=== PATIENT | female | born 1935 | race Caucasian/White ===

== ENCOUNTER → 2016-04-16 | Outpatient (CLI) | payer MEDICARE, BC ==
--- NOTE | 2016-04-16 09:16 | CT ---
EXAMINATION TYPE: CT brain wo con DATE OF EXAM: 04/16/2016 8:57 AM COMPARISON: Previous study dated 04/13/2011. HISTORY: Concussion CT DLP: 1189 mGycm Automated exposure control for dose reduction was used. FINDINGS: There are generalized changes of sulcal prominence and ventriculomegaly, compatible with mild atrophi c change. There is diffuse periventricular white matter lucency, compatible with chronic white matter ischemic change. There is no acute focal lesion, mass effect or midline shift identified. I do not s ee evidence of intracranial blood. There is vascular calcification present. Visualized portions of the paranasal sinuses and mastoids are clear. No depressed skull fracture is s een. IMPRESSION: 1. NO ACUTE INTRACRANIAL ABNORMALITY. 2. MILDLY ATROPHIC CHANGE. 3. CHRONIC WHITE MATTER ISCHEMIC CHANGE.
== END | disposition home or self-care (01) ==
LOC: RADCTMAIN 08:37
PROVIDERS: ATTEND Emergency Medicine
DX: S06.0X9A Concussion with loss of consciousness of unspecified duration, initial encounter (principal); G31.9 Degenerative disease of nervous system, unspecified; I67.82 Cerebral ischemia
CPT/HCPCS: 70450

== ENCOUNTER 2016-06-07 17:30 | Observation (INO) | payer MEDICARE, BC ==
[2016-06-07] MEDS ORDERED: SODIUM CHLORIDE 0.9% 1,000 ML IV STA (18:13)
[2016-06-07] MEDS ORDERED: NITROGLYCERIN OINT 1 INCH/GM PACKET TOPICAL STA (18:13)
[2016-06-07] MEDS ORDERED: ASPIRIN 81 MG CHEW PO STA (18:13)
[2016-06-07 18:29] LABS: Basophils % (A) 0 %; CH 30.2; CHCM 33.2; Eosinophils # (A) 0.1 k/uL (0-0.7); Eosinophils % (A) 1 %; HCT 41.8 % (34.0-46.0); HDW 2.25; HGB 13.4 gm/dL (11.4-16.0); Luc # (Auto) 0.27; Luc % (Auto) 3; Lymphocytes # (A) 1.8 k/uL (1.0-4.8); Lymphocytes % (A) 18 %; MCH 29.4 pg (25.0-35.0); MCHC 32.1 g/dL (31.0-37.0); MCV 91.4 fL (80.0-100.0); Mean Platelet Volume 7.3; Monocytes # (A) 0.6 k/uL (0-1.0); Monocytes % (A) 6 %; Neutrophils # (A) 7.1 k/uL (1.3-7.7); Neutrophils % (A) 72 %; RBC 4.57 m/uL (3.80-5.40); WBC 9.9 k/uL (3.8-10.6); WBC (Perox) 9.89
[2016-06-07 18:40] LABS: ALT 34 U/L (9-52); AST 30 U/L (14-36); Alkaline Phosphatase 80 U/L (38-126); Anion Gap 11 mmol/L; Blood Urea Nitrogen 32 mg/dL (7-17); Calcium 9.2 mg/dL (8.4-10.2); Carbon Dioxide 27 mmol/L (22-30); Chloride 103 mmol/L (98-107); Glucose 105 mg/dL (74-99); Magnesium 1.9 mg/dL (1.6-2.3); Non-African American GFR(MDRD) >60 (>60 ml/min/1.73 sqM); Potassium 3.9 mmol/L (3.5-5.1); Sodium 141 mmol/L (137-145); Total Bilirubin 0.4 mg/dL (0.2-1.3); Total Protein 6.9 g/dL (6.3-8.2)
--- NOTE | 2016-06-07 18:40 | XR ---
EXAMINATION TYPE: XR chest 2V DATE OF EXAM: 06/07/2016 6:34 PM COMPARISON: NONE HISTORY: Process seen. TECHNIQUE: Frontal and lateral views of the chest are obtained. FINDINGS: Sternal wires, mediastinal clips, and epicardial pacer wires are present. There is chronic changes without suspicious focal air space opacity, pleural effusion, or pneumothorax seen. The card iac silhouette size is within normal limits. There is moderate to large size hiatal hernia. The osseo us structures are demineralized. Degenerative change left glenohumeral joint is noted. IMPRESSION: Chronic changes without acute pulmonary process.
[2016-06-07 18:47] LABS: INR 1.1 (<1.1); Partial Thromboplastin Time 26.7 sec (22.0-30.0); Prothrombin Time 10.8 sec (9.0-12.0)
[2016-06-07 18:49] LABS: Creatine Kinase 111 U/L (30-135)
[2016-06-07 19:02] LABS: Creatine Kinase MB 1.8 ng/mL (0.0-2.4); Troponin I <0.012 ng/mL (0.000-0.034)
--- NOTE | 2016-06-07 22:02 | ED ---
Chest Pain HPI - General Chief Complaint: Chest Pain Stated Complaint: CHEST PAIN, LEFT ARM, TOOK TWO NITRO Time Seen by Provider: 06/07/16 17:48 Source: patient Mode of arrival: wheelchair Limitations: no limitations - History of Present Illness Initial Comments: Centered with the left arm pain and left-sided chest pain also pain in the left shoulder started about 4:30 PM today she was quite busy today she was very busy physically lifting rearranging heavy boxes whole day and now initially she thought it could've been overexertion. That she stated she didn't have chest pain when she had a heart attack at this time and she had a CABG she status post CABG about 9 years ago and a she was bit short winded at that time not now she denies any pleuritic chest pain no fever no chills no nausea no vomiting no cold sweats - Related Data Home Medications Medication Instructions Recorded Confirmed Ascorbic Acid [Vitamin C] 500 mg PO DAILY 06/07/16 06/07/16 Aspirin EC [Ecotrin Low Dose] 81 mg PO DAILY 06/07/16 06/07/16 Calcium Carbonate/Vitamin D3 1 tab PO DAILY 06/07/16 06/07/16 [Caltrate 600 Plus D3 Tablet] Cholecalciferol [Vitamin D3] 1,000 unit PO DAILY 06/07/16 06/07/16 Ferrous Sulfate [Feosol] 325 mg PO BID 06/07/16 06/07/16 Losartan-Hctz 50-12.5 mg [Hyzaar 1 tab PO DAILY 06/07/16 06/07/16 50-12.5] Meclizine [Antivert] 25 mg PO HS 06/07/16 06/07/16 Nitroglycerin Sl Tabs [Nitrostat] 0.4 mg PO Q5M PRN 06/07/16 06/07/16 Omeprazole 20 mg PO DAILY 06/07/16 06/07/16 Psyllium Husk 100% [Metamucil] 6 gm PO HS 06/07/16 06/07/16 Simvastatin [Zocor] 20 mg PO HS 06/07/16 06/07/16 Allergies Allergy/AdvReac Type Severity Reaction Status Date / Time morphine Allergy Itching Verified 06/07/16 18:54 Review of Systems ROS Statement: Those systems with pertinent positive or pertinent negative responses have been documented in the HPI. ROS Other: All systems not noted in ROS Statement are negative. EKG Findings - EKG Comments: EKG Findings:: Seferino sinus rhythm ventricular rate is 70 MN interval is 184 QRS duration is 110 QT/QTc is 420/462 review of this EKG does not reveal any ST elevation or ST depression Past Medical History Past Medical History: Coronary Artery Disease (CAD), Hyperlipidemia, Hypertension History of Any Multi-Drug Resistant Organisms: None Reported Past Surgical History: Cholecystectomy, Coronary Bypass/CABG, Orthopedic Surgery Additional Past Surgical History / Comment(s): knee cataracts Past Psychological History: No Psychological Hx Reported Smoking Status: Never smoker Past Alcohol Use History: None Reported Past Drug Use History: None Reported General Exam - General Exam Comments Initial Comments: General: The patient is awake and alert, in no distress, and does not appear acutely ill. Skin: Skin is warm and dry and no rashes or lesions are noted. Eye: Pupils are equal, round and reactive to light, extra-ocular movements are intact; there is normal conjunctiva bilaterally. Ears, nose, mouth and throat: There are moist mucous membranes and no oral lesions. Neck: The neck is supple, there is no tenderness or JVD. Cardiovascular: There is a regular rate and rhythm. No murmur, rub or gallop is appreciated. Respiratory: To auscultation bilateral, no wheezing no rhonchi no distress respiratory antonio noticed Gastrointestinal: Soft, non-distended, non-tender abdomen without masses or organomegaly noted. There is no rebound or guarding present. Bowel sounds are unremarkable. Back: There is no tenderness to palpation in the midline. There is no obvious deformity. Musculoskeletal: Normal ROM, no tenderness, There is no pedal edema. There is no calf tenderness or swelling. No cords were appreciated. Neurological: CN II-XII intact, Cranial nerves III through XII are intact. There are no obvious motor or sensory deficits. Coordination appears grossly intact. Speech is normal. Psychiatric: Cooperative, appropriate mood & affect, normal judgment. Limitations: no limitations Course Vital Signs 06/07/16 06/07/16 06/07/16 17:34 17:45 17:54 Temperature 97.5 F L Pulse Rate 71 71 Pulse Rate [ 72 Bilateral Radial] Respiratory 18 14 Rate Blood Pressure 111/59 100/64 O2 Sat by Pulse 97 98 Oximetry 06/07/16 06/07/16 19:08 20:03 Temperature 98.4 F Pulse Rate 68 66 Pulse Rate [ Bilateral Radial] Respiratory 15 18 Rate Blood Pressure 121/70 106/62 O2 Sat by Pulse 98 97 Oximetry Clinically she looks well, CBC, INR, troponin, compressive metabolic panel, chest x-ray, EKG are unremarkable considering her very artery disease (to watch her for 23 hours do serial cardiac markers and cardiology consult, these were discussed with the patient and the family orally complete patient be admitted to observation with the cardiology consult Disposition Clinical Impression: Chest pain, History of coronary artery disease Disposition: ADMITTED IP TO THIS HOSP Condition: Good
[2016-06-07] MEDS ORDERED: NITROGLYCERIN SL TABS 0.4 MG TAB SUBLINGUAL PRN (22:03)
[2016-06-07] MEDS ORDERED: HEPARIN SODIUM,PORCINE/D5W PMX 25,000 UNIT in DEXTROSE/WATER 1 500ML.BAG IV SCH (22:15)
[2016-06-07] MEDS: HEPARIN SODIUM,PORCINE 5,000 UNIT/ML 1 ML VIAL IV ONE (22:56)
[2016-06-08 00:08] VITALS: BMI 30.2
[2016-06-08 00:12] LABS: Creatine Kinase 89 U/L (30-135)
[2016-06-08 00:25] LABS: Creatine Kinase MB 1.5 ng/mL (0.0-2.4); Troponin I <0.012 ng/mL (0.000-0.034)
[2016-06-08 06:06] LABS: Cholesterol 124 mg/dL (<200); HDL Cholesterol 49 mg/dL (40-60); Triglycerides 98 mg/dL (<150)
[2016-06-08 06:41] LABS: Creatine Kinase 78 U/L (30-135)
[2016-06-08] MEDS: HEPARIN SODIUM,PORCINE 5,000 UNIT/ML 1 ML VIAL IV ONE (06:43)
[2016-06-08] MEDS ORDERED: HEPARIN SODIUM,PORCINE 5,000 UNIT/ML 1 ML VIAL IV PRN (06:44)
[2016-06-08] MEDS ORDERED: HEPARIN SODIUM,PORCINE/D5W PMX 25,000 UNIT in DEXTROSE/WATER 1 500ML.BAG IV SCH (06:45)
[2016-06-08 06:53] LABS: Creatine Kinase MB 1.2 ng/mL (0.0-2.4); Troponin I <0.012 ng/mL (0.000-0.034)
[2016-06-08] MEDS ORDERED: CHOLECALCIFEROL 1,000 UNIT TAB PO SCH (09:00)
[2016-06-08] MEDS ORDERED: LOSARTAN-HCTZ 50-12.5 MG 1 EACH TAB PO SCH (09:00)
[2016-06-08] MEDS ORDERED: NON-FORMULARY DRUG (Aspirin Ec 81 MG) PO SCH (09:00)
[2016-06-08] MEDS ORDERED: PANTOPRAZOLE 40 MG TABLET PO SCH (09:00)
[2016-06-08] MEDS ORDERED: CALCIUM CARB-VIT D 500MG-200UN 1 EACH TAB PO SCH (09:00)
[2016-06-08] MEDS ORDERED: ASPIRIN 325 MG TAB PO SCH (09:00)
[2016-06-08] MEDS ORDERED: ASCORBIC ACID 500 MG TAB PO SCH (09:00)
[2016-06-08] MEDS ORDERED: FERROUS SULFATE 325 MG TAB PO SCH (09:00)
[2016-06-08 11:31] VITALS: BP 116/64; PULSE 71; RESP 18; TEMP 97.8
--- NOTE | 2016-06-08 13:09 | P.DS ---
Providers Date of admission: 06/07/16 22:03 Expected date of discharge: 06/08/16 Attending physician: Scott Mcfadden Primary care physician: Scott Mcfadden [facility] Course: 80-year-old female presented on the day of admission to the emergency room to be evaluated for a chief complaint of left shoulder left anterior chest wall pain. Patient stated that she been very busy throughout the day had been moving and physically lifting and rearranging heavy boxes the entire day. Patient stated that she felt like she overexerted herself. Patient stated the pain did not completely go away became concerned and presented to the emergency room to be evaluated for the above-mentioned symptoms. Patient denied any cough fever chills no nausea vomiting. Patient stated after arriving the chest pain had resolved. Patient does have a history of coronary artery disease prior coronary artery bypass grafting. Cardiac enzymes 3 sets were negative. Patient's chest pain sounds pleuritic probable muscle skeletal patient was felt to be appropriate to be discharged Impression discharge diagnosis Present on admission left shoulder anterior chest pain atypical negative cardiac enzymes no evidence of acute coronary syndrome Known history of coronary artery disease prior coronary artery bypass grafting 9 years prior Essential hypertension The above dictated assessment and findings were discussed with dr mcfadden . Impression and the plan of care have been dictated as directed. Echo Walsh nurse practitioner acting as a scribe for dr mcfadden. Patient Condition at Discharge: Good Plan - Discharge Summary Discharge Medication List Ascorbic Acid [Vitamin C] 500 mg PO DAILY 06/07/16 [History] Aspirin EC [Ecotrin Low Dose] 81 mg PO DAILY 06/07/16 [History] Calcium Carbonate/Vitamin D3 [Caltrate 600 Plus D3 Tablet] 1 tab PO DAILY [History] Cholecalciferol [Vitamin D3] 1,000 unit PO DAILY 06/07/16 [History] Ferrous Sulfate [Iron (65 MG Elemental)] 325 mg PO BID 06/07/16 [History] Losartan-Hctz 50-12.5 mg [Hyzaar 50-12.5] 1 tab PO DAILY 06/07/16 [History] Meclizine [Antivert] 25 mg PO HS 06/07/16 [History] Nitroglycerin Sl Tabs [Nitrostat] 0.4 mg PO Q5M PRN 06/07/16 [History] Omeprazole 20 mg PO DAILY 06/07/16 [History] Psyllium Husk 100% [Metamucil Packet] 6 gm PO HS 06/07/16 [History] Simvastatin [Zocor] 20 mg PO HS 06/07/16 [History] Follow up Appointment(s)/Referral(s): Scott Mcfadden MD [Primary Care Provider] - 1-2 days Discharge Disposition: HOME SELF-CARE
[2016-06-08] MEDS ORDERED: PSYLLIUM HUSK 100% 6 GM PACKET PO SCH (21:00)
[2016-06-08] MEDS ORDERED: ATORVASTATIN 10 MG TAB PO SCH (21:00)
[2016-06-08] MEDS ORDERED: MECLIZINE 25 MG TAB PO SCH (21:00)
--- NOTE | 2016-06-08 22:33 | HP ---
DATE OF ADMISSION: 06/07/2016 CHIEF COMPLAINT: Left arm pain. HISTORY OF PRESENT ILLNESS: This 80-year-old white female who has a prior history of heart disease came to the emergency room complaining of left biceps pain. She was doing a lot of heavy lifting and moving. EKG and enzymes are normal. The emergency room physician was concerned about sending her home. She had no nausea, vomiting, shortness of breath, palpitations, syncope, diaphoresis, etc. She feels fine. REVIEW OF SYSTEMS: She has had no other signs or symptoms. Past medical history, family history, and personal and social histories are all otherwise unremarkable. She takes: 1. Losartan. 2. Omeprazole. 3. Xanax p.r.n. 4. Lasix. 5. Aspirin. 6. Zocor. PHYSICAL EXAMINATION: Blood pressure 132/83 with a pulse of 75, respirations of 15, and she is afebrile. In general she appeared to be well developed, well nourished, in no acute distress. Skin color is normal. Skin is warm and dry. Lymph nodes are not enlarged. Head, ears, eyes, nose, mouth and throat were normal. Neck veins are not distended. Thyroid is not enlarged. Chest is clear. Cardiac exam is normal. The abdomen is soft, nontender. There are no masses or visceromegaly. Extremities are normal. Neurologically she is intact. She is admitted to the hospital with the diagnoses: 1. Left upper extremity myalgias. 2. ( ) 3. History of hypertension. 4. History of coronary artery disease. PLAN: 1. Bed rest. 2. IV fluids. 3. Serial EKGs and enzymes.
--- NOTE | 2016-06-08 22:35 | PN ---
DATE OF SERVICE: 06/08/2016 CHIEF COMPLAINT: Pain in the left arm. HISTORY OF PRESENT ILLNESS: This lady is doing well and all of her studies have been negative. She will go home. She will follow up in the office and she will be on the same medications she has been on. She will be set up for a stress study because she has been feeling a little bit tired lately, but she has had no other symptoms. Discharge will be arranged by the nurse practitioner.
== END 2016-06-08 14:30 | disposition home or self-care (01) ==
LOC: EC 17:30 → 3OBS 22:03
PROVIDERS: ADMIT Family Medicine; ATTEND Family Medicine
DX: R07.89 Other chest pain (principal); E78.5 Hyperlipidemia, unspecified; I10 Essential (primary) hypertension; M79.1 Myalgia; I25.10 Atherosclerotic heart disease of native coronary artery without angina pectoris; Z95.1 Presence of aortocoronary bypass graft; Z79.82 Long term (current) use of aspirin; Z79.899 Other long term (current) drug therapy; Z88.5 Allergy status to narcotic agent
CPT/HCPCS: 36415; 93005; 83880; 80061; 80053; 82550 ×2; 82553 ×2; 83735; 84484 ×2; 85025; 85610; 85730 ×2; 71020; 99285; 96376; G0378 ×2; J1644 ×3; 96365; 96366

== ENCOUNTER → 2016-09-02 | Outpatient (CLI) | payer MEDICARE, BC ==
--- NOTE | 2016-09-02 10:26 | US ---
EXAMINATION TYPE: US carotid duplex BILAT DATE OF EXAM: 09/02/2016 COMPARISON: NONE CLINICAL HISTORY: Mental status change R41.82. delay in speech, no prior issues. EXAM MEASUREMENTS: RIGHT: Peak Systolic Velocity (PSV) cm/sec ----- Right CCA: 62.4 ----- Right ICA: 115 ----- Right ECA: 69.2 ICA/CCA ratio: 1.8 RIGHT: End Diastole cm/sec ----- Right CCA: 19.2 ----- Right ICA: 38.1 ----- Right ECA: 8.8 LEFT: Peak Systolic Velocity (PSV) cm/sec ----- Left CCA: 52.3 ----- Left ICA: 105 ----- Left ECA: 88.8 ICA/CCA ratio: 2.0 LEFT: End Diastole cm/sec ----- Left CCA: 16.7 ----- Left ICA: 32.2 ----- Left ECA: 13.7 VERTEBRALS (direction of flow): Right Vertebral: Antegrade Left Vertebral: Antegrade Mild changes, no elevated velocities, bilateral torturous ICAs, no significant stenosis. Grayscale images show no significant focal plaque at carotid bulb level. Velocity measurements remain within normal limits in visualized portion of both internal carotid arteries. IMPRESSION: No hemodynamically significant stenosis is seen in either internal carotid artery.
== END | disposition home or self-care (01) ==
LOC: RADUSWWP 09:27
PROVIDERS: ATTEND Family Medicine
DX: R41.82 Altered mental status, unspecified (principal)
CPT/HCPCS: 93880

== ENCOUNTER → 2016-10-07 | Outpatient (CLI) | payer MEDICARE, BC ==
--- NOTE | 2016-10-12 12:36 | EM ---
HOLTER MONITOR The patient was monitored 24 hours. Baseline rhythm was sinus mechanism. The average rate 82 beats per minute, minimum was 61, maximum 106 beats per minute. Ventricular ectopic activity was present in the form of rare single PVCs. Supraventricular ectopic activity was present in the form of rare single PACs. No diary was available. CONCLUSION: 1. Sinus mechanism baseline rhythm. 2. Rare ventricular ectopic activity. 3. Rare supraventricular ectopic activity. 4. No diary was available. MTDD
== END | disposition home or self-care (01) ==
LOC: RADECHMAIN 12:06
PROVIDERS: ATTEND Family Medicine
DX: I49.8 Other specified cardiac arrhythmias (principal)
CPT/HCPCS: 93225; 93226

== ENCOUNTER → 2016-10-25 | Outpatient (CLI) | payer MEDICARE, BC ==
--- NOTE | 2016-10-26 10:31 | BD ---
EXAMINATION TYPE: MG DEXA axial skeleton. DATE OF EXAM: 10/25/2016 COMPARISON: 09.30.2014 CLINICAL HISTORY: M80.0 OSTEOPOROSIS Height: 63 Weight: 181 FRAX RISK QUESTIONS: Alcohol (3 or more units per day): NO Family History (Parent hip fracture): YES Glucocorticoids (More than 3mos): NO (Ex: prednisone, prednisolone, methylprednisolone, dexamethasone, and hydrocortisone). History of Fracture in Adulthood: YES Secondary Osteoporosis: NO 1. Type 1 Diabetes: NO 2. Hyperthyroidism: NO 3. Menopause before 45: NO 4. Malnutrition: NO 5. Chronic liver disease: NO Rheumatoid Arthritis: NO Current Tobacco Use: NO RISK FACTORS HISTORY OF: RIB FRACTURES X2, JULY 2016 Family History of Osteoporosis: YES, WITH BOTH HIPS FRACTURED Active: BEST SHE CAN, USES A CANE Diet low in dairy products/other sources of calcium: NO Postmenopausal woman: 51 YRS OLD Lost more than 2 inches in height since high school: YES Frequent falls: YES, USES CANE Hyperparathyroidism: NO Adrenal Insufficiency: NO MEDICATIONS: Prednisone or other steroids: NO Additional Medications: BP MEDS, HEART MEDS NSAIDs, CALCIUM AND VIT D, IRON TABLET AND BABY ASPIRIN. Additional History: OSTEOARTHRITIS, BILAT TKRS EXAM MEASUREMENTS: Bone mineral densitometry was performed using the [employer] System. Bone mineral density as measured about the Lumbar spine is: ----- L1-L4(G/cm2): 0.960 T Score Values are as follows: ----- L1: -2.8 ----- L2: -3.1 ----- L3: -1.0 ----- L4: -1.2 ----- L1-L4: -1.8 Bone mineral density has: Increased 1.1% since study of: 09.30.2014 Bone mineral density about the R hip (g/cm2): 0.713 Bone mineral density about the L hip (g/cm2): 0.564 T Score values are as follows: -----R Neck: -2.3 -----L Neck: -3.5 -----R Total: -2.3 -----L Total: -3.5 Bone mineral density has: Decreased -13.2% since study of: 09.30.2014 FRAX %'S: THERE IS A 64.4% CHANCE OF A MAJOR OSTEOPOROTIC FX AND A 53.4% CHANCE OF HIP FX.....PRO BABILITY IN 10 YRS TIME IMPRESSION: Osteoporosis (T Score less than -2.5) as noted by T Score values at the bilateral hips and 2 consecut ra levels in the low back remains present. Bone density is decreased in measurement in the bilateral hips. There remains increased fracture risk and therapy is usually indicated based on age.Re-Screen 1-2 years . NOTE: T-SCORE=SD OF THE YOUNG ADULT MEAN.
--- NOTE | 2016-10-27 08:22 | MM ---
Reason for exam: clinical finding. Last mammogram was performed 1 year and 5 months ago. History: Patient is postmenopausal. Family history of breast cancer in maternal cousin. Took estrogen for 2 years beginning at age 67. Physical Findings: Nurse Summary: A .25cm nodule in the right breast at 9 o'clock, and a 0.5cm nodule at 2:30 o'clock (nurse dw). MG 3D Diag Mammo W/Cad SARAH Bilateral CC and MLO view(s) were taken. Prior study comparison: June 02, 2015, bilateral MG 3d diag mammo w/cad SARAH. December 24, 2013, bilateral MG screening mammo w CAD. October 05, 2011, CAD bilateral diagnostic mammogram. The breast tissue is heterogeneously dense. This may lower the sensitivity of mammography. Finding: There are typically benign dystrophic, round calcifications in both breasts. There is no discrete abnormality. These results were verbally communicated with the patient and result sheet given to the patient on 10/25/16. ASSESSMENT: Incomplete: need additional imaging evaluation, BI-RAD 0 RECOMMENDATION: Ultrasound of both breasts. (Palpable by nurse).
== END | disposition home or self-care (01) ==
LOC: RADMAMWWP 13:26
PROVIDERS: ATTEND Family Medicine
DX: N64.4 Mastodynia (principal); M81.0 Age-related osteoporosis without current pathological fracture
CPT/HCPCS: 77080; 76642; G0204; G0279

== ENCOUNTER 2016-12-13 17:38 | Emergency (ER) | payer MEDICARE, BC ==
[2016-12-13 17:45] VITALS: BP 110/61; PULSE 81; RESP 16; TEMP 97.6
[2016-12-13] MEDS ORDERED: TOPICAL SKIN ADHESIVE 1 EACH AMP TOPICAL ONE (18:34)
[2016-12-13] MEDS ORDERED: DIPH,PERTUS(ACELL)TETVAC-LF 0.5 ML VIAL IM ONE (18:35)
[2016-12-13] MEDS ORDERED: ACETAMINOPHEN TAB 500 MG TAB PO STA (18:36)
--- NOTE | 2016-12-13 18:56 | ED ---
Wound/Laceration HPI - General Chief Complaint: Wound/Laceration Stated Complaint: head and arm lac Time Seen by Provider: 12/13/16 18:28 Source: patient, family Mode of arrival: wheelchair Limitations: no limitations - History of Present Illness Initial Comments: 81-year-old female patient presents to emergency department today for evaluation of a right arm skin tear and injury to her right parietal scalp. Patient states that she was in the shed reaching up into the rafters to grab something when a board fell and hit her in the head and then in the arm. She denies any loss of consciousness at the time of the injury. She states that she did have difficulty getting the bleeding from her scalp to stop, however bleeding is currently controlled. She states that this occurred around 11 AM. She states that she didn't come in right away because her transportation had an appointment. She denies any difficulty with range of motion to her arm. Patient denies any headache, neck pain, back pain, chest pain, shortness of breath, dizziness, weakness, abdominal pain, nausea, vomiting, or difficulties with bowel movements or urination. Family members deny any altered mental status or confusion. She is unsure when her last tetanus vaccine was. - Related Data Home Medications Medication Instructions Recorded Confirmed Ascorbic Acid [Vitamin C] 500 mg PO DAILY 06/07/16 12/13/16 Aspirin EC [Ecotrin Low Dose] 81 mg PO DAILY 06/07/16 12/13/16 Calcium Carbonate/Vitamin D3 1 tab PO DAILY 06/07/16 12/13/16 [Caltrate 600 Plus D3 Tablet] Cholecalciferol [Vitamin D3] 1,000 unit PO DAILY 06/07/16 12/13/16 Ferrous Sulfate [Iron (65 MG 325 mg PO BID 06/07/16 12/13/16 Elemental)] Losartan-Hctz 50-12.5 mg [Hyzaar 1 tab PO DAILY 06/07/16 12/13/16 50-12.5] Meclizine [Antivert] 25 mg PO HS 06/07/16 12/13/16 Nitroglycerin Sl Tabs [Nitrostat] 0.4 mg PO Q5M PRN 06/07/16 12/13/16 Omeprazole 20 mg PO DAILY 06/07/16 12/13/16 Psyllium Husk 100% [Metamucil 6 gm PO HS 06/07/16 12/13/16 Packet] Simvastatin [Zocor] 20 mg PO HS 06/07/16 12/13/16 Allergies Allergy/AdvReac Type Severity Reaction Status Date / Time morphine Allergy Itching Verified 12/13/16 17:45 Review of Systems ROS Statement: Those systems with pertinent positive or pertinent negative responses have been documented in the HPI. ROS Other: All systems not noted in ROS Statement are negative. Past Medical History Past Medical History: Coronary Artery Disease (CAD), Hyperlipidemia, Hypertension, Osteoarthritis (OA) History of Any Multi-Drug Resistant Organisms: None Reported Past Surgical History: Bladder Surgery, Cholecystectomy, Coronary Bypass/CABG, Orthopedic Surgery, Tubal Ligation Additional Past Surgical History / Comment(s): Bilat knee replace, bi lat cataracts Past Anesthesia/Blood Transfusion Reactions: No Reported Reaction Past Psychological History: No Psychological Hx Reported Smoking Status: Never smoker Past Alcohol Use History: None Reported Past Drug Use History: None Reported General Exam Limitations: no limitations General appearance: alert, in no apparent distress, other (Well-developed, well- nourished, female patient in no acute distress. Acutely responsive. Vital signs upon presentation were temperature 97.6, pulse 81, respirations 16, blood pressure 110/61, pulse ox 98% on room air.) Head exam: Present: normocephalic, other (There is a small laceration, puncture to the right parietal scalp with minimal surrounding swelling. Bleeding is controlled. No bony tenderness, step-off, or deformity noted.) Eye exam: Present: normal appearance, PERRL, EOMI. Absent: scleral icterus, conjunctival injection, nystagmus, periorbital swelling ENT exam: Present: normal exam, normal oropharynx, mucous membranes moist Neck exam: Present: normal inspection, full ROM, other (Nontender, no step-off, no deformity to firm midline palpation of the thoracic and lumbar vertebrae. Full range of motion without pain or limitation.). Absent: tenderness, meningismus, lymphadenopathy Respiratory exam: Present: normal lung sounds bilaterally. Absent: respiratory distress, wheezes, rales, rhonchi, stridor Cardiovascular Exam: Present: regular rate, normal rhythm, normal heart sounds. Absent: systolic murmur, diastolic murmur, rubs, gallop, clicks GI/Abdominal exam: Present: soft, normal bowel sounds. Absent: distended, tenderness, guarding, rebound, rigid Extremities exam: Present: full ROM (Without limitation pain, or difficulty.), normal capillary refill, other (Skin tear noted to the dorsal aspect of the right forearm, 3 cm x 4 cm.). Absent: tenderness, pedal edema, joint swelling, calf tenderness Back exam: Present: normal inspection, other (Nontender, no step-off, no deformity to firm midline palpation of the thoracic and lumbar vertebrae. Full range of motion without pain or limitation.). Absent: tenderness, vertebral tenderness Neurological exam: Present: alert, oriented X3, CN II-XII intact Psychiatric exam: Present: normal affect, normal mood Skin exam: Present: warm, dry, intact, normal color. Absent: rash Course Vital Signs 12/13/16 17:43 Temperature 97.6 F Pulse Rate 81 Respiratory 16 Rate Blood Pressure 110/61 O2 Sat by Pulse 98 Oximetry Procedures - Laceration Laceration #1 Time Out Performed: Yes Indication: other (Skin tear) Site: upper extremity (Right forearm) Size (cm): 3 (3cm x 4cm) Description: flap, irregular Depth: simple, single layer Pre-repair: irrigated extensively Type of Sutures: other (Dermabond) Patient Tolerated Procedure: well, no complications Medical Decision Making - Medical Decision Making 81-year-old female patient presented for evaluation of a small laceration/ puncture to her right parietal scalp, and a skin tear to her right forearm. Evaluation of the laceration to her scalp did show more of a puncture type wound , no closure necessary, bleeding controlled. Physical exam revealed a skin tear to her right forearm. Was able to cleanse the area and irrigate. Did tease skin back over the care and was able to Dermabond this closed. Neurological status is intact. Patient is acutely responsive, speech is fluid, fully verbal, answers questions appropriately. She was educated regarding worsening head injury symptoms. She is instructed to monitor her wounds for signs or symptoms of infection. Her tetanus was updated today. She is instructed to follow up for recheck with her primary care physician in one to 2 days. She is instructed to return here immediately for any new, worsening, or concerning symptoms. Patient verbalizes understanding and agrees with this plan. Disposition Clinical Impression: Skin tear of right forearm without complication, Puncture wound of scalp Disposition: HOME SELF-CARE Condition: Good Instructions: Head Injury (ED), Skin Adhesive Care (ED), Skin Tear (ED) Additional Instructions: Monitor wound to right forearm for signs or symptoms of infection including redness, swelling, drainage of pus him a fever, or chills. Monitor for signs of worsening head injury including but not limited to headache, dizziness, visual change, nausea, vomiting, or confusion. Follow up with her primary care physician for recheck in 1-2 days. Return here immediately for any new, worsening, or concerning symptoms. Referrals: Scott Carrillo MD [Primary Care Provider] - 1-2 days Time of Disposition: 18:55
== END 2016-12-13 19:03 | disposition home or self-care (01) ==
LOC: EC 17:38
DX: S51.811A Laceration without foreign body of right forearm, initial encounter (principal); S01.03XA Puncture wound without foreign body of scalp, initial encounter; I25.10 Atherosclerotic heart disease of native coronary artery without angina pectoris; E78.5 Hyperlipidemia, unspecified; I10 Essential (primary) hypertension; M19.90 Unspecified osteoarthritis, unspecified site; Z96.653 Presence of artificial knee joint, bilateral; Z23 Encounter for immunization; Z88.5 Allergy status to narcotic agent; Z79.82 Long term (current) use of aspirin; Z79.899 Other long term (current) drug therapy; W20.8XXA Other cause of strike by thrown, projected or falling object, initial encounter; Y93.89 Activity, other specified; Y92.89 Other specified places as the place of occurrence of the external cause
CPT/HCPCS: 12002; 90471; 90715; 99283

== ENCOUNTER → 2017-10-27 | Outpatient (CLI) | payer MEDICARE, BC ==
--- NOTE | 2017-10-31 08:35 | MM ---
Reason for exam: screening (asymptomatic). Last mammogram was performed 1 year ago. History: Patient is postmenopausal. Family history of breast cancer in maternal cousin. Took estrogen for 2 years beginning at age 67. Physical Findings: A clinical breast exam by your physician is recommended on an annual basis and results should be correlated with mammographic findings. MG 3D Screening Mammo W/Cad Bilateral CC and MLO view(s) were taken. Technologist: Shirin Perez RT (R)(M) Prior study comparison: October 25, 2016, bilateral MG 3d diag mammo w/cad SARAH. June 02, 2015, bilateral MG 3d diag mammo w/cad SARAH. No significant changes when compared with prior studies. ASSESSMENT: Benign, BI-RAD 2 RECOMMENDATION: Routine screening mammogram of both breasts in 1 year.
== END | disposition home or self-care (01) ==
LOC: RADMAMWWP 09:10
PROVIDERS: ATTEND Family Medicine
DX: Z12.31 Encounter for screening mammogram for malignant neoplasm of breast (principal)
CPT/HCPCS: 77063; 77067

== ENCOUNTER → 2018-06-02 | Outpatient (CLI) | payer MEDICARE, BC ==
[2018-06-02 17:38] LABS: Blood Urea Nitrogen 30 mg/dL (7-17)
--- NOTE | 2018-06-06 13:02 | CT ---
EXAMINATION TYPE: CT abdomen pelvis w con DATE OF EXAM: 06/02/2018 HISTORY: RUQ pain. Palpate pain mid abdomen. CT DLP: 1335mGycm Automated Exposure Control for Dose Reduction was Utilized. CONTRAST: CT scan of the abdomen and pelvis is performed with IV Contrast, patient injected with 100 mL of Isov ue 300. COMPARISON: None. FINDINGS: LUNG BASES: Within the limited images of the thorax there is complete herniation of the stomach into the thorax without evidence of current gastric volvulus. The stomach folds upon itself distally but d oes not appear twisted or obstructed. The pylorus is mild thickening that may relate to contraction. No significant contrast is seen within the distal esophagus. Distal esophagus is nondilated. Also wit hin the hernia defect is herniation of mesenteric vasculature, the pancreas, and mesenteric fat. The celiac axis is also seen at the hernia defect. LIVER/GB: There is very minimal intrahepatic biliary ductal dilatation that may relate to this patien t's postcholecystectomy status. Punctate benign solitary hepatic granuloma is present. Gallbladder cazares rgically absent. Postsurgical dilatation of the extrahepatic common bile duct is seen. PANCREAS: Again the pancreas is located within the mediastinum posteriorly. Hepatic duct is slightly prominent however no gross evidence of pancreatic mass is seen.. SPLEEN: No significant abnormality is seen. ADRENALS: Very mild thickening of the adrenal glands is seen although the adrenals maintain their nor mal adreniform shape suggesting underlying adrenal gland hyperplasia (mild degree). KIDNEYS: There is a large right renal cyst measuring 17.4 x 12.5 x 18.7 cm. This has mass effect upon the right kidney although there is no alteration in function of the remaining kidney. This also has mass effect upon the renal vein, inferior vena cava crating a diminutive caliber, and adjacent bowel. This extends into the pelvis occupying the entire right lateral abdomen. There is no resultant hydro nephrosis seen. Left renal cortical cyst measures 3.3 cm. Numerous left renal sinus cysts are present . No hydronephrosis. BOWEL: There is diffuse bowel wall thickening of the sigmoid colon and numerous sigmoid diverticula. Mild haziness throughout the mesentery suggesting component of mild mesenteric edema. Moderate amount retained colonic stool is present. The cecum is displaced towards midline. UTERUS/ADNEXA: Atrophic otherwise unremarkable. LYMPH NODES: No greater than 1cm abdominal or pelvic lymph nodes are appreciated. Nonenlarged lymph n ode measures 5 mm in short axis noted along the right external iliac chain on image 57. OSSEOUS STRUCTURES: There is diffuse osseous demineralization. Nonspecific sclerotic lesion within th e left iliac bone is present. Mild degenerative changes of the spine are noted. There is grade 1 ante rolisthesis of L4 on L5, likely on a degenerative basis due to hypertrophic facets. OTHER: Extensive atherosclerosis is seen of the abdominal aorta and its branches. IMPRESSION: 1. Large benign-appearing right renal cyst without internal complexity. This measures up to 18.7 cm i n craniocaudal dimension and has mass effect upon the surrounding intra-abdominal structures with dim inutive caliber of the inferior vena cava due to compression. Symptomatic percutaneous drainage could be considered. 2. Entirely intrathoracic stomach with large hernia defect. Nearly the entirety of the pancreas is in trathoracic within the hernia defect in addition to the celiac axis. 3. Long segment bowel wall thickening of the sigmoid colon with numerous colonic diverticula. Finding s are likely sequela of chronic colitis. Correlate with clinical symptoms to exclude mild acute compo nent as there is mild mesenteric haziness throughout the abdomen and pelvis slightly limiting evaluat ion for pericolonic fat stranding.
== END | disposition home or self-care (01) ==
LOC: RADCTMAIN 15:48
PROVIDERS: ATTEND Family Medicine
DX: N28.1 Cyst of kidney, acquired (principal); K57.30 Diverticulosis of large intestine without perforation or abscess without bleeding; K44.9 Diaphragmatic hernia without obstruction or gangrene; Z88.5 Allergy status to narcotic agent; Z88.6 Allergy status to analgesic agent
CPT/HCPCS: 82565; 84520; 74177; 36415; Q9967

== ENCOUNTER 2018-08-25 09:03 | Day surgery (SDC) | payer MEDICARE, BC ==
[2018-08-25 09:26] VITALS: TEMP 98.2
[2018-08-25 11:42] VITALS: RESP 16
[2018-08-25 12:07] VITALS: BP 139/74; PULSE 68
--- NOTE | 2018-08-25 13:08 | US ---
EXAMINATION TYPE: US renal cyst aspiration DATE OF EXAM: 08/25/2018 COMPARISON: CT 06/02/2018 HISTORY: Ascites. PROCEDURE: Maximal barrier technique was utilized. The skin overlying a suitable path to the patient's right si ded renal cyst was localized with ultrasound and the right lower quadrant and the overlying skin was prepped and draped. Ultrasound was utilized with sterile technique. Lidocaine was used for local ane sthesia and a skin roberth made with a scalpel. A 6 Luxem[place]ger catheter was advanced under direct ultrasound guidance into the cyst and approximately 2 liters of serous fluid were removed. Catheter was withdr awn and hemostasis achieved. There is no immediate complication; the patient is discharged in stable condition following observation. IMPRESSION: STATUS POST ULTRASOUND GUIDED CYST DRAINAGE FOR PALLIATION OF PATIENT'S RIGHT RENAL CYST . THIS PROCEDURE WAS PERFORMED BY THE UNDERSIGNED.
== END 2018-08-25 12:00 | disposition home or self-care (01) ==
LOC: RADPROMAIN 09:03
PROVIDERS: ATTEND Urology
DX: N28.1 Cyst of kidney, acquired (principal); R18.8 Other ascites
CPT/HCPCS: 50390

== ENCOUNTER → 2018-11-21 | Outpatient (CLI) | payer MEDICARE, BC ==
--- NOTE | 2018-11-23 09:24 | MM ---
Reason for exam: screening (asymptomatic). Last mammogram was performed 1 year and 1 month ago. History: Patient is postmenopausal. Family history of breast cancer in maternal cousin. Took estrogen for 2 years beginning at age 67. Physical Findings: A clinical breast exam by your physician is recommended on an annual basis and results should be correlated with mammographic findings. MG 3D Screening Mammo W/Cad Bilateral CC and MLO view(s) were taken. Prior study comparison: October 27, 2017, bilateral MG 3d screening mammo w/cad. October 25, 2016, bilateral MG 3d diag mammo w/cad SARAH. The breast tissue is heterogeneously dense. This may lower the sensitivity of mammography. No significant changes when compared with prior studies. ASSESSMENT: Benign, BI-RAD 2 RECOMMENDATION: Routine screening mammogram of both breasts in 1 year.
== END | disposition home or self-care (01) ==
LOC: RADMAMWWP 13:24
PROVIDERS: ATTEND Family Medicine
DX: Z12.31 Encounter for screening mammogram for malignant neoplasm of breast (principal)
CPT/HCPCS: 77063; 77067

== ENCOUNTER 2018-12-30 07:47 | Emergency (ER) | payer MEDICARE, BC ==
[2018-12-30 07:51] VITALS: BP 127/75; PULSE 75; RESP 18; TEMP 97.7
[2018-12-30] MEDS ORDERED: Acetaminophen-Codeine 300-30mg TAB PO STA (08:06)
[2018-12-30] MEDS ORDERED: DIAZEPAM 5 MG/ML 2 ML INJ IM ONE (08:06)
--- NOTE | 2018-12-30 08:09 | ED ---
General Adult HPI - General Chief complaint: Back Pain/Injury Stated complaint: fall, back pain Time Seen by Provider: 12/30/18 07:50 Source: patient, RN notes reviewed Mode of arrival: wheelchair Limitations: no limitations - History of Present Illness Initial comments: This is an 83-year-old female presents emergency Department complaining of left-sided back pain. Patient states she slipped and fell last Tuesday after having gone to [employer]. Patient states the pain initially wasn't that bad but over the week the pain persisting has gotten a little worse. Patient denies any central back pain. Patient states it is on the left side just next to the spine. Patient denies any numbness weakness. Patient denies hitting her head or losing conscious. Patient denies any neck pain. Patient denies any chest pain difficulty breathing shortness of breath. Patient denies any extremity pain. Patient denies any problems with incontinence or urinary retention - Related Data Home Medications Medication Instructions Recorded Confirmed Aspirin EC [Ecotrin Low Dose] 81 mg PO DAILY 06/07/16 12/30/18 Calcium Carbonate/Vitamin D3 1 tab PO DAILY 06/07/16 12/30/18 [Caltrate 600 Plus D3 Tablet] Cholecalciferol [Vitamin D3 (25 1,000 unit PO DAILY 06/07/16 12/30/18 Mcg = 1000 Iu)] Ferrous Sulfate [Iron (65 MG 325 mg PO BID 06/07/16 12/30/18 Elemental)] Losartan-Hctz 50-12.5 mg [Hyzaar 1 tab PO DAILY 06/07/16 12/30/18 50-12.5] Nitroglycerin Sl Tabs [Nitrostat] 0.4 mg PO Q5M PRN 06/07/16 12/30/18 Simvastatin [Zocor] 20 mg PO HS 06/07/16 12/30/18 Multivit-Min/FA/Lycopen/Lutein 1 tab PO DAILY 08/17/18 12/30/18 [Centrum Silver Tablet] Previous Rx's Medication Instructions Recorded Cyclobenzaprine [Flexeril] 5 mg PO BID #10 tablet 12/30/18 Ibuprofen [Motrin] 400 mg PO Q6HR #20 tab 12/30/18 Allergies Allergy/AdvReac Type Severity Reaction Status Date / Time morphine Allergy Itching Verified 12/30/18 08:38 Review of Systems ROS Statement: Those systems with pertinent positive or pertinent negative responses have been documented in the HPI. ROS Other: All systems not noted in ROS Statement are negative. Past Medical History Past Medical History: Coronary Artery Disease (CAD), Hyperlipidemia, Hypertension, Osteoarthritis (OA) Additional Past Medical History / Comment(s): right renal cyst History of Any Multi-Drug Resistant Organisms: None Reported Past Surgical History: Appendectomy, Bladder Surgery, Cholecystectomy, Coronary Bypass/CABG, Orthopedic Surgery, Tubal Ligation Additional Past Surgical History / Comment(s): Bilat knee replace, bi lat cataracts, CABG 3 vessel 12 years ago, D and C Past Anesthesia/Blood Transfusion Reactions: No Reported Reaction Additional Past Anesthesia/Blood Transfusion Reaction / Comment(s): but does say that sometimes when they "put me out it is hard to wake up" Past Psychological History: No Psychological Hx Reported Smoking Status: Never smoker Past Alcohol Use History: None Reported Past Drug Use History: None Reported - Past Family History Mother Family Medical History: Coronary Artery Disease (CAD) Father Family Medical History: Coronary Artery Disease (CAD) General Exam - General Exam Comments Initial Comments: GENERAL: Patient is well-developed and well-nourished. Patient is nontoxic and well- hydrated and is in mild distress. ENT: Neck is soft and supple. No significant lymphadenopathy is noted. Oropharynx is clear. Moist mucous membranes. Neck has full range of motion without eliciting any pain. EYES: The sclera were anicteric and conjunctiva were pink and moist. Extraocular movements were intact and pupils were equal round and reactive to light. Eyelids were unremarkable. PULMONARY: Unlabored respirations. Good breath sounds bilaterally. No audible rales rhonchi or wheezing was noted. CARDIOVASCULAR: There is a regular rate and rhythm without any murmurs gallops or rubs. ABDOMEN: Soft and nontender with normal bowel sounds. No palpable organomegaly was noted. There is no palpable pulsatile mass. SKIN: Skin is clear with no lesions or rashes and otherwise unremarkable. NEUROLOGIC: Patient is alert and oriented x3. Cranial nerves II through XII are grossly intact. Motor and sensory are also intact. Normal speech, volume and content. Symmetrical smile. MUSCULOSKELETAL: Normal extremities with adequate strength and full range of motion. Patient has tenderness on the paraspinal region on the left side in the thoracic region as well as a lumbar region. Patient has no spinous process tenderness specifically. LYMPHATICS: No significant lymphadenopathy is noted PSYCHIATRIC: Normal psychiatric evaluation. Limitations: no limitations Course Vital Signs 12/30/18 07:48 Temperature 97.7 F Pulse Rate 75 Respiratory 18 Rate Blood Pressure 127/75 O2 Sat by Pulse 98 Oximetry Medical Decision Making - Medical Decision Making T-spine shows no acute abnormality when compared to old x-rays. Lumbar spine shows no acute abnormalities. I went back in and reevaluate the patient after she received Toradol and Valium she was doing considerably better. Disposition Clinical Impression: Back strain Disposition: HOME SELF-CARE Condition: Good Instructions (If sedation given, give patient instructions): Thoracic Back Str ain (ED) Prescriptions: Cyclobenzaprine [Flexeril] 5 mg PO BID #10 tablet Ibuprofen [Motrin] 400 mg PO Q6HR #20 tab Is patient prescribed a controlled substance at d/c from ED?: No Referrals: Scott Carrillo MD [Primary Care Provider] - 1-2 days Time of Disposition: 09:10
--- NOTE | 2018-12-30 08:54 | XR ---
EXAMINATION TYPE: XR thoracic spine 2V , 3 VIEWS DATE OF EXAM ORDERED: 12/30/2018 HISTORY: Fall . COMPARISON: None. FINDINGS: There has been a midline sternotomy. The most superior sternal suture has fractured. There has been a cholecystectomy. The bones are diffusely osteopenic. There is diffuse hypertrophic spondylosis throughout the spine. T he spine is not seen well in the lateral projection. A wedge compression fracture of one of the mid d orsal vertebra, age not determined. Pedicles are difficult to visualize. Paraspinal soft tissues are normal. IMPRESSION: 1. DIFFUSE OSTEOPENIA. 2. LIMITED VISUALIZATION OF FINE. 3. WEDGE COMPRESSION DEFORMITY OF ONE OF THE MID DORSAL VERTEBRA, AGE NOT DETERMINED. 4. POOR VISUALIZATION OF THE PEDICLES.
--- NOTE | 2018-12-30 08:56 | XR ---
EXAMINATION TYPE: XR lumbar spine 2 or 3V , 3 VIEWS DATE OF EXAM ORDERED: 12/30/2018 HISTORY: Fall . COMPARISON: None. FINDINGS: There is been a previous cholecystectomy. There is diffuse osteopenia throughout the spine likely on the basis of osteoporosis. There is a dege nerative grade 1 bordering on grade 2 spondylolisthesis of L4 on L5. Alignment is otherwise maintaine d. There is a superior endplate infraction of T12, L1 and L2. This hypertrophic spondylosis and spond ylosis deformans throughout the lumbar region. IMPRESSION: 1. DIFFUSE OSTEOPENIA, LIKELY ON THE BASIS OF OSTEOPOROSIS. 2. 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 3. ENDPLATE INFRACTIONS OF T12, L1-L2, AGE NOT DETERMINED. 4. DEGENERATIVE CHANGE.
== END 2018-12-30 09:28 | disposition home or self-care (01) ==
LOC: EC 07:47
DX: S39.012A Strain of muscle, fascia and tendon of lower back, initial encounter (principal); I25.10 Atherosclerotic heart disease of native coronary artery without angina pectoris; I10 Essential (primary) hypertension; E78.5 Hyperlipidemia, unspecified; M19.90 Unspecified osteoarthritis, unspecified site; Z79.82 Long term (current) use of aspirin; Z79.899 Other long term (current) drug therapy; Z88.5 Allergy status to narcotic agent; Z95.1 Presence of aortocoronary bypass graft; Z96.653 Presence of artificial knee joint, bilateral; W01.0XXA Fall on same level from slipping, tripping and stumbling without subsequent striking against object, initial encounter; Y92.22 Religious institution as the place of occurrence of the external cause
CPT/HCPCS: 72070; 72100; 99284; 96372; J3360

== ENCOUNTER → 2020-01-23 | Outpatient (CLI) | payer MEDICARE, BC ==
--- NOTE | 2020-01-23 11:43 | MM ---
Reason for exam: additional evaluation requested from prior study. Last mammogram was performed 1 year and 2 months ago. History: Patient is postmenopausal. Family history of breast cancer in maternal cousin. Took estrogen for 2 years beginning at age 67. Physical Findings: Nurse did not find any significant physical abnormalities on exam. MG 3D Diag Mammo W/Cad SARAH Bilateral CC and MLO view(s) were taken. Prior study comparison: November 21, 2018, bilateral MG 3d screening mammo w/cad. October 27, 2017, bilateral MG 3d screening mammo w/cad. The breast tissue is heterogeneously dense. This may lower the sensitivity of mammography. No significant new findings when compared with previous films. These results were verbally communicated with the patient and result sheet given to the patient on 01/23/20. ASSESSMENT: Benign, BI-RAD 2 RECOMMENDATION: Routine screening mammogram of both breasts in 1 year. Manage patient on a clinical basis.
== END | disposition home or self-care (01) ==
LOC: RADMAMWWP 10:20
PROVIDERS: ATTEND Family Medicine
DX: N64.4 Mastodynia (principal)
CPT/HCPCS: 77066; G0279; 77062

== ENCOUNTER 2020-05-01 13:41 | Inpatient (IN) | payer MEDICARE, BC ==
[2020-05-01] MEDS ORDERED: MORPHINE SULFATE 4 MG/ML SYRINGE IVP STA (13:57)
[2020-05-01] MEDS ORDERED: METOCLOPRAMIDE 5 MG/ML 2 ML VIAL IVP STA (13:57)
--- NOTE | 2020-05-01 14:13 | ED ---
Lower Extremity Injury HPI - General Chief Complaint: Fall Stated Complaint: Poss L Hip Fracture Time Seen by Provider: 05/01/20 13:49 Source: EMS Mode of arrival: EMS Limitations: no limitations - History of Present Illness Initial Comments: Patient is an 84-year-old female presenting to the emergency department via EMS after she had a trip and fall at home. Patient is complaining of left hip pain. Patient states she fell mostly on her left hip and is unable to move. She denies hitting her head, denies neck pain. She denies any other injuries from this fall other than her left hip. She denies any previous surgeries of her hips. Patient denies being on blood thinners. Patient was given 1.25 mg of Versed by the EMS prior to arrival as well as 4 mg of Zofran. Patient initially told EMS that she was ALLERGIC to morphine so they were hesitant to give her anything else for pain. Patient has no further complaints at this time. Upon arrival to the ER, her vital signs are stable. - Related Data Home Medications Medication Instructions Recorded Confirmed Aspirin EC [Ecotrin Low Dose] 81 mg PO DAILY 06/07/16 12/30/18 Calcium Carbonate/Vitamin D3 1 tab PO DAILY 06/07/16 12/30/18 [Caltrate 600 Plus D3 20 Mcg (800 Iu)] Cholecalciferol [Vitamin D3 (25 1,000 unit PO DAILY 06/07/16 12/30/18 Mcg = 1000 Iu)] Ferrous Sulfate [Iron (65 MG 325 mg PO BID 06/07/16 12/30/18 Elemental)] Losartan-Hctz 50-12.5 mg [Hyzaar 1 tab PO DAILY 06/07/16 12/30/18 50-12.5] Nitroglycerin Sl Tabs [Nitrostat] 0.4 mg PO Q5M PRN 06/07/16 12/30/18 Simvastatin [Zocor] 20 mg PO HS 06/07/16 12/30/18 Multivit-Min/FA/Lycopen/Lutein 1 tab PO DAILY 08/17/18 12/30/18 [Centrum Silver Tablet] Previous Rx's Medication Instructions Recorded Cyclobenzaprine [Flexeril] 5 mg PO BID #10 tablet 12/30/18 Ibuprofen [Motrin] 400 mg PO Q6HR #20 tab 12/30/18 Allergies Allergy/AdvReac Type Severity Reaction Status Date / Time morphine Allergy Itching Verified 05/01/20 13:54 Review of Systems ROS Statement: Those systems with pertinent positive or pertinent negative responses have been documented in the HPI. ROS Other: All systems not noted in ROS Statement are negative. Past Medical History Past Medical History: Coronary Artery Disease (CAD), Hyperlipidemia, Hypertension, Osteoarthritis (OA) Additional Past Medical History / Comment(s): right renal cyst History of Any Multi-Drug Resistant Organisms: None Reported Past Surgical History: Appendectomy, Bladder Surgery, Cholecystectomy, Coronary Bypass/CABG, Orthopedic Surgery, Tubal Ligation Additional Past Surgical History / Comment(s): Bilat knee replace, bi lat cataracts, CABG 3 vessel 12 years ago, D and C Past Anesthesia/Blood Transfusion Reactions: No Reported Reaction Additional Past Anesthesia/Blood Transfusion Reaction / Comment(s): but does say that sometimes when they "put me out it is hard to wake up" Past Psychological History: No Psychological Hx Reported Smoking Status: Never smoker Past Alcohol Use History: None Reported Past Drug Use History: None Reported - Past Family History Mother Family Medical History: Coronary Artery Disease (CAD) Father Family Medical History: Coronary Artery Disease (CAD) General Exam - General Exam Comments Initial Comments: GENERAL: Patient is well-developed and well-nourished. Patient is nontoxic and in mild distress, actively dry heaving. HEAD: Atraumatic, normocephalic.there are no hematomas, no signs of cough fracture. EYES: Pupils equal round and reactive to light, extraocular movements intact, sclera anicteric, conjunctiva are normal. Eyelids were unremarkable. ENT: TMs normal, nares patent, oropharynx clear without exudates. Moist mucous membranes. NECK: Normal range of motion, supple without lymphadenopathy or JVD. LUNGS: Unlabored respirations. Breath sounds clear to auscultation bilaterally and equal. No wheezes rales or rhonchi. HEART: Regular rate and rhythm without murmurs, rubs or gallops. ABDOMEN: Soft, nontender, normoactive bowel sounds. No guarding, no rebound. No masses appreciated. : Deferred MUSCULOSKELETAL: She has significant pain of the left hip, unable to active range of motion secondary to pain. She is neurovascular intact. Rest of extremities are normal , no pain. No pitting or edema. No clubbing or cyanosis. NEUROLOGICAL: Patient is alert and oriented x 3. Motor and sensory are also intact. Cranial nerves II through XII grossly intact. Symmetrical smile. Normal speech. PSYCH: Normal mood, normal affect. SKIN: Warm, Dry, normal turgor, no rashes or lesions noted. Limitations: no limitations Course Vital Signs 05/01/20 05/01/20 13:55 15:35 Temperature 98.0 F Pulse Rate 77 81 Respiratory 18 18 Rate Blood Pressure 135/81 107/65 O2 Sat by Pulse 96 93 L Oximetry Medical Decision Making - Medical Decision Making patient is an 84-year-old female presenting via EMS after a trip and fall, injuring her left hip. She was served 1.25 mg of her side and 4 mg of Zofran and the EMS prior to arrival. She stated she was ALLERGIC to morphine so they're hesitant to give her anything else for the pain. She denies hitting her head, no neck pain, no pain anywhere else except for her hip. No previous surgeries of her hip. x-rays reveal a left proximal femoral neck fracture. Patient was given pain control, Reglan, she is still in moderate amount of pain. Patient will be admitted, patient accepted by Dr. Sotelo. We will put Dr. Carrillo on for medical management. patient will be NPO after midnight. Presurgical labs are pending at this time. Case discussed with Dr. Rodriguez. - Lab Data Result diagrams: 05/01/20 15:28 - EKG Data EKG Comments: EKG shows sinus rhythm with first-degree block, right BBB, left anterior fascicular block, this is a change from her previous EKG and 06/07/2016. Ventricular rate 75, AL interval 212, QTC 460. Disposition Clinical Impression: Fall, Fracture of femoral neck, left Disposition: HOME SELF-CARE Condition: Stable Is patient prescribed a controlled substance at d/c from ED?: No Decision Date: 05/01/20 Decision Time: 15:02
[2020-05-01] MEDS ORDERED: NALOXONE 0.4 MG/ML 1 ML VIAL IV PRN (14:57)
[2020-05-01] MEDS ORDERED: ACETAMINOPHEN TAB 325 MG TAB PO PRN (14:57)
[2020-05-01] MEDS ORDERED: ONDANSETRON 4 MG/2 ML VIAL IVP PRN (14:57)
--- NOTE | 2020-05-01 14:57 | XR ---
EXAMINATION TYPE: XR Hip LT and AP Pelvis DATE OF EXAM: 05/01/2020 COMPARISON: None HISTORY: Trip and fall TECHNIQUE: Left hip is examined in 2 projections and supplemented with an AP pelvis. FINDINGS: There is a proximal femoral neck fracture to the left hip. Femoral head articulates with th e acetabulum. Joint space narrowing is present. IMPRESSION: 1. Proximal left femoral neck fracture
--- NOTE | 2020-05-01 15:13 | XR ---
EXAMINATION TYPE: XR chest 1V DATE OF EXAM: 05/01/2020 COMPARISON: 06/07/2016 INDICATION: Hip fracture TECHNIQUE: Single frontal view of the chest is obtained. FINDINGS: The heart size is mildly prominent. The pulmonary vasculature is upper limits for normal. No suspicious focal consolidation is evident. Large air-filled hiatal hernia is evident. IMPRESSION: 1. Cardiomegaly with mild vascular prominence. 2. Large hiatal hernia
[2020-05-01 15:39] LABS: Basophils % (A) 0 %; Eosinophils # (A) 0.1 k/uL (0-0.7); Eosinophils % (A) 0 %; HCT 43.4 % (34.0-46.0); HGB 14.5 gm/dL (11.4-16.0); Lymphocytes # (A) 1.3 k/uL (1.0-4.8); Lymphocytes % (A) 8 %; MCH 30.8 pg (25.0-35.0); MCHC 33.4 g/dL (31.0-37.0); MCV 92.2 fL (80.0-100.0); Monocytes # (A) 0.7 k/uL (0-1.0); Monocytes % (A) 4 %; Neutrophils # (A) 13.9 k/uL (1.3-7.7); Neutrophils % (A) 86 %; Platelet Count 369 k/uL (150-450); RDW 12.9 % (11.5-15.5); WBC 16.2 k/uL (3.8-10.6)
[2020-05-01] MEDS: MORPHINE SULFATE 4 MG/ML SYRINGE IV PRN ×2 (15:45→20:29)
[2020-05-01] MEDS: SODIUM CHLORIDE 0.9% 1,000 ML IV SCH (15:45)
[2020-05-01 15:48] LABS: ALT 29 U/L (4-34); AST 36 U/L (14-36); African American GFR (CKD) >90 (>60 ml/min/1.73 sqM); Albumin 3.6 g/dL (3.5-5.0); Alkaline Phosphatase 69 U/L (38-126); Anion Gap 5 mmol/L; Blood Urea Nitrogen 24 mg/dL (7-17); Calcium 8.9 mg/dL (8.4-10.2); Carbon Dioxide 27 mmol/L (22-30); Chloride 105 mmol/L (98-107); Glucose 111 mg/dL (74-99); Non-African American GFR(CKD) 85 (>60 ml/min/1.73 sqM); Partial Thromboplastin Time 23.2 sec (22.0-30.0); Prothrombin Time 10.3 sec (9.0-12.0); Sodium 137 mmol/L (137-145); Total Bilirubin 0.6 mg/dL (0.2-1.3); Total Protein 6.6 g/dL (6.3-8.2)
[2020-05-02] MEDS: MORPHINE SULFATE 4 MG/ML SYRINGE IV PRN ×3 (02:16→11:46)
[2020-05-02] MEDS: SODIUM CHLORIDE 0.9% 1,000 ML IV SCH ×2 (06:09→22:25)
--- NOTE | 2020-05-02 07:57 | P.HPOR ---
History of Present Illness H&P Date: 05/02/20 Chief Complaint: Left hip pain The patient's a 84-year-old female who is a community ambulator presents after falling injuring her left hip yesterday. 7 unable to really bear weight since the injury. She denies previous pols. Review of Systems Musculoskeletal: left: hip pain Past Medical History Past Medical History: Coronary Artery Disease (CAD), Hyperlipidemia, Hypertension, Osteoarthritis (OA) Additional Past Medical History / Comment(s): right renal cyst; fall at home 04/30/20 History of Any Multi-Drug Resistant Organisms: None Reported Past Surgical History: Appendectomy, Bladder Surgery, Cholecystectomy, Coronary Bypass/CABG, Orthopedic Surgery, Tubal Ligation Additional Past Surgical History / Comment(s): Bilat knee replace, bilat cataracts, CABG 3 vessel 12 years ago, D and C Past Anesthesia/Blood Transfusion Reactions: No Reported Reaction Additional Past Anesthesia/Blood Transfusion Reaction / Comment(s): stares that sometimes when they "put me out it is hard to wake up" Past Psychological History: No Psychological Hx Reported Smoking Status: Never smoker Past Alcohol Use History: None Reported Past Drug Use History: None Reported - Past Family History Mother Family Medical History: Coronary Artery Disease (CAD) Father Family Medical History: Coronary Artery Disease (CAD) Medications and Allergies Home Medications Medication Instructions Recorded Confirmed Type Aspirin EC [Ecotrin Low Dose] 81 mg PO DAILY 06/07/16 05/01/20 History Calcium Carbonate/Vitamin D3 1 tab PO DAILY 06/07/16 05/01/20 History [Caltrate 600 Plus D3 20 Mcg (800 Iu)] Ferrous Sulfate [Iron (65 MG 325 mg PO BID 06/07/16 05/01/20 History Elemental)] Nitroglycerin Sl Tabs [Nitrostat] 0.4 mg PO Q5M PRN 06/07/16 05/01/20 History Simvastatin [Zocor] 20 mg PO HS 06/07/16 05/01/20 History Multivit-Min/FA/Lycopen/Lutein 1 tab PO DAILY 08/17/18 05/01/20 History [Centrum Silver Tablet] Cholecalciferol [Vitamin D3 (25 25 mcg PO DAILY 05/01/20 05/01/20 History Mcg = 1000 Iu)] Furosemide [Lasix] 20 mg PO DIRECTED PRN 05/01/20 05/01/20 History Losartan Potassium 50 mg PO DAILY 05/01/20 05/01/20 History Allergies Allergy/AdvReac Type Severity Reaction Status Date / Time morphine Allergy Itching Verified 05/01/20 16:16 Physical Examination - Fracture left hip Location of fracture: Left femoral neck Appearance: swelling (Minimal) Compartments: soft Distal extremity neurovascularly intact: Yes Proximal joint involvement: No Distal joint involvement: No Results Alert and oriented 4 Nontender over the cervical, thoracic, and lumbar spine/no step-off No point tenderness about the upper extremities /painless passive motion both upper extremities Pelvis stable to external rotation stress Shortening and external rotation left lower extremity/pain with passive motion left hip Painless logroll right hip Nontender both knees ,ankles and feet - Labs Labs: Abnormal Lab Results - Last 24 Hours (Table) 05/01/20 05/01/20 Range/Units 15:28 15:28 WBC 16.2 H (3.8-10.6) k/uL Neutrophils # 13.9 H (1.3-7.7) k/uL BUN 24 H (7-17) mg/dL Glucose 111 H (74-99) mg/dL H & H 05/01/20 Range/Units 15:28 Hgb 14.5 (11.4-16.0) gm/dL Hct 43.4 (34.0-46.0) % Coagulation 05/01/20 Range/Units 15:28 INR 1.0 (<1.2) Result Diagrams: 05/01/20 15:28 05/01/20 15:28 - Diagnostic results Hip x-ray: image reviewed (displaced left subcapital femoral neck fracture) Assessment and Plan Assessment: Displaced left subcapital femoral neck fracture History of heart disease Plan: I talked to the patient length regarding her condition and recommended surgical intervention. We will plan to proceed with left hip hemiarthroplasty this afternoon. We will await medical clearance. Time with Patient: Greater than 30
--- NOTE | 2020-05-02 11:30 | CONS ---
CONSULTATION CHIEF COMPLAINT: Left femur fracture. HISTORY OF PRESENT ILLNESS: This is another admission for this 84-year-old fairly well-preserved white female. She has a history of hypertension, coronary artery disease. She apparently fell at home and was brought to the hospital with a left femur fracture. REVIEW OF SYSTEMS: She has had no syncope, neurologic signs or symptoms, change in vision or hearing, chest pain, palpitations, orthopnea, PND. She has a history of coronary artery disease, but has not had any angina or signs or symptoms decompensation. She has had no abdominal pain, GERD, nausea, vomiting, hematemesis, melena, hematochezia, diarrhea, jaundice, hepatitis, renal failure, hematuria, frequency, urgency, dysuria, incontinence, diabetes, etc. Past medical history, family history and personal and social histories reveal that she is allergic to MORPHINE and NSAIDs. She is currently on: 1. Lasix 20 mg twice a week. 2. Losartan 50 mg once a day. 3. Simvastatin 20 mg at bedtime. 4. BuSpar 5 mg t.i.d. p.r.n. 5. Nitrostat sublingually p.r.n. 6. Aspirin 81 mg. Her past history is unremarkable except for her history of hypertension, coronary artery disease and hyperlipidemia. Surgically she has had tubal ligation, D and C, appendectomy, cholecystectomy, CABG and bilateral knee prostheses. She does not smoke or drink. PHYSICAL EXAMINATION: Blood pressure 132/70 with a pulse of 90, respirations of 35, and she is afebrile. In general, she appeared well developed, well nourished, and well preserved for her age. She is awake and alert. Skin color is normal. Skin is warm, dry. Lymph nodes were not enlarged. Head, ears, eyes, nose, mouth, and throat were normal. Neck veins are not distended. Thyroid is not enlarged. Chest is clear. Cardiac exam demonstrates normal sinus rhythm and no murmurs or extra sounds. Abdomen is soft and nontender without any visceromegaly or masses. Bowel sounds are present. Extremities were normal except for irritability with movement in the left hip. Neurologically, she is intact. She is admitted to the hospital with diagnoses: 1. Left femur fracture. 2. History of hypertension. 3. History of coronary artery disease. PLAN: IV fluids and analgesics, pending surgical intervention. She is cleared for surgery. MMODL / IJN: [id number] /
[2020-05-02] MEDS ORDERED: NITROGLYCERIN SL TABS 0.4 MG TAB SUBLINGUAL PRN (12:59)
[2020-05-02] MEDS ORDERED: IV FLUID CONTINUATION 200 ML IV ONE (15:32)
[2020-05-02] MEDS ORDERED: MIDAZOLAM 2 MG/2 ML VIAL ONE (16:58)
[2020-05-02] MEDS ORDERED: PHENYLEPHRINE-0.9% NACL SYG 1,000 MCG/10 ML SYRINGE ONE (16:58)
[2020-05-02] MEDS ORDERED: KETAMINE 10 MG/ML 20 ML VIAL ONE (16:58)
[2020-05-02] MEDS ORDERED: fentaNYL (PF) 50 MCG/ML 2 ML AMP ONE (16:58)
[2020-05-02] MEDS ORDERED: SODIUM CHLORIDE 0.9% 100 ML with ceFAZolin 2,000 MG IV ONE ×2 (17:10)
[2020-05-02] MEDS ORDERED: LACTATED RINGERS 1,000 ML IV ONE (17:17)
[2020-05-02] MEDS ORDERED: MAGNESIUM HYDROXIDE 2,400 MG/10 ML CUP PO PRN (18:41)
--- NOTE | 2020-05-02 18:46 | P.OP ---
Date of Procedure: 05/02/20 Preoperative Diagnosis: Displaced left subcapital femoral neck fracture Postoperative Diagnosis: Same Procedure(s) Performed: Left hip hemiarthroplastypress-fit Implants: Depuy Corail size 11 standard collared press-fit femoral stem, 46 mm unipolar head, -3 neck. Anesthesia: spinal Surgeon: Joel Zambrano Mend Worker #1: Venkat Avila Estimated Blood Loss (ml): 50 Pathology: other (Femoral head) Condition: stable Disposition: PACU Indications for Procedure: The patient's an 84-year-old female presents after falling injuring her left hip. Upon evaluation she is noted of evidence of a displaced left subcapital femoral neck fracture. A discussion of the risks and benefits of operative intervention was made with the patient and her family. She opted to proceed with surgery. Operative risks to include infection, neurovascular injury, development of blood clots, possible length discrepancy, instability, possible need for subsequent procedures was discussed. Informed consent was obtained. Operative Findings: As below Description of Procedure: The patient was brought to the operating room, and after induction of spinal anesthesia was placed in the lateral decubitus position. Bony prominences were appropriately padded. The pelvis was stabilized perpendicular to the floor with a pegboard. The left lower extremity was prepped and draped in normal fashion. A 12 cm incision was then made centered over the greater trochanter extending superiorly to level ASIS and distally along the femoral shaft. Skin and subcutaneous tissues were divided sharply. Electrocautery was used for hemostasis. The fascia bere and gluteus rosie fascia was split in line with the skin incision. Muscle fibers were bluntly dissected proximally. A self- retaining retractor was placed. The anterior and posterior margins of the gluteus medius muscles identified in the into two thirds detached the greater trochanter with electrocautery. The gluteus minimus tendon was identified and detached in a similar fashion. A T-shaped capsulotomy was performed. The capsular flaps were tagged with #2 Ethibond suture. The femoral neck fracture was then identified. A lower neck cut was made at 45 the shaft with a sagittal saw to help facilitate head extraction. Head was then extracted with a corkscrew. It measured 46 millimeters . The acetabulum was inspected. No significant chondral injury was noted. Attention was then paid towards preparing the proximal femur. A box chisel was used to open the metaphyseal region. A canal finder was used to find the femoral canal. Sequential broaching was performed up to a size 11 broach with the leg perpendicular to the floor in 15 of anteversion. There was good rotational stability. A calcar mill was used to fashion the medial calcar. A -3 neck and 46 mm unipolar head was placed. The hip was gently reduced. It was taken through range of motion and felt to be stable in flexion and extension with internal and external rotation. I felt there was adequate protestant of soft tissue tension. Hip was gently dislocated. The trial components were then removed. Pulsatile lavage was utilized. The final size 11 standard collared femoral stem was inserted again with the leg perpendicular to the floor in 15 of anteversion. This was fully seated. Again there was good rotational stability. A -3 neck and 48 mm unipolar head was gently impacted. Hip was gently reduced. Again it was taken through range of motion felt to be stable in flexion and extension with internal and external rotation. Again I felt there was adequate protestant of soft tissue tension. Pulsatile lavage was again utilized. The capsular layer was closed with interrupted #2 Ethibond suture. The gluteus minimus and medius tendons reattached the greater trochanter with #2 Ethibond suture. The fascia bere and gluteus rosie fascia was closed with running #2 Ethibond suture. There is minimal drainage therefore a deep drain was not placed. The subcutaneous tissues were reapproximated interrupted 2-0 Vicryl sutures. Skin was reapproximated with 3-0 subcuticular strata fix suture. Skin tape and adhesive was applied. A sterile dressing was applied. The patient was then awoken from sedation and transferred to recovery room in fair condition. Blood loss was estimated 50 mL. No complications were incurred. Sponge and needle counts were correct at the end the case. Yair GANDHI assisted during the major components the case to include positioning, exposure, implantation, and closure.
--- NOTE | 2020-05-02 19:36 | PN ---
PROGRESS NOTE DATE OF SERVICE: 05/02/2020 CHIEF COMPLAINT: Fracture of left hip. HISTORY OF PRESENT ILLNESS: This lady is doing fairly well. She has been stable. Vital signs have been stable. She remains awake and alert. PHYSICAL EXAMINATION: Her chest is clear. The cardiac exam is unremarkable. Abdomen is soft and nontender. Pulse are good. IMPRESSION: 1. Fracture of the hip. 2. Hypertension. PLAN: It is planned that she will be going to the operating room today. MMODL / IJN: [id number] /
--- NOTE | 2020-05-02 19:48 | XR ---
EXAMINATION TYPE: XR Hip Limited LT DATE OF EXAM: 05/02/2020 COMPARISON: NONE HISTORY: Pain TECHNIQUE: 4 views FINDINGS: There is left hip prosthesis. Components appear in anatomic position. IMPRESSION: No complicating process.
[2020-05-02] MEDS: SENNOSIDES-DOCUSATE SODIUM 1 EACH TAB PO SCH (22:24)
[2020-05-02] MEDS: HEPARIN SODIUM,PORCINE 5,000 UNIT/ML 1 ML VIAL SQ SCH (22:24)
[2020-05-02] MEDS: HYDROcodone/APAP 5-325MG 1 EACH TAB PO PRN (23:48)
[2020-05-03] MEDS: HEPARIN SODIUM,PORCINE 5,000 UNIT/ML 1 ML VIAL SQ SCH ×2 (09:11→20:11)
[2020-05-03] MEDS: LOSARTAN 50 MG TAB PO SCH (09:11)
[2020-05-03] MEDS: HYDROcodone/APAP 5-325MG 1 EACH TAB PO PRN ×3 (09:12→20:11)
[2020-05-03] MEDS: SODIUM CHLORIDE 0.9% 1,000 ML IV SCH ×2 (09:13→21:29)
--- NOTE | 2020-05-03 11:40 | P.PN ---
Subjective Progress Note Date: 05/03/20 Principal diagnosis: Status post left hip hemiarthroplasty Patient evaluated at bedside, she is resting in her hospital chair. She has some discomfort of the left lower extremity, this is mainly with movement. She did require assistance getting to the chair today. Urinary catheter is still in place. She currently denies any headaches, lightheadedness, chest pain or shortness of breath. Objective - Vital Signs Vital signs: Vital Signs Temp 98.2 F 05/03/20 07:41 Pulse 95 05/03/20 07:41 Resp 19 05/03/20 07:41 BP 116/66 05/03/20 07:41 Pulse Ox 96 05/03/20 07:41 Intake & Output 05/02/20 05/03/20 05/03/20 18:59 06:59 18:59 Intake Total 1125 1400 Output Total 450 400 Balance 675 1000 Weight 81.647 kg 81.647 kg Intake: IV 1125 200 Intake, IV Titration 900 Amount Sodium Chloride 0.9% 1, 900 000 ml @ 75 mls/hr IV . [id number] [facility] Rx#:[id number] Oral 300 Output: Urine 400 400 Estimated Blood Loss 50 Other: Voiding Method Indwelling Catheter Indwelling Catheter # Bowel Movements 1 - Exam Left lower extremity: Incision is clean, dry and intact. Tape over the incision is in good position and condition. Minimal soft tissue swelling present. Remaining compartments the leg are soft. Calf is soft, no tenderness with palpation. Plantar flexion, dorsiflexion, EHL, FHL are intact. Dorsalis pedis pulses 2+ - Labs CBC & Chem 7: 05/01/20 15:28 05/01/20 15:28 Assessment and Plan Assessment: Status post left hip hemiarthroplasty Plan: Pain control, continue current medication DVT prophylaxis, continue subcu medication Continue weight-bear as tolerated, recommend walker at all times Continue work with physical therapy Other medical assistant prn and recommendations Discussed with the patient possibility of going home. Patient does live with her daughter. She is interested in possibly getting a hospital bed for discharge. We will see how the patient does over the next few days with ADLs, she may be a better candidate for subacute rehab. Social work and case management in the coming days. We will continue to follow during inpatient stay Time with Patient: Less than 30
[2020-05-03 11:45] LABS: Basophils # (A) 0.03 X 10*3/uL (0.00-0.10); Basophils % (A) 0.2 %; Eosinophils # (A) 0.16 X 10*3/uL (0.04-0.35); Eosinophils % (A) 1.2 %; HCT 37.7 % (37.2-46.3); Lymphocytes # (A) 0.74 X 10*3/uL (0.90-5.00); Lymphocytes % (A) 5.4 %; MCH 30.2 pg (27.0-32.0); MCHC 31.8 g/dL (32.0-37.0); MCV 94.7 fL (80.0-97.0); Mean Platelet Volume 11.2 fL (9.5-12.2); Monocytes # (A) 1.39 X 10*3/uL (0.20-1.00); Monocytes % (A) 10.2 %; Neutrophils # (A) 11.22 X 10*3/uL (1.80-7.70); Neutrophils % (A) 82.6 %; Platelet Count 313 X 10*3/uL (140-440); RBC 3.98 X 10*6/uL (4.10-5.20); RDW 13.5 % (11.5-14.5)
--- NOTE | 2020-05-03 18:18 | PN ---
PROGRESS NOTE CHIEF COMPLAINT: Status post left hip fracture. HISTORY OF PRESENT ILLNESS: This lady is doing fairly well. She is awake and alert. She is somewhat frustrated and slightly depressed. Left hip hemiarthroplasty went well. PHYSICAL EXAMINATION: She is afebrile. Chest is clear. Cardiac exam reveals her murmur. Abdomen is soft, nontender. IMPRESSION: 1. Status post left hip hemiarthroplasty. 2. Coronary artery disease. 3. Hypertension. PLAN: No change in her management and she is doing well. MMODL / IJN: [id number] /
[2020-05-03] MEDS: SENNOSIDES-DOCUSATE SODIUM 1 EACH TAB PO SCH (20:11)
[2020-05-04] MEDS: HYDROcodone/APAP 5-325MG 1 EACH TAB PO PRN ×3 (05:25→19:04)
[2020-05-04] MEDS: HEPARIN SODIUM,PORCINE 5,000 UNIT/ML 1 ML VIAL SQ SCH ×2 (08:11→19:04)
[2020-05-04] MEDS: LOSARTAN 50 MG TAB PO SCH (08:12)
--- NOTE | 2020-05-04 10:35 | P.PN ---
Subjective Progress Note Date: 05/04/20 Principal diagnosis: Status post left hip hemiarthroplasty Patient evaluated at bedside, she is resting in her hospital bed. She has some discomfort of the left lower extremity, this is mainly with movement. She currently denies any headaches, lightheadedness, chest pain or shortness of breath. Objective - Vital Signs Vital signs: Vital Signs Temp 98 F 05/04/20 07:53 Pulse 80 05/04/20 07:53 Resp 18 05/04/20 07:53 BP 112/65 05/04/20 07:53 Pulse Ox 96 05/04/20 07:53 Intake & Output 05/03/20 05/04/20 05/04/20 18:59 06:59 18:59 Intake Total 1340 200 Output Total 400 300 Balance 940 -100 Intake: Intake, IV Titration 800 Amount Sodium Chloride 0.9% 1, 750 000 ml @ 75 mls/hr IV . [id number] [facility] Rx#:[id number] ceFAZolin 2 gm In Sodium 50 Chloride 0.9% 50 ml @ 100 mls/hr IVPB Q8HR [facility] Rx# :[id number] Oral 540 200 Output: Urine 400 300 Other: Voiding Method Indwelling Catheter Indwelling Catheter Indwelling Catheter # Voids 2 # Bowel Movements 1 - Exam Left lower extremity: Incision is clean, dry and intact. Tape over the incision is in good position and condition. Minimal soft tissue swelling present. Remaining compartments the leg are soft. Calf is soft, no tenderness with palpation. Plantar flexion, dorsiflexion, EHL, FHL are intact. Dorsalis pedis pulses 2+ - Labs CBC & Chem 7: 05/03/20 06:36 05/01/20 15:28 Labs: Abnormal Lab Results - Last 24 Hours (Table) 05/03/20 Range/Units 06:36 WBC 13.60 H (4.50-10.00) X 10*3/uL RBC 3.98 L (4.10-5.20) X 10*6/uL MCHC 31.8 L (32.0-37.0) g/dL Immature Gran # 0.06 H (0.00-0.04) X 10*3/uL Neutrophils # 11.22 H (1.80-7.70) X 10*3/uL Lymphocytes # 0.74 L (0.90-5.00) X 10*3/uL Monocytes # 1.39 H (0.20-1.00) X 10*3/uL Assessment and Plan Assessment: Status post left hip hemiarthroplasty Plan: Pain control, continue current medication DVT prophylaxis, continue subcu medication Continue weight-bear as tolerated, recommend walker at all times Continue work with physical therapy Other emergency medical technician basic and recommendations We will continue to follow during inpatient stay Time with Patient: Less than 30
[2020-05-04] MEDS: SODIUM CHLORIDE 0.9% 1,000 ML IV SCH ×2 (14:35→21:47)
[2020-05-04] MEDS: SENNOSIDES-DOCUSATE SODIUM 1 EACH TAB PO SCH (19:04)
[2020-05-05] MEDS: LOSARTAN 50 MG TAB PO SCH (08:48)
[2020-05-05] MEDS: HEPARIN SODIUM,PORCINE 5,000 UNIT/ML 1 ML VIAL SQ SCH (08:48)
[2020-05-05] MEDS: HYDROcodone/APAP 5-325MG 1 EACH TAB PO PRN (08:56)
[2020-05-05 09:03] LABS: Basophils # (A) 0.03 X 10*3/uL (0.00-0.10); Basophils % (A) 0.3 %; Eosinophils # (A) 0.25 X 10*3/uL (0.04-0.35); Eosinophils % (A) 2.4 %; HCT 34.9 % (37.2-46.3); HGB 11.1 g/dL (12.0-15.0); Lymphocytes # (A) 0.84 X 10*3/uL (0.90-5.00); MCHC 31.8 g/dL (32.0-37.0); MCV 94.3 fL (80.0-97.0); Monocytes # (A) 1.22 X 10*3/uL (0.20-1.00); Monocytes % (A) 11.6 %; Neutrophils # (A) 8.13 X 10*3/uL (1.80-7.70); Neutrophils % (A) 77.3 %; Platelet Count 319 X 10*3/uL (140-440); RDW 13.4 % (11.5-14.5); WBC 10.51 X 10*3/uL (4.50-10.00)
--- NOTE | 2020-05-05 11:11 | PN ---
PROGRESS NOTE DATE OF SERVICE: 05/04/2020 CHIEF COMPLAINT: Status post left hip fracture repair. HISTORY OF PRESENT ILLNESS: This lady is doing well. She has not had any fever, chills, chest pain, shortness of breath, etc. She is stating that she is coughing up some "brown" sputum. PHYSICAL EXAMINATION: Chest is clear. Cardiac exam is unchanged. Abdomen is soft and nontender. IMPRESSION: 1. Status post left hip hemiarthroplasty for fracture. 2. History of coronary artery disease. 3. History of hypertension. PLAN: Increase activity and probably she will be able to leave the hospital tomorrow. MMODL / IJN: [id number] /
--- NOTE | 2020-05-05 13:09 | P.PN ---
Subjective Progress Note Date: 05/05/20 Principal diagnosis: Status post left hip hemiarthroplasty Patient evaluated at bedside, she is resting in her hospital chair. She currently denies any headaches, lightheadedness, chest pain or shortness of breath. Objective - Vital Signs Vital signs: Vital Signs Temp 98.2 F 05/05/20 07:05 Pulse 79 05/05/20 07:05 Resp 16 05/05/20 07:05 BP 116/66 05/05/20 07:05 Pulse Ox 97 05/05/20 07:05 Intake & Output 05/04/20 05/05/20 05/05/20 18:59 06:59 18:59 Intake Total 600 Output Total 350 250 400 Balance 250 -250 -400 Intake: Intake, IV Titration 600 Amount Sodium Chloride 0.9% 1, 600 000 ml @ 75 mls/hr IV . [id number] [facility] Rx#:[id number] Output: Urine 350 250 400 Uretheral (Gomez) 400 Other: Voiding Method Indwelling Catheter Indwelling Catheter Indwelling Catheter # Bowel Movements 1 1 - Exam Left lower extremity: Incision is clean, dry and intact. Tape over the incision is in good position and condition. Minimal soft tissue swelling present. Remaining compartments the leg are soft. Calf is soft, no tenderness with palpation. Plantar flexion, dorsiflexion, EHL, FHL are intact. Dorsalis pedis pulses 2+ - Labs CBC & Chem 7: 05/05/20 05:42 05/01/20 15:28 Labs: Abnormal Lab Results - Last 24 Hours (Table) 05/05/20 Range/Units 05:42 WBC 10.51 H (4.50-10.00) X 10*3/uL RBC 3.70 L (4.10-5.20) X 10*6/uL Hgb 11.1 L (12.0-15.0) g/dL Hct 34.9 L (37.2-46.3) % MCHC 31.8 L (32.0-37.0) g/dL Neutrophils # 8.13 H (1.80-7.70) X 10*3/uL Lymphocytes # 0.84 L (0.90-5.00) X 10*3/uL Monocytes # 1.22 H (0.20-1.00) X 10*3/uL Assessment and Plan Assessment: Status post left hip hemiarthroplasty Plan: Pain control, continue current medication DVT prophylaxis, plan for discharge on heparin 5000 units every 12 hours Continue weight-bear as tolerated, recommend walker at all times Continue work with physical therapy Other biomedical engineering internship and recommendations Plan for discharge to rehab today Time with Patient: Less than 30
--- NOTE | 2020-05-05 15:13 | P.DS ---
Providers Date of admission: 05/01/20 15:22 Expected date of discharge: 05/05/20 Attending physician: Joel Zambrano Consults: 05/01/20 14:57 Consult Physician Urgent Consulting Provider: Scott Carrillo Consult Reason/Comments: medical management Do you want consulting provider notified?: Yes Primary care physician: Scott Carrillo Hospital Course: Date of admission: 05/01/2020 Date of discharge: 05/05/2020 Admission diagnosis: Left hip femoral neck fracture Discharge diagnosis: Status post left hip hemiarthroplasty Attending physician: Dr. Zambrano Surgical procedures: left hip hemiarthroplasty Brief history: Patient is 84-year-old female who presented to [facility] on 05/01/2020 after sustaining a fall at home injuring her left lower extremity. It was determined she had a displaced left subcapital femur fracture. She was admitted under orthopedic care with plan for surgical intervention. Surgery was scheduled for 05/02/2020. Hospital course: Details of patient's surgery can be found in operative report. Patient tolerated the procedure well and was subsequently transported to orthopedic floor. Patient's orthopeidc and medical care was provided daily. Patient had daily laboratory tests performed for evaluation of overall blood counts. Patient had daily physical therapy to include strengthening range of motion as well as education with walker ambulation. Patient was treated with Lovenox for their postoperative DVT prophylaxis during their inpatient stay. Patient was noted to have a relatively uneventful postoperative course. Patient reported satisfactory pain control with oral pain medications by postoperative day 0. Patient showed satisfactory progress with physical therapy. Patient moved steadily through the program and had no difficulty meeting the goals by postoperative day 3. Given patient's otherwise satisfactory course and having met physical therapy goals, plan is to discharge patient rehab on postoperative day 3. Discharge condition/disposition: Patient will be discharged in rehab stable condition. Discharge medications: Instructions are given on resumption of patient's normal daily medications per primary care recommendation, in addition patient will be prescribed tramadol 50 mg, aspirin 81 mg, Colace 100 mg. Discharge instructions: 1. Wound care and infection precautions, keep incision dry and covered while showering, no lotions, creams, moisturizers. No soaking, tubs, pools, hottubs. Do not scrub over the incision. 2. Weight-bear as tolerated with walker / cane until follow-up. 3. Ice and elevate when necessary. Do not exceed 20 minutes per hour with ice pack. 4. Utilize compression sleeve until seen at first follow up appointment. 5. Visiting nursing care. 6. Home physical therapy 7. Pain meds and anticoagulants per prescription. 8. Pain medication has potential to cause constipation. Increase oral fluid and fiber intake. Contact primary care provider if you have not had a bowel movement within 48 hours after discharge 9. No anti-inflammatory medication until discussed at first post operative visit, this including Motrin, Aleve, Mobic, Diclofenac 10. Follow up in office at 2 weeks postop with Yair Avila PA-C 11. Follow up with your primary care doctor 7-10 days after discharge. 12. Contact [facility] with any questions, . Procedures: left hip hemiarthroplasty Patient Condition at Discharge: Good Plan - Discharge Summary Discharge Rx Participant: Yes New Discharge Prescriptions: New Aspirin [Adult Low Dose Aspirin EC] 81 mg PO BID #60 tablet. Docusate [Colace] 100 mg PO DAILY #30 capsule traMADol HCl [Ultram] 50 mg PO Q6H PRN #28 tab PRN Reason: Pain No Action Ferrous Sulfate [Iron (65 MG Elemental)] 325 mg PO BID Nitroglycerin Sl Tabs [Nitrostat] 0.4 mg PO Q5M PRN PRN Reason: Chest Pain Calcium Carbonate/Vitamin D3 [Caltrate 600 Plus D3 20 Mcg (800 Iu)] 1 tab PO DAILY Aspirin EC [Ecotrin Low Dose] 81 mg PO DAILY Simvastatin [Zocor] 20 mg PO HS Multivit-Min/FA/Lycopen/Lutein [Centrum Silver Tablet] 1 tab PO DAILY Losartan Potassium 50 mg PO DAILY Cholecalciferol [Vitamin D3 (25 Mcg = 1000 Iu)] 25 mcg PO DAILY Furosemide [Lasix] 20 mg PO DIRECTED PRN PRN Reason: Edema Discharge Medication List Aspirin EC [Ecotrin Low Dose] 81 mg PO DAILY 06/07/16 [History] Calcium Carbonate/Vitamin D3 [Caltrate 600 Plus D3 20 Mcg (800 Iu)] 1 tab PO DAILY 06/07/16 [History] Ferrous Sulfate [Iron (65 MG Elemental)] 325 mg PO BID 06/07/16 [History] Nitroglycerin Sl Tabs [Nitrostat] 0.4 mg PO Q5M PRN 06/07/16 [History] Simvastatin [Zocor] 20 mg PO HS 06/07/16 [History] Multivit-Min/FA/Lycopen/Lutein [Centrum Silver Tablet] 1 tab PO DAILY 08/17/18 [History] Cholecalciferol [Vitamin D3 (25 Mcg = 1000 Iu)] 25 mcg PO DAILY 05/01/20 [History] Furosemide [Lasix] 20 mg PO DIRECTED PRN 05/01/20 [History] Losartan Potassium 50 mg PO DAILY 05/01/20 [History] Aspirin [Adult Low Dose Aspirin EC] 81 mg PO BID #60 tablet. 05/05/20 [Rx] Docusate [Colace] 100 mg PO DAILY #30 capsule 05/05/20 [Rx] traMADol HCl [Ultram] 50 mg PO Q6H PRN #28 tab 05/05/20 [Rx] Follow up Appointment(s)/Referral(s): Scott Carrillo MD [Primary Care Provider] - 1-2 days Venkat Avila PAC [PHYSICIAN CODE ENFORCEMENT INSPECTOR] - 2 Weeks Activity/Diet/Wound Care/Special Instructions: Orthopedic Discharge Instructions: 1. Wound care and infection precautions, keep incision dry and covered while showering, no lotions, creams, moisturizers. No soaking, pools, hot tubs. Do not scrub over incision. 2. Weight-bear as tolerated with walker / cane until follow-up. 3. Ice and elevate when necessary. Do not exceed 20 minutes per hour with ice pack. 4. Utilize compression sleeve until seen at first follow up appointment. 5. Pain meds and anticoagulants per prescription. 6. Pain medication has potential to cause constipation. Increase oral fluid and fiber intake. Contact primary care provider if you have not had a bowel movement within 48 hours after discharge. 7. No anti-inflammatory medication until discussed at first post operative visit, this including Motrin, Aleve, Mobic, Diclofenac. 8. Follow up in office at 2 weeks postop with Yair Avila PA-C 9. Follow up with your primary care doctor 7-10 days after discharge. 10. Contact [facility] with any questions, . Discharge Disposition: TRANSFER TO SNF/ECF
[2020-05-05 15:22] VITALS: BP 121/66; PULSE 87; RESP 18; TEMP 97.6
--- NOTE | 2020-05-05 22:43 | PN ---
PROGRESS NOTE DATE OF SERVICE: 05/04/2020 CHIEF COMPLAINT: Status post fractured hip repair. HISTORY OF PRESENT ILLNESS: This lady is doing fairly well. She is still somewhat discouraged, but she is moving about and pain is under fairly good control. PHYSICAL EXAMINATION: She is afebrile. Breath sounds are clear on both sides. Cardiac exam is normal. Abdomen is soft and dressing is dry. IMPRESSION: 1. Fracture of the left hip. 2. Hypertension. 3. Coronary artery disease. PLAN: I expect that she will probably be able to be discharged tomorrow either to rehab or home. MMODL / IJN: [id number] /
--- NOTE | 2020-05-05 22:43 | PN ---
PROGRESS NOTE DATE OF SERVICE: 05/05/2020 CHIEF COMPLAINT: Status post fracture of the left hip. HISTORY OF PRESENT ILLNESS: This lady is doing well and may be discharged to rehab today. PHYSICAL EXAMINATION: She is afebrile. Chest is clear. Cardiac exam is normal. Abdomen is soft and nontender. IMPRESSION: Fracture of left hip, status post left hip arthroplasty. PLAN: Probably discharge to rehab today. MMODL / IJN: [id number] /
== END 2020-05-05 16:31 | DRG 522 ==
LOC: EC 13:41 → 4SSUR 15:22
PROVIDERS: ADMIT Orthopaedic Surgery; ATTEND Orthopaedic Surgery
PROC: 0SRS0JA Replacement of Left Hip Joint, Femoral Surface with Synthetic Substitute, Uncemented, Open Approach (ICD-10-PCS; principal; 2020-05-02 07:30)
DX: S72.012A Unspecified intracapsular fracture of left femur, initial encounter for closed fracture (principal); I25.10 Atherosclerotic heart disease of native coronary artery without angina pectoris; E78.5 Hyperlipidemia, unspecified; I10 Essential (primary) hypertension; W01.0XXA Fall on same level from slipping, tripping and stumbling without subsequent striking against object, initial encounter; Z20.828 Contact with and (suspected) exposure to other viral communicable diseases; M19.90 Unspecified osteoarthritis, unspecified site; Y92.009 Unspecified place in unspecified non-institutional (private) residence as the place of occurrence of the external cause; Z79.82 Long term (current) use of aspirin; Z82.49 Family history of ischemic heart disease and other diseases of the circulatory system; Z88.5 Allergy status to narcotic agent; Z95.1 Presence of aortocoronary bypass graft; Z90.49 Acquired absence of other specified parts of digestive tract; Z98.42 Cataract extraction status, left eye; Z98.41 Cataract extraction status, right eye
CPT/HCPCS: 51702; 71045; 73501; 73502; 80053; 85025; 85610; 85730; 86850; 86900; 86901; 87635; 88305; 88311; 93005; 94760; 96374; 96375; 96376; 99285

== ENCOUNTER 2020-08-22 14:25 | Emergency (ER) | payer MEDICARE, BC ==
[2020-08-22 14:29] VITALS: PULSE 71; RESP 18
[2020-08-22 15:09] LABS: Appearance,Urine Clear (Clear); Bacteria,Urine Few /hpf; Bilirubin,Urine Negative (Negative); Blood,Urine Negative (Negative); Color,Urine Yellow; Glucose,Urine (UA) Negative (Negative); Hyaline Casts,Urine 1 /lpf (0-2); Ketones,Urine Negative (Negative); Leukocyte Esterase,Urine Large (Negative); Mucus,Urine Rare /hpf; Nitrite,Urine Negative (Negative); PH, Urine 5.5 (5.0-8.0); Protein,Urine Negative (Negative); RBC,Urine 2 /hpf (0-5); Specific Gravity,Urine 1.019 (1.001-1.035); Squamous Epithelial Cell,Urine 2 /hpf (0-4); WBC,Urine 83 /hpf (0-5)
[2020-08-22] MEDS ORDERED: LIDOCAINE 5% PATCH TOPICAL STA (15:15)
--- NOTE | 2020-08-22 15:17 | ED ---
General Adult HPI - General Chief complaint: Back Pain/Injury Stated complaint: Back pain,sent by pcp Time Seen by Provider: 08/22/20 14:56 Source: patient Mode of arrival: wheelchair Limitations: no limitations - History of Present Illness Initial comments: Dictation was produced using [employer] dictation software. please excuse any grammatical, word or spelling errors. Chief Complaint: 85-year-old female presents to the emergency department for rule out UTI History of Present Illness: Patient is a 85-year-old female she had an james ointment with her orthopedic surgeon today for follow-up of left total hip orthopedic surgery. She notified her orthopedic doctor that she was having some right lower back pain. She was instructed by her orthopedic doctor who was concerned about urinary tract infection. He instructed her to come to the emergency department to be evaluated. Patient states her symptoms have been ongoing for the last 4 days. She denies any trauma to the area. States that it began on spontaneously. She does not have any symptoms when she is lying still. Symptoms are worse when she moves. She is able ambulate though with some antalgia. Denies any numbness and paresthesias to the legs. No saddle anesthe luis. Not incontinent to urine. She denies any urinary symptoms. No suprapubic pain. The ROS documented in this emergency department record has been reviewed and confirmed by me. Those systems with pertinent positive or negative responses have been documented in the HPI. All other systems are other negative and/or noncontributory. PHYSICAL EXAM: General Impression: Alert and oriented x3, not in acute distress HEENT: Normocephalic atraumatic, extra-ocular movements intact, pupils equal and reactive to light bilaterally, mucous membranes moist. Cardiovascular: Heart regular rate and rhythm Chest: Able to complete full sentences, no retractions, no tachypnea Abdomen: abdomen soft, non-tender, non-distended, no organomegaly Musculoskeletal: Pulses present and equal in all extremities, no peripheral edema, tenderness to palpation over the right lumbar paraspinal muscular tissue. Motor: no focal deficits noted Neurological: CN II-XII grossly intact, no focal motor or sensory deficits noted Skin: Intact with no visualized rashes Psych: Normal affect and mood ED course: 85-year-old female presents to the emergency department for lower back pain. Vital signs upon arrival are within acceptable limits. CBC, metabolic panel unremarkable. Urinalysis shows 83 white blood cells conc erning for urinary tract infection. There does appear to be compression fractures of T11 and T12 of uncertain age or etiology. Patient does not have pain in that area. Patient reevaluated at bedside. Patient's clinical presentation likely secondary to back strain. She has reproducible tenderness with palpation to the area. Denies any urinary symptoms. Patient is agreeable with discharge. She is given prescription for Lidoderm patches, by mouth analgesia and antibiotics to treat UTI. - Related Data Home Medications Medication Instructions Recorded Confirmed Calcium Carbonate/Vitamin D3 1 tab PO DAILY 06/07/16 08/22/20 [Caltrate 600 Plus D3 20 Mcg (800 Iu)] Ferrous Sulfate [Iron (65 MG 325 mg PO BID 06/07/16 08/22/20 Elemental)] Nitroglycerin Sl Tabs [Nitrostat] 0.4 mg PO Q5M PRN 06/07/16 08/22/20 Simvastatin [Zocor] 20 mg PO HS 06/07/16 08/22/20 Multivit-Min/FA/Lycopen/Lutein 1 tab PO DAILY 08/17/18 08/22/20 [Centrum Silver Tablet] Cholecalciferol [Vitamin D3 (25 25 mcg PO DAILY 05/01/20 08/22/20 Mcg = 1000 Iu)] Losartan Potassium 50 mg PO DAILY 05/01/20 08/22/20 Naproxen Sodium [Aleve] 220 mg PO BID PRN 08/22/20 08/22/20 Previous Rx's Medication Instructions Recorded Cephalexin [Keflex] 500 mg PO Q6HR 7 Days #28 cap 08/22/20 HYDROcodone/APAP 5-325MG [Sharon 1 tab PO Q6HR PRN 3 Days #12 tab 08/22/20 5-325] Lidocaine 5% Patch [Lidoderm] 1 patch TOPICAL DAILY PRN 5 Days 08/22/20 #5 patch Allergies Allergy/AdvReac Type Severity Reaction Status Date / Time morphine Allergy Itching Verified 08/22/20 16:24 Review of Systems ROS Statement: Those systems with pertinent positive or pertinent negative responses have been documented in the HPI. ROS Other: All systems not noted in ROS Statement are negative. Past Medical History Past Medical History: Coronary Artery Disease (CAD), Hyperlipidemia, Hype rtension, Osteoarthritis (OA) Additional Past Medical History / Comment(s): right renal cyst; fall at home 04/30/20 History of Any Multi-Drug Resistant Organisms: None Reported Past Surgical History: Appendectomy, Bladder Surgery, Cholecystectomy, Coronary Bypass/CABG, Orthopedic Surgery, Tubal Ligation Additional Past Surgical History / Comment(s): Bilat knee replace, bilat cataracts, CABG 3 vessel 12 years ago, D and C Past Anesthesia/Blood Transfusion Reactions: No Reported Reaction Additional Past Anesthesia/Blood Transfusion Reaction / Comment(s): stares that sometimes when they "put me out it is hard to wake up" Past Psychological History: No Psychological Hx Reported Smoking Status: Never smoker Past Alcohol Use History: None Reported Past Drug Use History: None Reported - Past Family History Mother Family Medical History: Coronary Artery Disease (CAD) Father Family Medical History: Coronary Artery Disease (CAD) General Exam Limitations: no limitations Course Vital Signs 08/22/20 14:26 Temperature 98.0 F Pulse Rate 71 Respiratory 18 Rate Blood Pressure 154/73 O2 Sat by Pulse 98 Oximetry Medical Decision Making - Lab Data Result diagrams: 08/22/20 15:46 08/22/20 15:46 Lab Results 08/22/20 08/22/20 08/22/20 Range/Units 14:58 15:46 15:46 WBC 9.7 (3.8-10.6) k/uL RBC 4.74 (3.80-5.40) m/uL Hgb 14.1 (11.4-16.0) gm/dL Hct 42.3 (34.0-46.0) % MCV 89.2 (80.0-100.0) fL MCH 29.7 (25.0-35.0) pg MCHC 33.3 (31.0-37.0) g/dL RDW 13.8 (11.5-15.5) % Plt Count 360 (150-450) k/uL MPV 7.5 Neutrophils % 77 % Lymphocytes % 13 % Monocytes % 7 % Eosinophils % 2 % Basophils % 0 % Neutrophils # 7.5 (1.3-7.7) k/uL Lymphocytes # 1.3 (1.0-4.8) k/uL Monocytes # 0.6 (0-1.0) k/uL Eosinophils # 0.1 (0-0.7) k/uL Basophils # 0.0 (0-0.2) k/uL Sodium 138 (137-145) mmol/L Potassium 3.9 (3.5-5.1) mmol/L Chloride 104 (98-107) mmol/L Carbon Dioxide 27 (22-30) mmol/L Anion Gap 7 mmol/L BUN 19 H (7-17) mg/dL Creatinine 0.44 L (0.52-1.04) mg/dL Est GFR (CKD-EPI)AfAm >90 (>60 ml/min/1.73 sqM) Est GFR (CKD-EPI)NonAf >90 (>60 ml/min/1.73 sqM) Glucose 94 (74-99) mg/dL Calcium 9.1 (8.4-10.2) mg/dL Urine Color Yellow Urine Appearance Clear (Clear) Urine pH 5.5 (5.0-8.0) Ur Specific [place] 1.019 (1.001-1.035) Urine Protein Negative (Negative) Urine Glucose (UA) Negative (Negative) Urine Ketones Negative (Negative) Urine Blood Negative (Negative) Urine Nitrite Negative (Negative) Urine Bilirubin Negative (Negative) Urine Urobilinogen 2.0 (<2.0) mg/dL Ur Leukocyte Esterase Large H (Negative) Urine RBC 2 (0-5) /hpf Urine WBC 83 H (0-5) /hpf Ur Squamous Epith Cells 2 (0-4) /hpf Urine Bacteria Few H (None) /hpf Hyaline Casts 1 (0-2) /lpf Urine Mucus Rare H (None) /hpf Disposition Clinical Impression: UTI (urinary tract infection), Back strain Disposition: HOME SELF-CARE Condition: Fair Instructions (If sedation given, give patient instructions): Acute Low Back Pain (ED) Prescriptions: Cephalexin [Keflex] 500 mg PO Q6HR 7 Days #28 cap Lidocaine 5% Patch [Lidoderm] 1 patch TOPICAL DAILY PRN 5 Days #5 patch PRN Reason: Pain HYDROcodone/APAP 5-325MG [[place] 5-325] 1 tab PO Q6HR PRN 3 Days #12 tab PRN Reason: Severe Pain Is patient prescribed a controlled substance at d/c from ED?: Yes If prescribed controlled substance>3 days was MAPS reviewed?: Prescribed <3 Days Referrals: Scott Carrillo MD [Primary Care Provider] - 1-2 days Time of Disposition: 16:53
[2020-08-22 16:09] LABS: Basophils % (A) 0 %; Eosinophils # (A) 0.1 k/uL (0-0.7); Eosinophils % (A) 2 %; HCT 42.3 % (34.0-46.0); HGB 14.1 gm/dL (11.4-16.0); Lymphocytes # (A) 1.3 k/uL (1.0-4.8); Lymphocytes % (A) 13 %; MCH 29.7 pg (25.0-35.0); MCHC 33.3 g/dL (31.0-37.0); MCV 89.2 fL (80.0-100.0); Mean Platelet Volume 7.5; Monocytes # (A) 0.6 k/uL (0-1.0); Monocytes % (A) 7 %; Neutrophils # (A) 7.5 k/uL (1.3-7.7); Neutrophils % (A) 77 %; Platelet Count 360 k/uL (150-450); RBC 4.74 m/uL (3.80-5.40); RDW 13.8 % (11.5-15.5); WBC 9.7 k/uL (3.8-10.6)
[2020-08-22 16:17] LABS: African American GFR (CKD) >90 (>60 ml/min/1.73 sqM); Anion Gap 7 mmol/L; Blood Urea Nitrogen 19 mg/dL (7-17); Calcium 9.1 mg/dL (8.4-10.2); Carbon Dioxide 27 mmol/L (22-30); Chloride 104 mmol/L (98-107); Glucose 94 mg/dL (74-99); Non-African American GFR(CKD) >90 (>60 ml/min/1.73 sqM); Potassium 3.9 mmol/L (3.5-5.1); Sodium 138 mmol/L (137-145)
--- NOTE | 2020-08-22 16:25 | XR ---
EXAMINATION TYPE: XR pelvis AP view DATE OF EXAM: 08/22/2020 CLINICAL HISTORY: pain TECHNIQUE: Single view the pelvis is submitted. FINDINGS: No evidence for fracture, dislocation or bony lesion. Left hip prosthesis in place. Degene rative joint space narrowing. SI joints appear symmetric. IMPRESSION: 1. No acute fracture or dislocation seen. ICD 10 NO FRACTURE, INITIAL EVALUATION
--- NOTE | 2020-08-22 16:28 | XR ---
EXAMINATION TYPE: XR lumbar spine 2 or 3V DATE OF EXAM: 08/22/2020 CLINICAL HISTORY: pain TECHNIQUE: Three views of the lumbar spine are submitted. COMPARISON: None. FINDINGS: Compression fractures of T11 and T12. Moderate degenerative narrowing throughout. Grade 1 anterolisth esis L4 and L5. IMPRESSION: Compression fractures of T11 and T12 of uncertain age and/or etiology. Multilevel degenerative change s.
[2020-08-22 16:52] VITALS: BP 121/73; TEMP 98.3
[2020-08-22] MEDS ORDERED: cefTRIAXone IN SWFI 1,000 MG/10 ML SYRINGE IVP STA (16:53)
--- NOTE | 2020-08-22 16:54 | ED ---
Medical Decision Making - Lab Data Result diagrams: 08/22/20 15:46 08/22/20 15:46 Lab Results 08/22/20 08/22/20 08/22/20 Range/Units 14:58 15:46 15:46 WBC 9.7 (3.8-10.6) k/uL RBC 4.74 (3.80-5.40) m/uL Hgb 14.1 (11.4-16.0) gm/dL Hct 42.3 (34.0-46.0) % MCV 89.2 (80.0-100.0) fL MCH 29.7 (25.0-35.0) pg MCHC 33.3 (31.0-37.0) g/dL RDW 13.8 (11.5-15.5) % Plt Count 360 (150-450) k/uL MPV 7.5 Neutrophils % 77 % Lymphocytes % 13 % Monocytes % 7 % Eosinophils % 2 % Basophils % 0 % Neutrophils # 7.5 (1.3-7.7) k/uL Lymphocytes # 1.3 (1.0-4.8) k/uL Monocytes # 0.6 (0-1.0) k/uL Eosinophils # 0.1 (0-0.7) k/uL Basophils # 0.0 (0-0.2) k/uL Sodium 138 (137-145) mmol/L Potassium 3.9 (3.5-5.1) mmol/L Chloride 104 (98-107) mmol/L Carbon Dioxide 27 (22-30) mmol/L Anion Gap 7 mmol/L BUN 19 H (7-17) mg/dL Creatinine 0.44 L (0.52-1.04) mg/dL Est GFR (CKD-EPI)AfAm >90 (>60 ml/min/1.73 sqM) Est GFR (CKD-EPI)NonAf >90 (>60 ml/min/1.73 sqM) Glucose 94 (74-99) mg/dL Calcium 9.1 (8.4-10.2) mg/dL Urine Color Yellow Urine Appearance Clear (Clear) Urine pH 5.5 (5.0-8.0) Ur Specific [place] 1.019 (1.001-1.035) Urine Protein Negative (Negative) Urine Glucose (UA) Negative (Negative) Urine Ketones Negative (Negative) Urine Blood Negative (Negative) Urine Nitrite Negative (Negative) Urine Bilirubin Negative (Negative) Urine Urobilinogen 2.0 (<2.0) mg/dL Ur Leukocyte Esterase Large H (Negative) Urine RBC 2 (0-5) /hpf Urine WBC 83 H (0-5) /hpf Ur Squamous Epith Cells 2 (0-4) /hpf Urine Bacteria Few H (None) /hpf Hyaline Casts 1 (0-2) /lpf Urine Mucus Rare H (None) /hpf Disposition Clinical Impression: UTI (urinary tract infection), Back strain Disposition: HOME SELF-CARE Condition: Fair Instructions (If sedation given, give patient instructions): Acute Low Back Pain (ED), Urinary Tract Infection in Women (ED) Prescriptions: Cephalexin [Keflex] 500 mg PO Q6HR 7 Days #28 cap Lidocaine 5% Patch [Lidoderm] 1 patch TOPICAL DAILY PRN 5 Days #5 patch PRN Reason: Pain HYDROcodone/APAP 5-325MG [[place] 5-325] 1 tab PO Q6HR PRN 3 Days #12 tab PRN Reason: Severe Pain Is patient prescribed a controlled substance at d/c from ED?: Yes If prescribed controlled substance>3 days was MAPS reviewed?: Prescribed <3 Days Referrals: Scott Carrillo MD [Primary Care Provider] - 1-2 days
== END 2020-08-22 17:15 | disposition home or self-care (01) ==
LOC: EC 14:25
DX: N39.0 Urinary tract infection, site not specified (principal); S39.012A Strain of muscle, fascia and tendon of lower back, initial encounter; B96.20 Unspecified Escherichia coli [E. coli] as the cause of diseases classified elsewhere; E78.5 Hyperlipidemia, unspecified; I10 Essential (primary) hypertension; I25.10 Atherosclerotic heart disease of native coronary artery without angina pectoris; M19.90 Unspecified osteoarthritis, unspecified site; Z95.1 Presence of aortocoronary bypass graft; X58.XXXA Exposure to other specified factors, initial encounter
CPT/HCPCS: 36415; 80048; 85025; 81001; 87086; 87077; 87186; 72100; 72170; 99283; 96374; J0696

== ENCOUNTER → 2020-09-23 | Outpatient (CLI) | payer MEDICARE, BC ==
--- NOTE | 2020-09-23 22:48 | MR ---
EXAMINATION TYPE: MR lumbar spine wo/w con DATE OF EXAM: 09/23/2020 COMPARISON: None HISTORY: Spondylosis, OA of spine CONTRAST: Standard multiplanar, multisequence MRI departmental protocol utilizing 7 mL intravenous Gadavist dario olinium contrast. Lumbar vertebra show a mild L4-5 subluxation. Vertebra otherwise have fairly normal alignment. The cazares bluxation measures 5 mm. There is decreased signal on T1 and T2 images in the L4 vertebral body which shows some biconcave compression deformity. There is mild enhancement of the body. There is some mild biconcave changes also involving L5 L3 L1. There is 40% anterior wedging of T12. T here is approximate 15% compression deformity of T11. There is no paraspinal mass. There is severe sp inal stenosis at L4-5 due to the subluxation and facet arthropathy. There is also severe spinal steno sis at L3-4 due to facet arthropathy. IMPRESSION: Multiple compression fractures. There is some mild enhancement of L4 fracture which is probably subac abraham. I do not see a symmetrical disease to suggest metastatic disease. There is severe spinal stenosis at L3-4 and L4-5.
== END | disposition home or self-care (01) ==
LOC: RADMRIMAIN 08:44
PROVIDERS: ATTEND Family Medicine
DX: M47.816 Spondylosis without myelopathy or radiculopathy, lumbar region (principal); M48.061 Spinal stenosis, lumbar region without neurogenic claudication
CPT/HCPCS: 72158; A9585

== ENCOUNTER → 2020-10-17 | Outpatient (CLI) | payer MEDICARE, BC ==
--- NOTE | 2020-10-17 16:07 | NM ---
EXAMINATION TYPE: NM bone scan whole body DATE OF EXAM: 10/17/2020 COMPARISON: MRI 09/23/2020 HISTORY: Compression fractures Delayed whole-body scanning was performed following the injection of 23.5 mCi Tc 99m MDP. Images acq uired 3 hours post injection. FINDINGS: There is focal uptake multiple vertebral bodies including a midthoracic vertebral body and 2 lumbar v ertebral bodies, likely corresponding to the compression fractures noted on recent MRI. Bilateral xiang al uptake is seen. Uptake in the left shoulder, bilateral feet and left hip are most likely degenerat ra in etiology. IMPRESSION: Multilevel increased activity of thoracic and lumbar vertebral bodies most likely corresponds to know n compression fractures.
== END | disposition home or self-care (01) ==
LOC: RADNMMAIN 11:16
PROVIDERS: ATTEND Physical Medicine & Rehabilitation
DX: S22.080A Wedge compression fracture of T11-T12 vertebra, initial encounter for closed fracture (principal); S32.040A Wedge compression fracture of fourth lumbar vertebra, initial encounter for closed fracture
CPT/HCPCS: 78306; A9503

== ENCOUNTER → 2021-02-16 | Outpatient (CLI) | payer MEDICARE, BC ==
[2021-02-16 20:36] LABS: African American GFR (CKD) 102.2 (60.0-200.0); Albumin 4.1 g/dL (3.8-4.9); Albumin/Globulin Ratio 1.45 (1.60-3.17); Anion Gap 11.9 mmol/L (4.00-12.00); BUN/Creat Ratio 37.07 Ratio (12.00-20.00); Blood Urea Nitrogen 18.2 mg/dL (9.0-27.0); Calcium 9.9 mg/dL (8.7-10.3); Carbon Dioxide 25.7 mmol/L (21.6-31.8); Globulin 2.8 g/dL (1.6-3.3); Non-African American GFR(CKD) 88.2 (60.0-200.0); Potassium 4.5 mmol/L (3.5-5.5); Total Bilirubin 0.3 mg/dL (0.30-1.20); Total Protein 6.9 g/dL (6.2-8.2)
== END | disposition home or self-care (01) ==
LOC: LABWHC1 10:24
PROVIDERS: ATTEND Family Medicine
DX: R06.00 Dyspnea, unspecified (principal)
CPT/HCPCS: 36415; 80053; 83880

== ENCOUNTER 2021-03-28 15:50 | Emergency (ER) | payer MEDICARE, BC ==
--- NOTE | 2021-03-28 16:16 | ED ---
Fall HPI - General Chief Complaint: Fall Stated Complaint: Fall Time Seen by Provider: 03/28/21 15:55 Source: patient Mode of arrival: ambulatory - History of Present Illness Initial Comments: 85-year-old female with past mental history of hypertension, coronary artery disease presents emergency department after she sustained a fall. She was attempting to take the [place] decorations down from the [place] tree. She was using a full-size ladder. EMS states that she was on the bottom rung of the ladder when she fell onto her walker which was decided her. She did hit her head. Denies losing consciousness. She is not on any blood thinners. She complains of left hip, left shoulder pain. She also has lower back pain and a hematoma to her forehead. She was given 3 mg of morphine informal grams of Zofran en route to the hospital. She denies any headaches or visual changes. No confusion. Denies any chest pain or shortness of breath. No numbness, tingling or weakness in her extremity. No other alleviating, precipitating or modifying factors - Related Data Home Medications Medication Instructions Recorded Confirmed Calcium Carbonate/Vitamin D3 1 tab PO DAILY 06/07/16 08/22/20 [Caltrate 600 Plus D3 20 Mcg (800 Iu)] Ferrous Sulfate [Iron (65 MG 325 mg PO BID 06/07/16 08/22/20 Elemental)] Nitroglycerin Sl Tabs [Nitrostat] 0.4 mg PO Q5M PRN 06/07/16 08/22/20 Simvastatin [Zocor] 20 mg PO HS 06/07/16 08/22/20 Multivit-Min/FA/Lycopen/Lutein 1 tab PO DAILY 08/17/18 08/22/20 [Centrum Silver Tablet] Cholecalciferol [Vitamin D3 (25 25 mcg PO DAILY 05/01/20 08/22/20 Mcg = 1000 Iu)] Losartan Potassium 50 mg PO DAILY 05/01/20 08/22/20 Naproxen Sodium [Aleve] 220 mg PO BID PRN 08/22/20 08/22/20 Previous Rx's Medication Instructions Recorded Cephalexin [Keflex] 500 mg PO Q6HR 7 Days #28 cap 08/22/20 HYDROcodone/APAP 5-325MG [[place] 1 tab PO Q6HR PRN 3 Days #12 tab 08/22/20 5-325] Lidocaine 5% Patch [Lidoderm] 1 patch TOPICAL DAILY PRN 5 Days 08/22/20 #5 patch Allergies Allergy/AdvReac Type Severity Reaction Status Date / Time No Known Allergies Allergy Verified 03/28/21 16:06 Review of Systems ROS Statement: Those systems with pertinent positive or pertinent negative responses have been documented in the HPI. ROS Other: All systems not noted in ROS Statement are negative. Past Medical History Past Medical History: Coronary Artery Disease (CAD), Hyperlipidemia, Hypertension, Osteoarthritis (OA) Additional Past Medical History / Comment(s): right renal cyst; fall at home 04/30/20 History of Any Multi-Drug Resistant Organisms: None Reported Past Surgical History: Appendectomy, Bladder Surgery, Cholecystectomy, Coronary Bypass/CABG, Orthopedic Surgery, Tubal Ligation Additional Past Surgical History / Comment(s): Bilat knee replace, bilat cataracts, CABG 3 vessel 12 years ago, D and C Past Anesthesia/Blood Transfusion Reactions: No Reported Reaction Additional Past Anesthesia/Blood Transfusion Reaction / Comment(s): stares that sometimes when they "put me out it is hard to wake up" Past Psychological History: No Psychological Hx Reported Smoking Status: Never smoker Past Alcohol Use History: None Reported Past Drug Use History: None Reported - Past Family History Mother Family Medical History: Coronary Artery Disease (CAD) Father Family Medical History: Coronary Artery Disease (CAD) General Exam Limitations: no limitations General appearance: alert, in no apparent distress Head exam: Present: normocephalic, other (Hematoma right occiput measuring 4 x 3 cm. No overlying laceration or abrasion) Eye exam: Present: normal appearance, PERRL, EOMI. Absent: scleral icterus, conjunctival injection, periorbital swelling ENT exam: Present: normal exam, mucous membranes moist Neck exam: Present: normal inspection. Absent: tenderness, meningismus, lymphadenopathy Respiratory exam: Present: normal lung sounds bilaterally. Absent: respiratory distress, wheezes, rales, rhonchi, stridor Cardiovascular Exam: Present: regular rate, normal rhythm, normal heart sounds. Absent: systolic murmur, diastolic murmur, rubs, gallop, clicks GI/Abdominal exam: Present: soft, normal bowel sounds. Absent: distended, tenderness, guarding, rebound, rigid Extremities exam: Present: normal inspection, tenderness (Left mid humerus), normal capillary refill, other (Painful range of motion with the left hip. No tenderness to palpation of the left hip, femur, knee, tib-fib or ankle.). Absent: pedal edema, joint swelling, calf tenderness Back exam: Present: CVA tenderness (R), CVA tenderness (L), muscle spasm Neurological exam: Present: alert, oriented X3, CN II-XII intact Psychiatric exam: Present: normal affect, normal mood Skin exam: Present: warm, dry, intact, normal color. Absent: rash Course Vital Signs 03/28/21 15:54 Temperature 98.3 F Pulse Rate 82 Respiratory 18 Rate Blood Pressure 131/77 O2 Sat by Pulse 97 Oximetry Medical Decision Making - Medical Decision Making Upon arrival patient was placed into room 6. A thorough history and physical exam was performed. Patient had been given something for pain control by EMS. She is sent for a CT of her brain, cervical spine, abdomen, pelvis and lumbar spine. X-rays of the patient's left humerus and hip are performed. Images reviewed by myself. Patient does have multiple lumbar compression deformities. I did go and discuss the results with the patient. Her daughter is in the room at the time. They are aware of the patient's lumbar compression fractures which also Dr. Lorenz and Dr. Fernandez. Patient is able to get up and ambulate to the bathroom with a walker. Feels comfortable with ambulation and with the level of her pain. She'll be discharged home at this time and needs to follow- up within one week. Return for any new or worsening symptoms. Patient and daughter agreed treatment plan the patient was discharged home in stable condition Disposition Clinical Impression: Fall, Lumbar compression fracture, Left arm pain, Scalp hematoma Disposition: HOME SELF-CARE Condition: Stable Instructions (If sedation given, give patient instructions): Fall Prevention for Older Adults (ED) Additional Instructions: Please follow-up with Dr. Lorenz in regards to your compression fractures. Take Tylenol for pain medication. Return to the emergency room for any new or worsening symptoms Is patient prescribed a controlled substance at d/c from ED?: No Referrals: Scott Carrillo MD [Primary Care Provider] - 1-2 days Huber Lorenz DO [Doctor of Osteopathic Medicine] - 1-2 days Time of Disposition: 17:41
--- NOTE | 2021-03-28 16:42 | CT ---
EXAMINATION TYPE: CT brain sudarshan wo con DATE OF EXAM: 03/28/2021 COMPARISON: CT brain 04/16/2016 HISTORY: Fall with posterior head injury. CT DLP: 1263.1 mGycm Automated exposure control for dose reduction was used. Images obtained of the brain without contrast. Ventricles have normal size. There is no mass effect or midline shift. There is no sign of intracrani al hemorrhage. The calvarium is intact. Cervical vertebra have normal alignment. There is mild degenerative spurring. Facet joints are intact . There is no compression fracture. There is some calcification of the transverse ligament at the C1 level. IMPRESSION: Mild cerebral atrophy appropriate for age. No acute intracranial abnormality. No change. Mild degenerative changes in the cervical spine. No fracture.
--- NOTE | 2021-03-28 16:51 | CT ---
EXAMINATION TYPE: CT abdomen pelvis wo con DATE OF EXAM: 03/28/2021 COMPARISON: 06/02/2018 HISTORY: Fall, back pain. CT DLP: 1091 mGycm Automated exposure control for dose reduction was used. Images obtained of the abdomen from the diaphragm to the floor the pelvis with no contrast. There is some patchy linear infiltrate in atelectasis at the lung bases. There is very large hiatal h ernia with intrathoracic stomach. There is no pericardial effusion. There is no pleural effusion. There are clips from cholecystectomy. Liver is intact. Spleen is intact. There is no sign of pancreat ic mass. There are multiple bilateral renal cysts. There is a 15 x 7 cm cystic fluid collection extending from the right renal hilum into the pelvis. This could be large renal cyst. There are left-sided renal pa rapelvic cysts. There is left hip prosthesis. Bladder distends smoothly. There is no inguinal hernia. There are some sigmoid diverticula without diverticulitis. The lumbar vertebrae show fairly normal alignment. There is a degenerative first-degree L4-5 spondylo listhesis. There is compression deformity of numerous lumbar vertebra up to 50% with osteopenia. The bony pelvis appears intact. There is no evidence of a bowel obstruction. There is no mesenteric edema. There is no ascites or latoya e air. IMPRESSION: Large right-sided renal cyst which appears slightly smaller than old CT SCAN. There are numerous lumbar compression fractures which are mostly new compared to the old exam. Mild linear infiltrate and subsegmental atelectasis at the lung bases which is mostly new compared to old exam.
--- NOTE | 2021-03-28 17:01 | CT ---
EXAMINATION TYPE: CT lumbar spine wo con DATE OF EXAM: 03/28/2021 COMPARISON: CT abdomen 06/02/2018 HISTORY: Fall, back pain. CT DLP: mGycm Automated exposure control for dose reduction was used. Images obtained from the level of T10-S2 vertebra without contrast. There is osteopenia. There is compression deformity of all the lumbar vertebra up to 50%. L2 and L1 a re more severely compressed. There is also compression of T12 and T11 vertebra up to 40%. There is mu ltilevel vacuum disks. The posterior elements are intact. There is mild anterior subluxation of L4 in relation L5. There is no lumbar paraspinal mass. I see no focal bone destruction. There is spinal st enosis at L4-5 due to subluxation and disc bulging and facet arthropathy. The sacroiliac joints are intact. IMPRESSION: Numerous lumbar and thoracic compression fractures are essentially new compared to old exam. Age of t hese fractures is not clear. There is spinal stenosis at L4-5. There is first-degree stable L4-5 spon dylolisthesis. Severe spinal stenosis at L4-5 without change.
--- NOTE | 2021-03-28 17:04 | XR ---
EXAMINATION TYPE: XR Hip Complete LT DATE OF EXAM: 03/28/2021 COMPARISON: 05/02/2020 HISTORY: Pain TECHNIQUE: 2 views FINDINGS: There is left hip prosthesis. Components appear in anatomic position. The acetabulum appear s intact. There is some vascular calcification. IMPRESSION: No acute abnormality of the left hip. No change.
--- NOTE | 2021-03-28 17:07 | XR ---
EXAMINATION TYPE: XR humerus LT DATE OF EXAM: 03/28/2021 COMPARISON: NONE HISTORY: Fall. Pain TECHNIQUE: 2 views FINDINGS: There is narrowing of the glenohumeral joint space with spurring and sclerosis. Elbow joint appears intact. I see no fracture. IMPRESSION: Moderate osteoarthritis of the shoulder joint. No fracture.
[2021-03-28 18:42] VITALS: BP 122/78; PULSE 77; RESP 16; TEMP 98.4
== END 2021-03-28 18:41 | disposition home or self-care (01) ==
LOC: EC 15:50
DX: S32.010A Wedge compression fracture of first lumbar vertebra, initial encounter for closed fracture (principal); S00.03XA Contusion of scalp, initial encounter; M79.602 Pain in left arm; I10 Essential (primary) hypertension; I25.10 Atherosclerotic heart disease of native coronary artery without angina pectoris; E78.5 Hyperlipidemia, unspecified; M19.90 Unspecified osteoarthritis, unspecified site; Z90.49 Acquired absence of other specified parts of digestive tract; Z95.1 Presence of aortocoronary bypass graft; Z98.51 Tubal ligation status; Z96.653 Presence of artificial knee joint, bilateral; W11.XXXA Fall on and from ladder, initial encounter
CPT/HCPCS: 70450; 72125; 72131; 73502; 74176; 99284

== ENCOUNTER 2021-06-21 06:42 | Emergency (ER) | payer MEDICARE, BC ==
--- NOTE | 2021-06-21 07:15 | ED ---
General Adult HPI - General Chief complaint: Headache Stated complaint: Abd Pain Time Seen by Provider: 06/21/21 06:50 Source: patient, family Mode of arrival: ambulatory Limitations: no limitations - History of Present Illness Initial comments: Dictation was produced using [employer] dictation software. please excuse any grammatical, word or spelling errors. Chief Complaint: 85-year-old female presents to the emergency department for left hip pain, right groin pain and scalp pain History of Present Illness: Is 85-year-old female she has multiple comorbidities. She is accompanied by her daughter. Patient is here in the emergency department for couple days of posterior scalp pain, left hip pain and right groin pain. Patient is a poor historian. Daughter is also poor historian. Daughter reports that patient has suffered frequent falls since [place]. She has not had any imaging done to these areas. She woke up this morning and felt like her pain to her scalp, left hip and right groin were getting worse. She is concerned she might have a urinary tract infection. She feels as though there are bumps on her scalp. Patient reports that patient's symptoms are acute on chronic. The ROS documented in this emergency department record has been reviewed and confirmed by me. Those systems with pertinent positive or negative responses have been documented in the HPI. All other systems are other negative and/or noncontributory. PHYSICAL EXAM: General Impression: Alert and oriented x3, not in acute distress HEENT: Normocephalic atraumatic, extra-ocular movements intact, pupils equal and reactive to light bilaterally, mucous membranes moist. Cardiovascular: Heart regular rate and rhythm Chest: Able to complete full sentences, no retractions, no tachypnea Abdomen: abdomen soft, non-tender, non-distended, no organomegaly Musculoskeletal: Pulses present and equal in all extremities, no peripheral edema, movement at the bilateral hips are intact and nonantalgic Motor: no focal deficits noted Neurological: CN II-XII grossly intact, no focal motor or sensory deficits noted Skin: Intact with no visualized rashes Psych: Normal affect and mood ED course: 85-year-old female presents to the emergency department for multiple pain complaints. Vital signs upon arrival are within acceptable limits. She daughter and patient did not report any specific event causing her symptoms. Laboratory evaluation obtained. 11 white blood cells in the urine nitrite positive. Computed tomography scan of the brain is unremarkable for any acute processes.. Pelvis CT is negative. Patient prescription for antibiotics for urinary tract infection. Patient had a E. coli UTI back in July of last year that was sensitive to multiple antibiotics per patient given prescription for Keflex. - Related Data Home Medications Medication Instructions Recorded Confirmed Calcium Carbonate/Vitamin D3 1 tab PO DAILY 06/07/16 08/22/20 [Caltrate 600 Plus D3 20 Mcg (800 Iu)] Ferrous Sulfate [Iron (65 MG 325 mg PO BID 06/07/16 08/22/20 Elemental)] Nitroglycerin Sl Tabs [Nitrostat] 0.4 mg PO Q5M PRN 06/07/16 08/22/20 Simvastatin [Zocor] 20 mg PO HS 06/07/16 08/22/20 Multivit-Min/FA/Lycopen/Lutein 1 tab PO DAILY 08/17/18 08/22/20 [Centrum Silver Tablet] Cholecalciferol [Vitamin D3 (25 25 mcg PO DAILY 05/01/20 08/22/20 Mcg = 1000 Iu)] Losartan Potassium 50 mg PO DAILY 05/01/20 08/22/20 Naproxen Sodium [Aleve] 220 mg PO BID PRN 08/22/20 08/22/20 Previous Rx's Medication Instructions Recorded Cephalexin [Keflex] 500 mg PO Q6HR 7 Days #28 cap 08/22/20 HYDROcodone/APAP 5-325MG [[place] 1 tab PO Q6HR PRN 3 Days #12 tab 08/22/20 5-325] Lidocaine 5% Patch [Lidoderm] 1 patch TOPICAL DAILY PRN 5 Days 08/22/20 #5 patch Cephalexin [Keflex] 500 mg PO Q6HR 5 Days #20 cap 06/21/21 Allergies Allergy/AdvReac Type Severity Reaction Status Date / Time No Known Allergies Allergy Verified 06/21/21 06:48 Review of Systems ROS Statement: Those systems with pertinent positive or pertinent negative responses have been documented in the HPI. ROS Other: All systems not noted in ROS Statement are negative. Past Medical History Past Medical History: Coronary Artery Disease (CAD), Hyperlipidemia, Hypertension, Osteoarthritis (OA) Additional Past Medical History / Comment(s): right renal cyst; fall at home 04/30/20 History of Any Multi-Drug Resistant Organisms: None Reported Past Surgical History: Appendectomy, Bladder Surgery, Cholecystectomy, Coronary Bypass/CABG, Orthopedic Surgery, Tubal Ligation Additional Past Surgical History / Comment(s): Bilat knee replace, bilat cataracts, CABG 3 vessel 12 years ago, D and C Past Anesthesia/Blood Transfusion Reactions: No Reported Reaction Additional Past Anesthesia/Blood Transfusion Reaction / Comment(s): stares that sometimes when they "put me out it is hard to wake up" Past Psychological History: No Psychological Hx Reported Smoking Status: Never smoker Past Alcohol Use History: None Reported Past Drug Use History: None Reported - Past Family History Mother Family Medical History: Coronary Artery Disease (CAD) Father Family Medical History: Coronary Artery Disease (CAD) General Exam Limitations: no limitations Course Vital Signs 06/21/21 06:42 Temperature 97.7 F Pulse Rate 74 Respiratory 22 Rate Blood Pressure 145/83 O2 Sat by Pulse 97 Oximetry Medical Decision Making - Lab Data Lab Results 06/21/21 Range/Units 08:21 Urine Color Yellow Urine Appearance Cloudy H (Clear) Urine pH 7.0 (5.0-8.0) Ur Specific [place] 1.014 (1.001-1.035) Urine Protein Negative (Negative) Urine Glucose (UA) Negative (Negative) Urine Ketones Negative (Negative) Urine Blood Negative (Negative) Urine Nitrite Positive H (Negative) Urine Bilirubin Negative (Negative) Urine Urobilinogen <2.0 (<2.0) mg/dL Ur Leukocyte Esterase Small H (Negative) Urine RBC 1 (0-5) /hpf Urine WBC 11 H (0-5) /hpf Ur Squamous Epith Cells <1 (0-4) /hpf Amorphous Sediment Rare H (None) /hpf Urine Bacteria Occasional H (None) /hpf Urine Mucus Rare H (None) /hpf Disposition Clinical Impression: UTI (urinary tract infection), Scalp pain Disposition: HOME SELF-CARE Condition: Good Instructions (If sedation given, give patient instructions): Urinary Tract Infection in Women (ED) Prescriptions: Cephalexin [Keflex] 500 mg PO Q6HR 5 Days #20 cap Is patient prescribed a controlled substance at d/c from ED?: No Referrals: Scott Carrillo MD [Primary Care Provider] - 1-2 days
[2021-06-21 08:42] LABS: Amorphous Sediment,Urine Rare /hpf; Appearance,Urine Cloudy (Clear); Bacteria,Urine Occasional /hpf; Bilirubin,Urine Negative (Negative); Blood,Urine Negative (Negative); Color,Urine Yellow; Glucose,Urine (UA) Negative (Negative); Ketones,Urine Negative (Negative); Leukocyte Esterase,Urine Small (Negative); Mucus,Urine Rare /hpf; Nitrite,Urine Positive (Negative); Protein,Urine Negative (Negative); RBC,Urine 1 /hpf (0-5); Specific Gravity,Urine 1.014 (1.001-1.035); Squamous Epithelial Cell,Urine <1 /hpf (0-4); Urobilinogen,Urine <2.0 mg/dL (<2.0); WBC,Urine 11 /hpf (0-5)
--- NOTE | 2021-06-21 08:46 | CT ---
EXAMINATION TYPE: CT brain wo con DATE OF EXAM: 06/21/2021 COMPARISON: INDICATION: Head pain DLP: 1068.4 mGycm, Automated exposure control for dose reduction was used. CONTRAST: None CT of the brain is performed utilizing 3 mm thick sections through the posterior fossa and 3 mm thick sections through the remaining calvarium. Study is performed within 24 hours of arrival to the hosp ital. No abnormal hyperdensity is present to suggest an acute intracranial hemorrhage. No mass lesion is evident. No acute infarcts are evident. There is a chronic-appearing subcortical white matter hypodensity in t he right centrum semiovale. Older ischemic white matter change. Scattered periventricular white matte r ischemic changes are present which appear chronic. Ventricles and sulci are mild prominence for the patient age. Paranasal sinuses and mastoid air cells within the [id number] are clear. Hyperostosis frontalis in ternus may be present. IMPRESSIONS: 1. Old subcortical ischemic change right centrum semiovale present previously. 2. Chronic appearing periventricular white matter ischemic changes and atrophy
--- NOTE | 2021-06-21 08:51 | CT ---
EXAMINATION TYPE: CT pelvis wo con DATE OF EXAM: 06/21/2021 COMPARISON: 03/28/2021 INDICATION: Rt hip pain DLP: 402.9 mGycm, Automated exposure control for dose reduction was used. CONTRAST: 0 mL of Isovue 300. Study performed without Oral Contrast TECHNIQUE: Axial images were obtained from above the diaphragm to the pubic rami in the axial plane a t 5 mm thick sections. Reconstructed images are reviewed on the computer in the coronal plane. FINDINGS: CT PELVIS: Multiple scattered diverticuli throughout the redundant sigmoid colon. Studies lateral contrast limit ing evaluation. Appendix: Not clearly identified. No dilated tubular structure or inflammatory change is evident. Urinary bladder: Partially obscured by beam hardening artifact from left hip prosthesis. Genitourinary structures: Uterus contains a calcified fibroid. Adnexa are not clearly evident. There is a large cyst or hydronephrosis of the right hemipelvis kidney. This was present previously. Multiple nonobstructing renal stones are identified in the more posterior pole of the kidney. Vascular calcifications within the aorta. The inferior vena cava within the field of view is unremark able. Osseous structures: No suspicious lytic or sclerotic lesions. Left hip prosthesis is present. No acut e fractures evident at the right hip. Degenerative changes are at the right hip joint space the symph ysis pubis and bilateral sacroiliac joints. IMPRESSIONS: 1. No acute osseous abnormality right hip. Degenerative changes are present. 2. Large cyst right hemipelvis kidney. Hydronephrosis could be considered although no obstructing trang ology is identified.
[2021-06-21 09:11] VITALS: BP 152/90; PULSE 79; RESP 18; TEMP 98.2
== END 2021-06-21 09:12 | disposition home or self-care (01) ==
LOC: EC 06:42
DX: N39.0 Urinary tract infection, site not specified (principal); I10 Essential (primary) hypertension
CPT/HCPCS: 70450; 72192; 81001; 87086; 99284

== ENCOUNTER 2021-07-19 09:37 | Emergency (ER) | payer MEDICARE, BC ==
[2021-07-19 09:42] VITALS: RESP 18; TEMP 97.3
[2021-07-19 10:19] LABS: Basophils # (A) 0.1 k/uL (0-0.2); Basophils % (A) 1 %; Eosinophils # (A) 0.1 k/uL (0-0.7); Eosinophils % (A) 1 %; HCT 49.4 % (34.0-46.0); HGB 15.9 gm/dL (11.4-16.0); Lymphocytes # (A) 1.1 k/uL (1.0-4.8); Lymphocytes % (A) 11 %; MCHC 32.2 g/dL (31.0-37.0); MCV 96.3 fL (80.0-100.0); Mean Platelet Volume 7.8; Monocytes # (A) 0.5 k/uL (0-1.0); Monocytes % (A) 5 %; Neutrophils # (A) 7.9 k/uL (1.3-7.7); Neutrophils % (A) 81 %; Platelet Count 399 k/uL (150-450); RBC 5.13 m/uL (3.80-5.40); RDW 12.6 % (11.5-15.5); WBC 9.8 k/uL (3.8-10.6)
[2021-07-19 10:29] LABS: ALT 21 U/L (4-34); AST 34 U/L (14-36); African American GFR (CKD) >90 (>60 ml/min/1.73 sqM); Albumin 3.9 g/dL (3.5-5.0); Alkaline Phosphatase 71 U/L (38-126); Anion Gap 7 mmol/L; Blood Urea Nitrogen 24 mg/dL (7-17); Calcium 9.1 mg/dL (8.4-10.2); Carbon Dioxide 27 mmol/L (22-30); Chloride 103 mmol/L (98-107); Glucose 94 mg/dL (74-99); Non-African American GFR(CKD) >90 (>60 ml/min/1.73 sqM); Potassium 4.2 mmol/L (3.5-5.1); Sodium 137 mmol/L (137-145); Total Bilirubin 0.9 mg/dL (0.2-1.3); Total Protein 7.4 g/dL (6.3-8.2)
[2021-07-19 10:32] LABS: INR 0.9 (<1.2); Partial Thromboplastin Time 25.8 sec (22.0-30.0); Prothrombin Time 10.3 sec (9.0-12.0)
--- NOTE | 2021-07-19 11:43 | ED ---
General Adult HPI - General Chief complaint: Back Pain/Injury Stated complaint: chest & back pain, cough Time Seen by Provider: 07/19/21 11:17 Source: patient, family Mode of arrival: wheelchair Limitations: no limitations - History of Present Illness Initial comments: She has an 86-year-old female who presents with upper abdominal pain. Although the triage note states chief complaint of chest and back pain patient does not express this concern with me. Her daughter is at bedside and states that the patient has mild dementia. Patient points to her upper abdomen and says that hurts very bad. Patient has been going on for 1 day. Patient does have back pain however has sever back issues. Her pain is unchanged from her typical back pain. Patient denies fever, chills, nausea, vomiting, and blood in the stool. She denies chest pain, shortness of breath, and diaphoresis. Patient has history of cholecystectomy and appendectomy. She has an extensive heart history which includes hyperlipidemia, hypertension, and triple bypass surgery. She denies history of tobacco use. She denies family history of aortic aneurysm. - Related Data Home Medications Medication Instructions Recorded Confirmed Calcium Carbonate/Vitamin D3 1 tab PO DAILY 06/07/16 08/22/20 [Caltrate 600 Plus D3 20 Mcg (800 Iu)] Ferrous Sulfate [Iron (65 MG 325 mg PO BID 06/07/16 08/22/20 Elemental)] Nitroglycerin Sl Tabs [Nitrostat] 0.4 mg PO Q5M PRN 06/07/16 08/22/20 Simvastatin [Zocor] 20 mg PO HS 06/07/16 08/22/20 Multivit-Min/FA/Lycopen/Lutein 1 tab PO DAILY 08/17/18 08/22/20 [Centrum Silver Tablet] Cholecalciferol [Vitamin D3 (25 25 mcg PO DAILY 05/01/20 08/22/20 Mcg = 1000 Iu)] Losartan Potassium 50 mg PO DAILY 05/01/20 08/22/20 Naproxen Sodium [Aleve] 220 mg PO BID PRN 08/22/20 08/22/20 Previous Rx's Medication Instructions Recorded Cephalexin [Keflex] 500 mg PO Q6HR 7 Days #28 cap 08/22/20 HYDROcodone/APAP 5-325MG [[place] 1 tab PO Q6HR PRN 3 Days #12 tab 08/22/20 5-325] Lidocaine 5% Patch [Lidoderm] 1 patch TOPICAL DAILY PRN 5 Days 08/22/20 #5 patch Cephalexin [Keflex] 500 mg PO Q6HR 5 Days #20 cap 06/21/21 Allergies Allergy/AdvReac Type Severity Reaction Status Date / Time No Known Allergies Allergy Verified 07/19/21 09:42 Review of Systems ROS Statement: Those systems with pertinent positive or pertinent negative responses have been documented in the HPI. ROS Other: All systems not noted in ROS Statement are negative. Past Medical History Past Medical History: Coronary Artery Disease (CAD), Hyperlipidemia, Hypertension, Osteoarthritis (OA) Additional Past Medical History / Comment(s): right renal cyst; fall at home 04/30/20 History of Any Multi-Drug Resistant Organisms: None Reported Past Surgical History: Appendectomy, Bladder Surgery, Cholecystectomy, Coronary Bypass/CABG, Orthopedic Surgery, Tubal Ligation Additional Past Surgical History / Comment(s): Bilat knee replace, bilat cataracts, CABG 3 vessel 12 years ago, D and C Past Anesthesia/Blood Transfusion Reactions: No Reported Reaction Additional Past Anesthesia/Blood Transfusion Reaction / Comment(s): stares that sometimes when they "put me out it is hard to wake up" Past Psychological History: No Psychological Hx Reported Smoking Status: Never smoker Past Alcohol Use History: None Reported Past Drug Use History: None Reported - Past Family History Mother Family Medical History: Coronary Artery Disease (CAD) Father Family Medical History: Coronary Artery Disease (CAD) General Exam Limitations: no limitations General appearance: alert, in no apparent distress Head exam: Present: atraumatic, normocephalic, normal inspection Eye exam: Present: normal appearance, PERRL, EOMI. Absent: scleral icterus, conjunctival injection, periorbital swelling ENT exam: Present: mucous membranes moist Neck exam: Present: normal inspection, full ROM Respiratory exam: Present: normal lung sounds bilaterally. Absent: respiratory distress, wheezes, rales, rhonchi, stridor Cardiovascular Exam: Present: regular rate, normal rhythm, normal heart sounds. Absent: systolic murmur, diastolic murmur, rubs, gallop, clicks, JVD GI/Abdominal exam: Present: soft, tenderness (Patient is very tender in RUQ, LUQ, and epigastric region), normal bowel sounds. Absent: distended, guarding, rebound, rigid Extremities exam: Present: normal inspection, normal capillary refill Neurological exam: Present: alert, oriented X3, CN II-XII intact Psychiatric exam: Present: normal affect, normal mood Skin exam: Present: warm, dry, intact, normal color. 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 Sinus rhythm, no ST elevation or depression. Ventricular rate 82. WI interval 175. QRS duration 158. QTC 474 Medical Decision Making - Medical Decision Making Patient is a 6-year-old female with extensive heart history who presents with upper abdominal pain. Thorough history and examination were performed. Cardiac workup was initiated in triage. EKG reveals sinus rhythm with no ST elevation or depression. Troponin is within normal limits. With the patient's age, extensive heart history, and tenderness on exam, aortic dissection and aortic aneurysm are on my differential. CT angiogram of the abdomen and pelvis was obtained which showed no evidence for thoracic aortic dissection or aortic aneurysm. There is a large hiatal hernia containing loops of transverse colon in the stomach. Morphine and fluid bolus were given. On reevaluation patient states she no longer has abdominal pain. She will be discharged with instruction to follow-up with her primary care provider for further evaluation and management. Patient and her daughter verbalize understanding and are agreeable to this plan. Dr. Whelan is my attending. - Lab Data Result diagrams: 07/19/21 10:10 07/19/21 10:10 Lab Results 07/19/21 07/19/21 07/19/21 Range/Units 10:10 10:10 10:10 WBC 9.8 (3.8-10.6) k/uL RBC 5.13 (3.80-5.40) m/uL Hgb 15.9 (11.4-16.0) gm/dL Hct 49.4 H (34.0-46.0) % MCV 96.3 (80.0-100.0) fL MCH 31.0 (25.0-35.0) pg MCHC 32.2 (31.0-37.0) g/dL RDW 12.6 (11.5-15.5) % Plt Count 399 (150-450) k/uL MPV 7.8 Neutrophils % 81 % Lymphocytes % 11 % Monocytes % 5 % Eosinophils % 1 % Basophils % 1 % Neutrophils # 7.9 H (1.3-7.7) k/uL Lymphocytes # 1.1 (1.0-4.8) k/uL Monocytes # 0.5 (0-1.0) k/uL Eosinophils # 0.1 (0-0.7) k/uL Basophils # 0.1 (0-0.2) k/uL PT (9.0-12.0) sec INR (<1.2) APTT (22.0-30.0) sec Sodium 137 (137-145) mmol/L Potassium 4.2 (3.5-5.1) mmol/L Chloride 103 (98-107) mmol/L Carbon Dioxide 27 (22-30) mmol/L Anion Gap 7 mmol/L BUN 24 H (7-17) mg/dL Creatinine 0.42 L (0.52-1.04) mg/dL Est GFR (CKD-EPI)AfAm >90 (>60 ml/min/1.73 sqM) Est GFR (CKD-EPI)NonAf >90 (>60 ml/min/1.73 sqM) Glucose 94 (74-99) mg/dL Calcium 9.1 (8.4-10.2) mg/dL Total Bilirubin 0.9 (0.2-1.3) mg/dL AST 34 (14-36) U/L ALT 21 (4-34) U/L Alkaline Phosphatase 71 (38-126) U/L Troponin I <0.012 (0.000-0.034) ng/mL Total Protein 7.4 (6.3-8.2) g/dL Albumin 3.9 (3.5-5.0) g/dL Lipase (23-300) U/L Urine Color Urine Appearance (Clear) Urine pH (5.0-8.0) Ur Specific [place] (1.001-1.035) Urine Protein (Negative) Urine Glucose (UA) (Negative) Urine Ketones (Negative) Urine Blood (Negative) Urine Nitrite (Negative) Urine Bilirubin (Negative) Urine Urobilinogen (<2.0) mg/dL Ur Leukocyte Esterase (Negative) 07/19/21 07/19/21 07/19/21 Range/Units 10:10 10:15 13:24 WBC (3.8-10.6) k/uL RBC (3.80-5.40) m/uL Hgb (11.4-16.0) gm/dL Hct (34.0-46.0) % MCV (80.0-100.0) fL MCH (25.0-35.0) pg MCHC (31.0-37.0) g/dL RDW (11.5-15.5) % Plt Count (150-450) k/uL MPV Neutrophils % % Lymphocytes % % Monocytes % % Eosinophils % % Basophils % % Neutrophils # (1.3-7.7) k/uL Lymphocytes # (1.0-4.8) k/uL Monocytes # (0-1.0) k/uL Eosinophils # (0-0.7) k/uL Basophils # (0-0.2) k/uL PT 10.3 (9.0-12.0) sec INR 0.9 (<1.2) APTT 25.8 (22.0-30.0) sec Sodium (137-145) mmol/L Potassium (3.5-5.1) mmol/L Chloride (98-107) mmol/L Carbon Dioxide (22-30) mmol/L Anion Gap mmol/L BUN (7-17) mg/dL Creatinine (0.52-1.04) mg/dL Est GFR (CKD-EPI)AfAm (>60 ml/min/1.73 sqM) Est GFR (CKD-EPI)NonAf (>60 ml/min/1.73 sqM) Glucose (74-99) mg/dL Calcium (8.4-10.2) mg/dL Total Bilirubin (0.2-1.3) mg/dL AST (14-36) U/L ALT (4-34) U/L Alkaline Phosphatase (38-126) U/L Troponin I (0.000-0.034) ng/mL Total Protein (6.3-8.2) g/dL Albumin (3.5-5.0) g/dL Lipase 21 L (23-300) U/L Urine Color Light Yellow Urine Appearance Clear (Clear) Urine pH 7.0 (5.0-8.0) Ur Specific [place] 1.031 (1.001-1.035) Urine Protein Negative (Negative) Urine Glucose (UA) Negative (Negative) Urine Ketones 1+ H (Negative) Urine Blood Negative (Negative) Urine Nitrite Negative (Negative) Urine Bilirubin Negative (Negative) Urine Urobilinogen <2.0 (<2.0) mg/dL Ur Leukocyte Esterase Negative (Negative) Disposition Clinical Impression: Hiatal hernia, Upper abdominal pain Disposition: HOME SELF-CARE Condition: Good Instructions (If sedation given, give patient instructions): Hiatal Hernia (ED) Additional Instructions: Please take Tylenol as needed for pain. Follow-up with their primary care provider for your hiatal hernia. Please increase her water intake at home. Return to the emergency department if you experience new, concerning, or worsening symptoms. Is patient prescribed a controlled substance at d/c from ED?: No Referrals: Scott Carrillo MD [Primary Care Provider] - 1-2 days
[2021-07-19] MEDS ORDERED: SODIUM CHLORIDE 0.9% 1,000 ML IV STA (11:44)
[2021-07-19] MEDS ORDERED: MORPHINE SULFATE 4 MG/ML SYRINGE IVP STA (11:51)
[2021-07-19 13:37] LABS: Appearance,Urine Clear (Clear); Bilirubin,Urine Negative (Negative); Blood,Urine Negative (Negative); Color,Urine Light Yellow; Glucose,Urine (UA) Negative (Negative); Ketones,Urine 1+ (Negative); Leukocyte Esterase,Urine Negative (Negative); Nitrite,Urine Negative (Negative); Protein,Urine Negative (Negative); Specific Gravity,Urine 1.031 (1.001-1.035); Urobilinogen,Urine <2.0 mg/dL (<2.0)
--- NOTE | 2021-07-19 13:40 | CT ---
EXAMINATION TYPE: CT angio thor/abd pel aorta CT DLP: 1313.4 mGycm, Automated exposure control for dose reduction was used. DATE OF EXAM: 07/19/2021 1:11 PM COMPARISON: CT abdomen pelvis 03/28/2021.. CLINICAL INDICATION:Female, 86 years old with history of rule out AAA and dissection, Chest and back pain TECHNIQUE: Dissection protocol: Multiple axial CT images of the chest, abdomen, and pelvis were obtai ximena prior and to the administration of IV contrast. 3-D reformats and maximum intensity projection fo rmat were performed on a separate workstation. Then the abdomen was scanned after administration of 8 0 cc of Isovue 370 IV contrast. FINDINGS: ARTERIAL VASCULATURE: The thoracic aorta is normal in course. There is scattered atherosclerosis thro ughout the aorta. Ascending thoracic aorta is mildly dilated measuring 39 mm. There is coronary arter y atherosclerosis as well as aortic leaflet calcifications. There is no evidence of aortic dissection , aneurysm or acute aortic injury. Great arch vessels patent and normal in course and caliber. PULMONARY ARTERIAL VASCULATURE: Normal caliber. VENOUS SYSTEM: Unremarkable. Lungs/pleura: No evidence of focal consolidation, pneumothorax or pleural effusion. There is streaky atelectasis within the lung bases. Heart: Heart is mildly enlarged for size. There is lipomatous hypertrophy of interatrial septum. Mitr al valve annular calcifications. Mediastinum: No gross evidence of adenopathy. There is a large sliding hernia containing loops of col on and the stomach. Lower Neck: No significant findings. Musculoskeletal: Sternotomy wires are present. Abdomen: Liver: Unremarkable. Gallbladder and Bile ducts: The gallbladder surgically absent. The common bile duct is dilated likely secondary to postcholecystectomy physiology. Pancreas: Unremarkable. Spleen: Unremarkable. Adrenal glands: Unremarkable. 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 No hydronephrosis. Stomach and Bowel: Colonic diverticula throughout the visualized colon most pronounced in the sigmoid colon. No evidence of bowel obstruction. Peritoneum: No evidence of pneumoperitoneum, free fluid, or adenopathy. Bladder: Unremarkable. Reproductive: Degenerating calcified fibroid present. Abdominal wall/soft tissues: Unremarkable. Musculoskeletal: Left hip prosthesis limits evaluation of the pelvis secondary to streak artifact. Sc attered presumably bony islands are seen within the pelvis. Moderate to severe degenerative changes o f the right hip with large osteophyte. Multilevel disc degeneration changes with compression deformit ies which are not grossly changed from 03/28/2021. There is tendinosis of the hamstring origins. IMPRESSION: 1. No evidence for thoracic aortic dissection or aortic aneurysm. 2. Large hiatal hernia containing loops of transverse colon and the stomach. 3. 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 4. Colonic diverticulosis. 5. Lipomatous hypertrophy of interatrial septum. 6. Severe multilevel degeneration changes and compression deformity is not significantly changed from prior.
[2021-07-19 14:10] VITALS: BP 173/87; PULSE 85
== END 2021-07-19 14:10 | disposition home or self-care (01) ==
LOC: EC 09:37
DX: K44.9 Diaphragmatic hernia without obstruction or gangrene (principal); K57.30 Diverticulosis of large intestine without perforation or abscess without bleeding; I10 Essential (primary) hypertension; E78.5 Hyperlipidemia, unspecified; Z90.49 Acquired absence of other specified parts of digestive tract; Z79.899 Other long term (current) drug therapy
CPT/HCPCS: 36415; 93005; 80053; 83690; 84484; 85025; 85610; 85730; 81003; 71275; 74174; 99284; 96374; 96361; J2270; Q9967

== ENCOUNTER 2021-11-26 12:41 | Emergency (ER) | payer MEDICARE, BC ==
[2021-11-26 12:55] VITALS: RESP 16
[2021-11-26] MEDS ORDERED: DIPH,PERTUS(ACELL)TETVAC-LF 0.5 ML VIAL IM ONE (12:58)
--- NOTE | 2021-11-26 13:01 | ED ---
General Adult HPI - General Chief complaint: Extremity Injury, Lower Stated complaint: Fall Time Seen by Provider: 11/26/21 12:42 Source: patient, EMS, RN notes reviewed Mode of arrival: ambulatory Limitations: no limitations - History of Present Illness Initial comments: Patient is a pleasant 86-year-old female presenting to the emergency department with concerns for fall. Incident occurred prior to arrival. Patient was carrying a told when she tripped. Patient does not believe she hit her head very hard. No sick a few. No loss of consciousness. No neck or back pain. No chest pain or dyspnea. No abdominal pain. Patient does admit to having some mild left hip pain. Patient did not attempt ambulation because her friend told her not to. Patient does not take anticoagulants. - Related Data Home Medications Medication Instructions Recorded Confirmed Losartan Potassium 50 mg PO DAILY 05/01/20 11/26/21 Alendronate Sodium [Fosamax] 70 mg PO WELCH 11/26/21 11/26/21 Furosemide [Lasix] 20 mg PO DIRECTED 11/26/21 11/26/21 Pantoprazole [Protonix] 40 mg PO BID 11/26/21 11/26/21 busPIRone HCl [Buspar] 5 mg PO TID PRN 11/26/21 11/26/21 traMADol HCl [Ultram] 50 mg PO DAILY PRN 11/26/21 11/26/21 Allergies Allergy/AdvReac Type Severity Reaction Status Date / Time No Known Allergies Allergy Verified 11/26/21 13:29 Review of Systems ROS Statement: Those systems with pertinent positive or pertinent negative responses have been documented in the HPI. ROS Other: All systems not noted in ROS Statement are negative. Constitutional: Denies: fever Eyes: Denies: eye pain ENT: Denies: ear pain Respiratory: Denies: cough, dyspnea Cardiovascular: Denies: chest pain Endocrine: Denies: fatigue Gastrointestinal: Denies: abdominal pain Genitourinary: Denies: dysuria Musculoskeletal: Reports: as per HPI Skin: Denies: rash Neurological: Denies: headache, weakness Past Medical History Past Medical History: Coronary Artery Disease (CAD), Hyperlipidemia, Hypertension, Osteoarthritis (OA) Additional Past Medical History / Comment(s): right renal cyst; fall at home 04/30/20 History of Any Multi-Drug Resistant Organisms: None Reported Past Surgical History: Appendectomy, Bladder Surgery, Cholecystectomy, Coronary Bypass/CABG, Orthopedic Surgery, Tubal Ligation Additional Past Surgical History / Comment(s): Bilat knee replace, bilat cataracts, CABG 3 vessel 12 years ago, D and C Past Anesthesia/Blood Transfusion Reactions: No Reported Reaction Additional Past Anesthesia/Blood Transfusion Reaction / Comment(s): stares that sometimes when they "put me out it is hard to wake up" Past Psychological History: No Psychological Hx Reported Smoking Status: Never smoker Past Alcohol Use History: None Reported Past Drug Use History: None Reported - Past Family History Mother Family Medical History: Coronary Artery Disease (CAD) Father Family Medical History: Coronary Artery Disease (CAD) General Exam Limitations: no limitations General appearance: alert, in no apparent distress Head exam: Present: other (Left forehead abrasion) Eye exam: Present: normal appearance, PERRL, EOMI ENT exam: Present: normal oropharynx Neck exam: Present: normal inspection. Absent: tenderness Respiratory exam: Present: normal lung sounds bilaterally Cardiovascular Exam: Present: regular rate, normal rhythm Expanded Peripheral pulses: 2+: Posterior Tibialis (R), Posterior Tibialis (L) GI/Abdominal exam: Present: soft. Absent: tenderness Extremities exam: Present: full ROM (Patient is able to actively raise both legs without difficulty), tenderness (Mild tenderness left lateral hip with ecchymosis) Neurological exam: Present: alert, CN II-XII intact. Absent: motor sensory deficit Expanded Neurological exam: Present: protecting the airway Speech: Present: fluid speech Cranial nerves: EOM's Intact: Normal Sensory exam: Upper Extremity Light Touch: Normal, Lower Extremity Light Touch: Normal Motor strength exam: RUE: 5, LUE: 5, RLE: 5, LLE: 5 Eye Response: (4) open spontaneously Motor Response: (6) obeys commands Verbal Response: (5) oriented Psychiatric exam: Present: normal affect, normal mood Skin exam: Present: normal color Course Vital Signs 11/26/21 11/26/21 12:46 12:52 Temperature 97.8 F 98.8 F Pulse Rate 76 82 Respiratory 18 16 Rate Blood Pressure 143/84 143/84 O2 Sat by Pulse 97 98 Oximetry - Reevaluation(s) Reevaluation #1: 11/26/21 13:00 Patient refuses pain medication at this time. Medical Decision Making - Medical Decision Making Patient reevaluated and resting comfortably in bed. Patient updated on results - Radiology Data Radiology results: report reviewed (Computed tomography scan of brain and cervical spine does not reveal acute process. Chronic appearing wedge compressions T4 and T6.), image reviewed (X-ray left hip and pelvis does not reveal acute process.) Disposition Clinical Impression: Fall, Contusion, hip, Head contusion Disposition: HOME SELF-CARE Condition: Stable Instructions (If sedation given, give patient instructions): Hip Contusion (ED), Head Injury (ED) Additional Instructions: Please follow-up with your primary care physician in the next day or 2 for recheck. [id number] Tylenol as needed. Return for increased pain, falling, change in mental status, worsening symptoms or other concerns. Is patient prescribed a controlled substance at d/c from ED?: No Referrals: Scott Carrillo MD [Primary Care Provider] - 1-2 days
--- NOTE | 2021-11-26 13:37 | CT ---
EXAMINATION TYPE: CT brain cspine wo con CT DLP: 1293 mGycm, Automated exposure control for dose reduction was used. DATE OF EXAM: 11/26/2021 1:33 PM COMPARISON: CT brain 06/21/2021, CT brain C-spine 03/28/2021. CLINICAL INDICATION:Female, 86 years old with history of fall; TECHNIQUE: Brain: Multiple axial CT images of the brain were obtained without IV contrast. Cspine: Axial CT images from the skull base to the inferior aspect of T2 we obtained without intraven ous contrast. Coronal and sagittal reformatted images were also reviewed. FINDINGS: Brain: Extra-axial spaces: No abnormal extra-axial fluid collections. Ventricular system: Within normal limits Cerebral parenchyma: No acute intraparenchymal hemorrhage or mass effect. Old subcortical ischemic i njury to the right centrum semiovale. The diaz-white junction is well differentiated. Scattered hypoa ttenuating areas are seen within the white matter. Cerebral volume loss. Cerebellum: Unremarkable. Mass effect: No evidence of midline shift. Intracranial vasculature: Atherosclerotic calcifications of the intracranial vessels. Soft tissues: Normal. Calvarium/osseous structures: No depressed skull fracture. Paranasal sinuses and mastoid air cells: Clear. Visualized orbits: Bilateral aphakia Cervical spine: Limited evaluation with the anterior aspects of the C2-C4 not included in the [id number]. Fracture: No acute fracture. Chronic appearing anterior wedge compression deformity of the T4 and T6 vertebral bodies with approximately 50% height loss and sclerosis. No retropulsion. Osseous structures: Multilevel degenerative disc disease changes with endplate spurring and disc oste ophyte complex's. Vertebral hemangioma involving the T1 vertebral body. Vertebral alignment: No spinal listhesis. Increase cervical lordotic curvature. Spinal canal/Neural Foramina: Multilevel disc osteophyte complexes demonstrated with at least mild sp inal canal stenosis. This is most pronounced at C5-C6 and C6-C7. Facet joint uncovertebral joint arth ropathy scattered throughout the cervical spine with varying degrees of neural foraminal stenosis. Neck soft tissues: Prevertebral soft tissues are within normal limits. Other: The airway is patent. The lung apices are clear. IMPRESSION: 1. No acute intracranial process. 2. Nonspecific white matter changes with remote injury to the right centrum semiovale, likely second sammie to chronic small vessel ischemic disease. 3. No evidence of acute cervical spine fracture within limitation of the exam. 4. Chronic appearing anterior wedge compression deformities of the T4 and T6 vertebral bodies. Corre late with point tenderness. 5. Moderate multilevel degenerative disc disease.
--- NOTE | 2021-11-26 14:43 | XR ---
EXAMINATION TYPE: XR Hip LT and AP Pelvis DATE OF EXAM: 11/26/2021 COMPARISON: CTA aorta July 19, 2021 HISTORY: Fall injury with pelvic and left hip pain TECHNIQUE: A single AP view of the pelvis is obtained. Two views of the left hip are obtained. FINDINGS: Osseous structures are demineralized which is noted to lower radiographic sensitivity Ther e is no acute displaced fracture evident in the pelvis. Asymmetric narrowing and sclerosis right sacr oiliac joint redemonstrated. Pubic symphysis is intact. Moderate superior joint space loss right hip redemonstrated. Calcifications overlying the pelvis consistent with phleboliths and small calcified f ibroid redemonstrated. Two views of left hip redemonstrate metallic hardware. Prosthetic position and stable and satisfacto ry. Some dystrophic calcifications near the shield tuberosity redemonstrated. IMPRESSION: There is no displaced fracture in the pelvis or left hip prosthesis.
[2021-11-26] MEDS ORDERED: ACETAMINOPHEN TAB 325 MG TAB PO STA (15:33)
[2021-11-26 17:16] VITALS: BP 133/100; PULSE 78; TEMP 98.1
== END 2021-11-26 18:15 | disposition home or self-care (01) ==
LOC: EC 12:41
DX: S00.93XA Contusion of unspecified part of head, initial encounter (principal); S70.02XA Contusion of left hip, initial encounter; E78.5 Hyperlipidemia, unspecified; I10 Essential (primary) hypertension; Z79.899 Other long term (current) drug therapy; Z23 Encounter for immunization; W01.0XXA Fall on same level from slipping, tripping and stumbling without subsequent striking against object, initial encounter
CPT/HCPCS: 70450; 72125; 73502; 90471; 90715; 99284

== ENCOUNTER 2022-03-22 14:19 | Emergency (ER) | payer MEDICARE, BC ==
[2022-03-22 14:31] VITALS: BP 138/83; PULSE 95; RESP 18; TEMP 98
--- NOTE | 2022-03-22 16:46 | ED ---
General Adult HPI - General Chief complaint: Extremity Problem,Nontraumatic Stated complaint: Fall/Lt wrist injury Time Seen by Provider: 03/22/22 16:18 Source: patient, family Mode of arrival: wheelchair Limitations: no limitations, physical limitation - History of Present Illness Initial comments: Dictation was produced using [employer] dictation software. please excuse any grammatical, word or spelling errors. Chief Complaint: 86-year-old female presents emergency department for left arm swelling and bilateral lower extremity swelling History of Present Illness: Patient is a 86-year-old female she has history of dementia. She is brought here by family member. Daughter provides history of present illness states that they had cephalic visitors today. Around the time after those visitors left that I set her left arm swelling along with her lower extremities. Patient denies any pain. Daughter was concerned that she has sw elling in her arm because of falling. Patient has fall. She denies any pain. Denies any shortness of breath. No chest pain. The ROS documented in this emergency department record has been reviewed and confirmed by me. Those systems with pertinent positive or negative responses have been documented in the HPI. All other systems are other negative and/or noncontributory. PHYSICAL EXAM: General Impression: Alert and oriented x3, not in acute distress HEENT: Normocephalic atraumatic, extra-ocular movements intact, pupils equal and reactive to light bilaterally, mucous membranes moist. Cardiovascular: Heart regular rate and rhythm Chest: Able to complete full sentences, no retractions, no tachypnea Abdomen: abdomen soft, non-tender, non-distended, no organomegaly Musculoskeletal: Pulses present and equal in all extremities, 1+ pitting edema to the left arm from the elbow down to the fingertips and bilateral lower extremities below the knee Motor: no focal deficits noted Neurological: CN II-XII grossly intact, no focal motor or sensory deficits noted Skin: Intact with no visualized rashes Psych: Normal affect and mood ED course: 86-year-old female presents emergency Department with extremity edema. Patient has no shortness of breath. Vital signs are stable. No pain. Nursing notes and chart review was performed Laboratory evaluation obtained. CBC, metabolic panel is unremarkable. BNP is negative. No signs of nephrotic or nephritic syndrome. There is however evidence of urinary tract infection. Patient a dose of ceftriaxone. Patient be discharged with prescription for Keflex. Advised follow-up with primary care doctor. - Related Data Home Medications Medication Instructions Recorded Confirmed Losartan Potassium 50 mg PO DAILY 05/01/20 03/22/22 Alendronate Sodium [Fosamax] 70 mg PO WELCH 11/26/21 03/22/22 Pantoprazole [Protonix] 40 mg PO DAILY 11/26/21 03/22/22 traMADol HCl [Ultram] 50 mg PO DAILY PRN 11/26/21 03/22/22 Ascorbic Acid [Vitamin C] 500 mg PO DAILY 03/22/22 03/22/22 Aspirin [Adult Low Dose Aspirin EC] 81 mg PO DAILY 03/22/22 03/22/22 Cholecalciferol [Vitamin D3 (10 10 mcg PO DAILY 03/22/22 03/22/22 Mcg = 400 Iu)] Triamterene/Hydrochlorothiazid 1 cap PO DAILY 03/22/22 03/22/22 [Triamterene-Hctz 37.5-25 mg Cp] Zinc Gluconate [Zinc] 50 mg PO DAILY 03/22/22 03/22/22 Previous Rx's Medication Instructions Recorded Cephalexin [Keflex] 250 mg PO Q6HR 5 Days #20 cap 03/22/22 Allergies Allergy/AdvReac Type Severity Reaction Status Date / Time No Known Allergies Allergy Verified 03/22/22 17:18 Review of Systems ROS Statement: Those systems with pertinent positive or pertinent negative responses have been documented in the HPI. ROS Other: All systems not noted in ROS Statement are negative. Past Medical History Past Medical History: Coronary Artery Disease (CAD), Hyperlipidemia, H ypertension, Osteoarthritis (OA) Additional Past Medical History / Comment(s): right renal cyst; fall at home 04/30/20 History of Any Multi-Drug Resistant Organisms: None Reported Past Surgical History: Appendectomy, Bladder Surgery, Cholecystectomy, Coronary Bypass/CABG, Orthopedic Surgery, Tubal Ligation Additional Past Surgical History / Comment(s): Bilat knee replace, bilat cataracts, CABG 3 vessel 12 years ago, D and C Past Anesthesia/Blood Transfusion Reactions: No Reported Reaction Additional Past Anesthesia/Blood Transfusion Reaction / Comment(s): stares that sometimes when they "put me out it is hard to wake up" Past Psychological History: No Psychological Hx Reported Smoking Status: Never smoker Past Alcohol Use History: None Reported Past Drug Use History: None Reported - Past Family History Mother Family Medical History: Coronary Artery Disease (CAD) Father Family Medical History: Coronary Artery Disease (CAD) General Exam Limitations: no limitations, physical limitation Course Vital Signs 03/22/22 14:23 Temperature 98 F Pulse Rate 95 Respiratory 18 Rate Blood Pressure 138/83 O2 Sat by Pulse 96 Oximetry Medical Decision Making - Lab Data Result diagrams: 03/22/22 17:24 03/22/22 17:24 Lab Results 03/22/22 03/22/22 03/22/22 Range/Units 17:24 17:24 17:24 WBC 10.5 (3.8-10.6) k/uL RBC 4.46 (3.80-5.40) m/uL Hgb 13.6 (11.4-16.0) gm/dL Hct 41.6 (34.0-46.0) % MCV 93.4 (80.0-100.0) fL MCH 30.4 (25.0-35.0) pg MCHC 32.6 (31.0-37.0) g/dL RDW 13.5 (11.5-15.5) % Plt Count 377 (150-450) k/uL MPV 8.6 Neutrophils % 78 % Lymphocytes % 11 % Monocytes % 8 % Eosinophils % 1 % Basophils % 0 % Neutrophils # 8.2 H (1.3-7.7) k/uL Lymphocytes # 1.2 (1.0-4.8) k/uL Monocytes # 0.8 (0-1.0) k/uL Eosinophils # 0.1 (0-0.7) k/uL Basophils # 0.0 (0-0.2) k/uL Hypochromasia Slight Sodium 138 (137-145) mmol/L Potassium 4.8 (3.5-5.1) mmol/L Chloride 105 (98-107) mmol/L Carbon Dioxide 29 (22-30) mmol/L Anion Gap 4 mmol/L BUN 25 H (7-17) mg/dL Creatinine 0.31 L (0.52-1.04) mg/dL Est GFR (CKD-EPI)AfAm >90 (>60 ml/min/1.73 sqM) Est GFR (CKD-EPI)NonAf >90 (>60 ml/min/1.73 sqM) Glucose 127 H (74-99) mg/dL Calcium 8.3 L (8.4-10.2) mg/dL NT-Pro-B Natriuret Pep 248 pg/mL Urine Color Urine Appearance (Clear) Urine pH (5.0-8.0) Ur Specific [place] (1.001-1.035) Urine Protein (Negative) Urine Glucose (UA) (Negative) Urine Ketones (Negative) Urine Blood (Negative) Urine Nitrite (Negative) Urine Bilirubin (Negative) Urine Urobilinogen (<2.0) mg/dL Ur Leukocyte Esterase (Negative) Urine RBC (0-5) /hpf Urine WBC (0-5) /hpf Ur Squamous Epith Cells (0-4) /hpf Calcium Oxalate Crystal (None) /hpf Urine Bacteria (None) /hpf Granular Casts (0) /lpf Urine Mucus (None) /hpf 03/22/22 Range/Units 19:10 WBC (3.8-10.6) k/uL RBC (3.80-5.40) m/uL Hgb (11.4-16.0) gm/dL Hct (34.0-46.0) % MCV (80.0-100.0) fL MCH (25.0-35.0) pg MCHC (31.0-37.0) g/dL RDW (11.5-15.5) % Plt Count (150-450) k/uL MPV Neutrophils % % Lymphocytes % % Monocytes % % Eosinophils % % Basophils % % Neutrophils # (1.3-7.7) k/uL Lymphocytes # (1.0-4.8) k/uL Monocytes # (0-1.0) k/uL Eosinophils # (0-0.7) k/uL Basophils # (0-0.2) k/uL Hypochromasia Sodium (137-145) mmol/L Potassium (3.5-5.1) mmol/L Chloride (98-107) mmol/L Carbon Dioxide (22-30) mmol/L Anion Gap mmol/L BUN (7-17) mg/dL Creatinine (0.52-1.04) mg/dL Est GFR (CKD-EPI)AfAm (>60 ml/min/1.73 sqM) Est GFR (CKD-EPI)NonAf (>60 ml/min/1.73 sqM) Glucose (74-99) mg/dL Calcium (8.4-10.2) mg/dL NT-Pro-B Natriuret Pep pg/mL Urine Color Yellow Urine Appearance Cloudy H (Clear) Urine pH 6.0 (5.0-8.0) Ur Specific [place] 1.026 (1.001-1.035) Urine Protein Trace H (Negative) Urine Glucose (UA) Negative (Negative) Urine Ketones Negative (Negative) Urine Blood Negative (Negative) Urine Nitrite Positive H (Negative) Urine Bilirubin Negative (Negative) Urine Urobilinogen 3.0 (<2.0) mg/dL Ur Leukocyte Esterase Large H (Negative) Urine RBC 6 H (0-5) /hpf Urine WBC 48 H (0-5) /hpf Ur Squamous Epith Cells 7 H (0-4) /hpf Calcium Oxalate Crystal Moderate H (None) /hpf Urine Bacteria Many H (None) /hpf Granular Casts 3 (0) /lpf Urine Mucus Occasional H (None) /hpf Disposition Clinical Impression: UTI (urinary tract infection) Disposition: HOME SELF-CARE Condition: Good Instructions (If sedation given, give patient instructions): Urinary Tract Infection in Women (ED) Prescriptions: Cephalexin [Keflex] 250 mg PO Q6HR 5 Days #20 cap Is patient prescribed a controlled substance at d/c from ED?: No Referrals: Scott Carrillo MD [Primary Care Provider] - 1-2 days Time of Disposition: 20:49
[2022-03-22 17:37] LABS: Basophils % (A) 0 %; Eosinophils # (A) 0.1 k/uL (0-0.7); Eosinophils % (A) 1 %; HCT 41.6 % (34.0-46.0); HGB 13.6 gm/dL (11.4-16.0); Hypochromasia Slight; Lymphocytes # (A) 1.2 k/uL (1.0-4.8); Lymphocytes % (A) 11 %; MCH 30.4 pg (25.0-35.0); MCHC 32.6 g/dL (31.0-37.0); MCV 93.4 fL (80.0-100.0); Mean Platelet Volume 8.6; Monocytes # (A) 0.8 k/uL (0-1.0); Monocytes % (A) 8 %; Neutrophils # (A) 8.2 k/uL (1.3-7.7); Neutrophils % (A) 78 %; Platelet Count 377 k/uL (150-450); RBC 4.46 m/uL (3.80-5.40); RDW 13.5 % (11.5-15.5); WBC 10.5 k/uL (3.8-10.6)
[2022-03-22 17:51] LABS: African American GFR (CKD) >90 (>60 ml/min/1.73 sqM); Anion Gap 4 mmol/L; Blood Urea Nitrogen 25 mg/dL (7-17); Calcium 8.3 mg/dL (8.4-10.2); Carbon Dioxide 29 mmol/L (22-30); Chloride 105 mmol/L (98-107); Glucose 127 mg/dL (74-99); Non-African American GFR(CKD) >90 (>60 ml/min/1.73 sqM); Sodium 138 mmol/L (137-145)
[2022-03-22 17:59] LABS: Potassium 4.8 mmol/L (3.5-5.1)
[2022-03-22 19:29] LABS: Appearance,Urine Cloudy (Clear); Bacteria,Urine Many /hpf; Bilirubin,Urine Negative (Negative); Blood,Urine Negative (Negative); Calcium Oxalate Crystals,Urine Moderate /hpf; Color,Urine Yellow; Glucose,Urine (UA) Negative (Negative); Granular Casts,Urine 3 /lpf (0); Ketones,Urine Negative (Negative); Leukocyte Esterase,Urine Large (Negative); Mucus,Urine Occasional /hpf; Nitrite,Urine Positive (Negative); Protein,Urine Trace (Negative); RBC,Urine 6 /hpf (0-5); Specific Gravity,Urine 1.026 (1.001-1.035); Squamous Epithelial Cell,Urine 7 /hpf (0-4); WBC,Urine 48 /hpf (0-5)
[2022-03-22] MEDS ORDERED: cefTRIAXone IN SWFI 1,000 MG/10 ML SYRINGE IVP STA (20:02)
== END 2022-03-22 21:28 | disposition home or self-care (01) ==
LOC: EC 14:19
DX: N39.0 Urinary tract infection, site not specified (principal); I10 Essential (primary) hypertension; I25.10 Atherosclerotic heart disease of native coronary artery without angina pectoris; M19.90 Unspecified osteoarthritis, unspecified site; Z79.82 Long term (current) use of aspirin; Z79.891 Long term (current) use of opiate analgesic
CPT/HCPCS: 36415; 83880; 80048; 85025; 81001; 99283; 96374; J0696

== ENCOUNTER 2022-05-29 13:06 | Inpatient (IN) | payer MEDICARE, BC ==
[2022-05-29] MEDS ORDERED: PANTOPRAZOLE 40 MG/10 ML VIAL IVP STA (13:25)
[2022-05-29] MEDS ORDERED: SODIUM CHLORIDE 0.9% 1,000 ML IV STA ×2 (13:25→16:06)
[2022-05-29] MEDS ORDERED: MORPHINE SULFATE 2 MG/ML SYRINGE IVP STA (13:26)
--- NOTE | 2022-05-29 13:52 | ED ---
General Adult HPI - General Stated complaint: abd pain Time Seen by Provider: 05/29/22 13:18 Source: patient, EMS, RN notes reviewed, old records reviewed - History of Present Illness Initial comments: Patient is an 86-year-old female who presents emergency department via EMS over concern for some onset abdominal pain, nausea, vomiting. Patient does have a history of dementia, and during the days usually a and O 3. EMS. Currently is in no 2. Had sudden onset of abdominal pain per EMS as well with some nausea. Patient only endorses abdominal discomfort at this time. Denies any chest pain or shortness of breath. Denies nausea at this time. Denies any recent diarrhea or constipation. Has no urinary complaints at this time. She is able to tell me her name, that she is at the hospital for abdominal discomfort but is unable to tell me the year. No other acute complaints at this time. Presents for further evaluation of a concern for abdominal pain. Is unable to localize the pain. Is unable to describe the pain. Just says that she has abdominal pain. - Related Data Home Medications Medication Instructions Recorded Confirmed Losartan Potassium 50 mg PO DAILY 05/01/20 05/29/22 Alendronate Sodium [Fosamax] 70 mg PO Q7D 11/26/21 05/29/22 Pantoprazole [Protonix] 40 mg PO DAILY 11/26/21 05/29/22 Aspirin [Adult Low Dose Aspirin EC] 81 mg PO DAILY 03/22/22 05/29/22 Triamterene/Hydrochlorothiazid 1 cap PO DAILY 03/22/22 05/29/22 [Triamterene-Hctz 37.5-25 mg Cp] Furosemide [Lasix] 20 mg PO DAILY 05/29/22 05/29/22 Simvastatin [Zocor] 20 mg PO DAILY 05/29/22 05/29/22 busPIRone HCl [Buspar] 5 mg PO TID PRN 05/29/22 05/29/22 Allergies Allergy/AdvReac Type Severity Reaction Status Date / Time No Known Allergies Allergy Verified 05/29/22 17:47 Review of Systems ROS Statement: Those systems with pertinent positive or pertinent negative responses have been documented in the HPI. Review of Systems: CONST: Denies fever EYES: Denies blurry vision ENT: Denies nasal congestion C/V: Denies Chest pain RESP: Denies shortness of breath GI: Endorses abdominal pain : Denies dysuria SKIN: Denies rash. MSK: Denies joint pain. NEURO: Denies headache ROS Other: All systems not noted in ROS Statement are negative. Past Medical History Past Medical History: Coronary Artery Disease (CAD), Hyperlipidemia, Hypertension, Osteoarthritis (OA) Additional Past Medical History / Comment(s): right renal cyst; fall at home 04/30/20 History of Any Multi-Drug Resistant Organisms: None Reported Past Surgical History: Appendectomy, Bladder Surgery, Cholecystectomy, Coronary Bypass/CABG, Orthopedic Surgery, Tubal Ligation Additional Past Surgical History / Comment(s): Bilat knee replace, bilat cataracts, CABG 3 vessel 12 years ago, D and C Past Anesthesia/Blood Transfusion Reactions: No Reported Reaction Additional Past Anesthesia/Blood Transfusion Reaction / Comment(s): stares that sometimes when they "put me out it is hard to wake up" Past Psychological History: No Psychological Hx Reported Smoking Status: Never smoker Past Alcohol Use History: None Reported Past Drug Use History: None Reported - Past Family History Mother Family Medical History: Coronary Artery Disease (CAD) Father Family Medical History: Coronary Artery Disease (CAD) General Exam - General Exam Comments Initial Comments: General: Appears in mild distress secondary to abdominal discomfort. HEAD: Normal with no signs of head trauma. EYES: PERRLA, EOMI, conjunctiva normal, no discharge. Pupils are 3 mm and equal bilaterally. ENT: Hearing grossly intact, normal oropharynx. Dry mucus membranes. RESPIRATORY: Clear breath sounds bilaterally. No wheezes, rales, or rhonchi. C/V: Regular rate and rhythm. S1 and S2 auscultated, no edema, peripheral pulses 2+ and intact throughout ABD: Abdomen is soft, nondistended. Tender to palpation generalized. No obvious focal area of tenderness. No guarding. No rebound tenderness. No peritoneal signs. No back pain. No CVA tenderness to percussion. EXT: Normal range of motion, no obvious deformity SKIN: No rashes or lesions observed on exposed skin. NEURO: Alert and oriented 2-3. Per EMS, this does appear to be somewhat her baseline but there is concern for altered mental status. No obvious focal deficits. Able to move all 4 extremities. GCS of 15. NIH appears to be 0. Course Vital Signs 05/29/22 05/29/22 14:16 16:20 Temperature 98.8 F Pulse Rate 74 68 Respiratory 18 18 Rate Blood Pressure 100/64 100/70 O2 Sat by Pulse 94 L Oximetry Medical Decision Making - Medical Decision Making Was pt. sent in by a medical professional or institution (, PA, MOISTURE METER READER, urgent care, hospital, or skilled nursing...) When possible be specific @ -No Did you speak to anyone other than the patient for history (EMS, parent, family, police, friend...)? What history was obtained from this source @ -Yes, family members including daughters who presented at bedside and provided additional history that EMS left out including the near syncopal episode. Did you review nursing and triage notes (agree or disagree)? Why? @ -I reviewed and agree with nursing and triage notes Were old charts reviewed (outside hosp., previous admission, EMS record, old EKG, old radiological studies, urgent care reports/EKG's, skilled nursing records)? Report findings @ -Yes, old charts from June 2021 reviewed including EKG. Differential Diagnosis (chest pain, altered mental status, abdominal pain women, abdominal pain men, vaginal bleeding, weakness, fever, dyspnea, syncope, headache, dizziness, GI bleed, back pain, seizure, CVA, palpatations, mental health, musculoskeletal)? @ -Differential Abdominal Pain Women: Appendicitis, Cholecystitis, diverticulosis, ischemic bowel, pancreatitis, hepatitis, UTI, gastroenteritis, AAA, incarcerated hernia, bowel obstruction, constipation, inflammatory bowel, hepatitis, peptic ulcer disease, splenic infarction, perforated viscus, vulvitis, ovarian torsion, PID, kidney stone, placenta abruption, this is not meant to be an all-inclusive list EKG interpreted by me (3pts min.). @ -As above X-rays interpreted by me (1pt min.). @ -Chest x-ray reveals no obvious cardiopulmonary process. CT interpreted by me (1pt min.). @ -CT brain negative for any acute intracranial process. CT abdomen and pelvis also negative for any acute process that is obvious to explain her pain. U/S interpreted by me (1pt. min.). @ -None done What testing was considered but not performed or refused? (CT, X-rays, U/S, labs)? Why? @ -None What meds were considered but not given or refused? Why? @ -None Did you discuss the management of the patient with other professionals (professionals i.e. DrSaqib, PA, MOISTURE METER READER, lab, RT, psych nurse, social professionals, generation technologist, teacher, security officers and guards, case management specialist)? Give summary @ -Yes, the admitting physician Dr. Carrillo who was in agreement with the plan. Was smoking cessation discussed for >3mins.? @ -No Was critical care preformed (if so, how long)? @ -No Were there social determinants of health that impacted care today? How? (Homelessness, low income, unemployed, alcoholism, drug addiction, transportation, low edu. Level, literacy, decrease access to med. care, residential, rehab)? @ -No Was there de-escalation of care discussed even if they declined (Discuss DNR or withdrawal of care, Hospice)? DNR status @ -No What co-morbidities impacted this encounter? (DM, HTN, Smoking, COPD, CAD, Cancer, CVA, ARF, Chemo, Hep., AIDS, mental health diagnosis, sleep apnea, morbid obesity)? @ -Dementia Was patient admitted / discharged? Hospital course, mention meds given and route, prescriptions, significant lab abnormalities, going to OR and other pertinent info. @ -Based on the patient's presentation and physical exam, I am concerned for acute intra-abdominal process for the patient's current symptoms. Cannot rule out atypical ACS either. Patient is somewhat a poor historian but does appear to be relatively at her baseline with a history of dementia. However due to concern for altered mental status we will obtain a CT brain in addition to cardiopulmonary and abdominal laboratory studies. CT abdomen and pelvis as well as chest x-ray will also be obtained in addition to EKG and labs. Patient symptomatically treated with IV morphine, Protonix, 1 L fluid bolus. Patient already received IV Zofran for nausea from EMS. Patient was in agreement this plan. Vital signs within acceptable limits. Chest x-ray shows no acute cardio pulmonary process. CT of the abdomen and pelvis reveals no acute intra-abdominal process. There is a large hiatal hernia present. Brain CT showed no evidence of acute intracranial process. Laboratory studies were remarkable for a mild leukocytosis of 13.8. Lactic acid is minimally elevated to 2.4. Troponin is mildly elevated to 0.073. No EKG changes to suggest acute ischemia. Remainder of the labs are unremarkable. Family presents at bedside at this time. I updated them as well as the patient on her workup. They were able to tell me more information, the patient may have had a syncopal episode in a chair which is why they originally called. She is currently at her baseline mental status which is alert and oriented 2-3. This is all she presented. She always complains of generalized abdominal discomfort. She does have a history of UTIs. No significant other details of the event. She did not fall or injure herself. We discussed her workup in however like to admit her for dehydration and further trending the troponin and lactic acid. They were in agreement with this plan. No obvious signs or source of infection. I spoke with the admitting physician, Dr. Dennison who was in agreement with the plan. Undiagnosed new problem with uncertain prognosis? @ -No Drug Therapy requiring intensive monitoring for toxicity (Heparin, Nitro, Insulin, Cardizem)? @ -No Were any procedures done? @ -No Diagnosis/symptom? @ -Dehydration Acute, or Chronic, or Acute on Chronic? @ -Acute Uncomplicated (without systemic symptoms) or Complicated (systemic symptoms)? @ -Complicated Side effects of treatment? @ -none Exacerbation, Progression, or Severe Exacerbation] @ -no Poses a threat to life or bodily function? @ -Yes, if untreated, can result in significant morbidity and mortality. Diagnosis/symptom? @ -Near syncope Acute, or Chronic, or Acute on Chronic? @ -Acute Uncomplicated (without systemic symptoms) or Complicated (systemic symptoms)? @ -Uncomplicated Side effects of treatment? @ -none Exacerbation, Progression, or Severe Exacerbation] @ -no Poses a threat to life or bodily function? @ -no Diagnosis/symptom? @ -Elevated troponin Acute, or Chronic, or Acute on Chronic? @ -Acute Uncomplicated (without systemic symptoms) or Complicated (systemic symptoms)? @ -Uncomplicated Side effects of treatment? @ -none Exacerbation, Progression, or Severe Exacerbation] @ -no Poses a threat to life or bodily function? @ -Potentially, depending on etiology can be life-threatening. Diagnosis/symptom? @ -Lactic acidosis, likely secondary to dehydration Acute, or Chronic, or Acute on Chronic? @ -Acute Uncomplicated (without systemic symptoms) or Complicated (systemic symptoms)? @ -Uncomplicated Side effects of treatment? @ -none Exacerbation, Progression, or Severe Exacerbation] @ -no Poses a threat to life or bodily function? @ -no Diagnosis/symptom? @ -Dementia Acute, or Chronic, or Acute on Chronic? @ -Chronic Uncomplicated (without systemic symptoms) or Complicated (systemic symptoms)? @ -Uncomplicated Side effects of treatment? @ -none Exacerbation, Progression, or Severe Exacerbation] @ -no Poses a threat to life or bodily function? @ -no - Lab Data Result diagrams: 05/29/22 13:38 05/29/22 13:38 Lab Results 05/29/22 05/29/22 05/29/22 Range/Units 13:38 13:38 13:38 WBC 13.8 H (3.8-10.6) k/uL RBC 5.30 (3.80-5.40) m/uL Hgb 15.4 (11.4-16.0) gm/dL Hct 48.9 H (34.0-46.0) % MCV 92.2 (80.0-100.0) fL MCH 29.1 (25.0-35.0) pg MCHC 31.5 (31.0-37.0) g/dL RDW 14.4 (11.5-15.5) % Plt Count 416 (150-450) k/uL MPV 8.4 Neutrophils % 81 % Lymphocytes % 11 % Monocytes % 5 % Eosinophils % 1 % Basophils % 1 % Neutrophils # 11.1 H (1.3-7.7) k/uL Lymphocytes # 1.5 (1.0-4.8) k/uL Monocytes # 0.8 (0-1.0) k/uL Eosinophils # 0.1 (0-0.7) k/uL Basophils # 0.1 (0-0.2) k/uL PT 10.4 (9.0-12.0) sec INR 1.0 (<1.2) APTT 21.7 L (22.0-30.0) sec Sodium 138 (137-145) mmol/L Potassium 3.5 (3.5-5.1) mmol/L Chloride 103 (98-107) mmol/L Carbon Dioxide 28 (22-30) mmol/L Anion Gap 7 mmol/L BUN 33 H (7-17) mg/dL Creatinine 0.63 (0.52-1.04) mg/dL Est GFR (CKD-EPI)AfAm >90 (>60 ml/min/1.73 sqM) Est GFR (CKD-EPI)NonAf 81 (>60 ml/min/1.73 sqM) Glucose 136 H (74-99) mg/dL Lactic Ac Sepsis Rflx Plasma Lactic Acid Kahlil (0.7-2.0) mmol/L Calcium 8.5 (8.4-10.2) mg/dL Total Bilirubin 0.8 (0.2-1.3) mg/dL AST 27 (14-36) U/L ALT 22 (4-34) U/L Alkaline Phosphatase 69 (38-126) U/L Troponin I (0.000-0.034) ng/mL Total Protein 6.6 (6.3-8.2) g/dL Albumin 3.6 (3.5-5.0) g/dL Amylase 40 (30-110) U/L Lipase 38 (23-300) U/L Urine Color Urine Appearance (Clear) Urine pH (5.0-8.0) Ur Specific [place] (1.001-1.035) Urine Protein (Negative) Urine Glucose (UA) (Negative) Urine Ketones (Negative) Urine Blood (Negative) Urine Nitrite (Negative) Urine Bilirubin (Negative) Urine Urobilinogen (<2.0) mg/dL Ur Leukocyte Esterase (Negative) Influenza Type A (PCR) (Not Detectd) Influenza Type B (PCR) (Not Detectd) RSV (PCR) (Not Detectd) SARS-CoV-2 (PCR) (Not Detectd) 05/29/22 05/29/22 05/29/22 Range/Units 13:38 13:38 14:17 WBC (3.8-10.6) k/uL RBC (3.80-5.40) m/uL Hgb (11.4-16.0) gm/dL Hct (34.0-46.0) % MCV (80.0-100.0) fL MCH (25.0-35.0) pg MCHC (31.0-37.0) g/dL RDW (11.5-15.5) % Plt Count (150-450) k/uL MPV Neutrophils % % Lymphocytes % % Monocytes % % Eosinophils % % Basophils % % Neutrophils # (1.3-7.7) k/uL Lymphocytes # (1.0-4.8) k/uL Monocytes # (0-1.0) k/uL Eosinophils # (0-0.7) k/uL Basophils # (0-0.2) k/uL PT (9.0-12.0) sec INR (<1.2) APTT (22.0-30.0) sec Sodium (137-145) mmol/L Potassium (3.5-5.1) mmol/L Chloride (98-107) mmol/L Carbon Dioxide (22-30) mmol/L Anion Gap mmol/L BUN (7-17) mg/dL Creatinine (0.52-1.04) mg/dL Est GFR (CKD-EPI)AfAm (>60 ml/min/1.73 sqM) Est GFR (CKD-EPI)NonAf (>60 ml/min/1.73 sqM) Glucose (74-99) mg/dL Lactic Ac Sepsis Rflx Y Plasma Lactic Acid Kahlil 2.4 H* (0.7-2.0) mmol/L Calcium (8.4-10.2) mg/dL Total Bilirubin (0.2-1.3) mg/dL AST (14-36) U/L ALT (4-34) U/L Alkaline Phosphatase (38-126) U/L Troponin I 0.073 H* (0.000-0.034) ng/mL Total Protein (6.3-8.2) g/dL Albumin (3.5-5.0) g/dL Amylase (30-110) U/L Lipase (23-300) U/L Urine Color Urine Appearance (Clear) Urine pH (5.0-8.0) Ur Specific [place] (1.001-1.035) Urine Protein (Negative) Urine Glucose (UA) (Negative) Urine Ketones (Negative) Urine Blood (Negative) Urine Nitrite (Negative) Urine Bilirubin (Negative) Urine Urobilinogen (<2.0) mg/dL Ur Leukocyte Esterase (Negative) Influenza Type A (PCR) (Not Detectd) Influenza Type B (PCR) (Not Detectd) RSV (PCR) (Not Detectd) SARS-CoV-2 (PCR) (Not Detectd) 05/29/22 05/29/22 Range/Units 15:18 15:21 WBC (3.8-10.6) k/uL RBC (3.80-5.40) m/uL Hgb (11.4-16.0) gm/dL Hct (34.0-46.0) % MCV (80.0-100.0) fL MCH (25.0-35.0) pg MCHC (31.0-37.0) g/dL RDW (11.5-15.5) % Plt Count (150-450) k/uL MPV Neutrophils % % Lymphocytes % % Monocytes % % Eosinophils % % Basophils % % Neutrophils # (1.3-7.7) k/uL Lymphocytes # (1.0-4.8) k/uL Monocytes # (0-1.0) k/uL Eosinophils # (0-0.7) k/uL Basophils # (0-0.2) k/uL PT (9.0-12.0) sec INR (<1.2) APTT (22.0-30.0) sec Sodium (137-145) mmol/L Potassium (3.5-5.1) mmol/L Chloride (98-107) mmol/L Carbon Dioxide (22-30) mmol/L Anion Gap mmol/L BUN (7-17) mg/dL Creatinine (0.52-1.04) mg/dL Est GFR (CKD-EPI)AfAm (>60 ml/min/1.73 sqM) Est GFR (CKD-EPI)NonAf (>60 ml/min/1.73 sqM) Glucose (74-99) mg/dL Lactic Ac Sepsis Rflx Plasma Lactic Acid Kahlil (0.7-2.0) mmol/L Calcium (8.4-10.2) mg/dL Total Bilirubin (0.2-1.3) mg/dL AST (14-36) U/L ALT (4-34) U/L Alkaline Phosphatase (38-126) U/L Troponin I (0.000-0.034) ng/mL Total Protein (6.3-8.2) g/dL Albumin (3.5-5.0) g/dL Amylase (30-110) U/L Lipase (23-300) U/L Urine Color Colorless Urine Appearance Clear (Clear) Urine pH 6.5 (5.0-8.0) Ur Specific [place] 1.026 (1.001-1.035) Urine Protein Negative (Negative) Urine Glucose (UA) Negative (Negative) Urine Ketones Negative (Negative) Urine Blood Negative (Negative) Urine Nitrite Negative (Negative) Urine Bilirubin Negative (Negative) Urine Urobilinogen <2.0 (<2.0) mg/dL Ur Leukocyte Esterase Negative (Negative) Influenza Type A (PCR) Not Detected (Not Detectd) Influenza Type B (PCR) Not Detected (Not Detectd) RSV (PCR) Not Detected (Not Detectd) SARS-CoV-2 (PCR) Not Detected (Not Detectd) - EKG Data -: EKG Interpreted by Me EKG Comments: 12-lead Electrocardiogram Interpretation Note EKG was reviewed and interpreted by myself. 12-lead ECG performed at 1325 is interpreted by me as revealing normal sinus rhythm with apparent right bundle branch block at a rate of 70 beats per minute. Right axis deviation. [place] interval is 184 ms, QRS duration is 165 ms, QTc is 494 ms.. There were no acute ST or T wave abnormalities to suggest myocardial ischemia or injury. R wave progression across the precordium was delayed. By my interpretation this EKG is non-diagnostic for acute ischemia. When compared with EKG from 07/19/2021, no significant change. Disposition Clinical Impression: Dehydration, Near syncope, Elevated troponin, Lactic acidosis, Dementia Disposition: ADMITTED IP TO THIS [facility] Condition: Stable Time of Disposition: 17:20
[2022-05-29 13:53] LABS: Basophils # (A) 0.1 k/uL (0-0.2); Basophils % (A) 1 %; Eosinophils # (A) 0.1 k/uL (0-0.7); Eosinophils % (A) 1 %; HCT 48.9 % (34.0-46.0); HGB 15.4 gm/dL (11.4-16.0); Lymphocytes # (A) 1.5 k/uL (1.0-4.8); Lymphocytes % (A) 11 %; MCH 29.1 pg (25.0-35.0); MCHC 31.5 g/dL (31.0-37.0); MCV 92.2 fL (80.0-100.0); Mean Platelet Volume 8.4; Monocytes # (A) 0.8 k/uL (0-1.0); Monocytes % (A) 5 %; Neutrophils # (A) 11.1 k/uL (1.3-7.7); Neutrophils % (A) 81 %; Platelet Count 416 k/uL (150-450); RDW 14.4 % (11.5-15.5); WBC 13.8 k/uL (3.8-10.6)
[2022-05-29 14:07] LABS: ALT 22 U/L (4-34); AST 27 U/L (14-36); African American GFR (CKD) >90 (>60 ml/min/1.73 sqM); Albumin 3.6 g/dL (3.5-5.0); Alkaline Phosphatase 69 U/L (38-126); Amylase 40 U/L (30-110); Anion Gap 7 mmol/L; Blood Urea Nitrogen 33 mg/dL (7-17); Calcium 8.5 mg/dL (8.4-10.2); Carbon Dioxide 28 mmol/L (22-30); Chloride 103 mmol/L (98-107); Glucose 136 mg/dL (74-99); Lipase 38 U/L (23-300); Non-African American GFR(CKD) 81 (>60 ml/min/1.73 sqM); Potassium 3.5 mmol/L (3.5-5.1); Sodium 138 mmol/L (137-145); Total Bilirubin 0.8 mg/dL (0.2-1.3); Total Protein 6.6 g/dL (6.3-8.2)
[2022-05-29 14:11] LABS: Prothrombin Time 10.4 sec (9.0-12.0)
[2022-05-29 14:14] LABS: Partial Thromboplastin Time 21.7 sec (22.0-30.0)
--- NOTE | 2022-05-29 14:47 | CT ---
EXAMINATION TYPE: CT brain wo con DATE OF EXAM: 05/29/2022 COMPARISON: None HISTORY: AMS CT DLP: 1188.4 mGycm Automated exposure control for dose reduction was used. Images obtained of the brain without contrast. There is cerebral cortical atrophy. There is no mass effect or midline shift. No sign of intracranial hemorrhage. The calvarium is intact. There is normal aeration of the mastoid sinuses. IMPRESSION: 3 bilateral feet. No acute intracranial abnormality. No change.
--- NOTE | 2022-05-29 14:58 | CT ---
EXAMINATION TYPE: CT abdomen pelvis w con DATE OF EXAM: 05/29/2022 COMPARISON: 07/19/2021 HISTORY: abdominal pain, acute, nonlocalized CT DLP: 876.5 mGycm Automated exposure control for dose reduction was used. CONTRAST: Performed with IV Contrast, patient injected with 100ML mL of Isovue 300. There is very large hiatal hernia with intrathoracic stomach. Hernia also contains large bowel. Heart size is fairly normal. Spleen is intact. Liver is intact. The bile ducts are not dilated. There are clips from cholecystectomy. There is no evidence of pancreatic mass. There is no adrenal mass. There is 6 x 14 cm cortical cyst in the lower pole right kidney. No hydronephrosis. Ureters are not dilated . Bladder distends smoothly. There is metal artifact from left hip prosthesis. There are multiple sig moid diverticula. No diverticulitis. No mesenteric edema. No ascites or free air. No sign of a bowel obstruction. There are some patchy atelectasis at the lung bases. No evidence of free air. No sign of a bowel obstruction. No mesenteric edema. There is osteopenia with compression deformities of numerous thoracic and lumbar vertebra up to 50%. There is irregular 2 cm calcification in the left side of the uterus consistent with uterine fibroid unchanged. IMPRESSION: Very large hiatal hernia similar to old exam. Patchy atelectasis at the lung bases. Colonic diverticu losis. No acute abnormality in the abdomen pelvis.
[2022-05-29 15:54] LABS: Appearance,Urine Clear (Clear); Bilirubin,Urine Negative (Negative); Blood,Urine Negative (Negative); Color,Urine Colorless; Glucose,Urine (UA) Negative (Negative); Ketones,Urine Negative (Negative); Leukocyte Esterase,Urine Negative (Negative); Nitrite,Urine Negative (Negative); PH, Urine 6.5 (5.0-8.0); Protein,Urine Negative (Negative); Specific Gravity,Urine 1.026 (1.001-1.035); Urobilinogen,Urine <2.0 mg/dL (<2.0)
--- NOTE | 2022-05-29 16:12 | XR ---
EXAMINATION TYPE: XR chest 2V DATE OF EXAM: 05/29/2022 COMPARISON: 05/27/2022 HISTORY: Chest pain TECHNIQUE: 2 views FINDINGS: There is large hiatal hernia. Thoracic aorta is atheromatous. There are sternal wires. Ther e is some atelectasis at the lung bases. There are chest leads. IMPRESSION: Patchy atelectasis at the lung bases which is increased compared to the old exam. No obvi ous heart failure. Large hiatal hernia without change.
[2022-05-29] MEDS ORDERED: ONDANSETRON 4 MG/2 ML VIAL IVP PRN (17:38)
[2022-05-29] MEDS ORDERED: NALOXONE 0.4 MG/ML 1 ML VIAL IV PRN (17:38)
[2022-05-29] MEDS ORDERED: ASPIRIN 81 MG PO STA (17:44)
[2022-05-29] MEDS ORDERED: busPIRone HCl 5 MG TAB PO PRN (18:49)
[2022-05-29] MEDS ORDERED: NON FORMULARY DRUG (Alendronate Sodium [Fosamax] 70 MG Tablet) PO SCH (19:00)
[2022-05-29] MEDS: SODIUM CHLORIDE 0.9% 1,000 ML IV SCH (19:19)
[2022-05-29] MEDS ORDERED: HEPARIN SODIUM 1,000 UN/ML (10ML VL) IV PRN (20:22)
[2022-05-29] MEDS: HEPARIN SOD,PORK IN 0.45% NACL 25,000 UNIT in 0.45% NACL 1 250ML.BAG IV SCH (20:54)
[2022-05-29] MEDS ORDERED: HEPARIN SODIUM,PORCINE/PF 5,000 UNIT/0.5 ML SYRINGE SQ SCH (21:00)
[2022-05-30] MEDS ORDERED: ACETAMINOPHEN TAB 325 MG TAB PO PRN (00:22)
[2022-05-30] MEDS: SODIUM CHLORIDE 0.9% 1,000 ML IV SCH ×2 (05:43→20:13)
[2022-05-30 05:50] LABS: Basophils % (A) 0 %; Eosinophils # (A) 0.1 k/uL (0-0.7); Eosinophils % (A) 1 %; HGB 13.5 gm/dL (11.4-16.0); Lymphocytes # (A) 0.7 k/uL (1.0-4.8); Lymphocytes % (A) 6 %; MCH 29.2 pg (25.0-35.0); MCHC 31.4 g/dL (31.0-37.0); MCV 93.2 fL (80.0-100.0); Monocytes # (A) 0.7 k/uL (0-1.0); Monocytes % (A) 6 %; Neutrophils % (A) 86 %; Platelet Count 351 k/uL (150-450); RBC 4.61 m/uL (3.80-5.40); RDW 14.4 % (11.5-15.5); WBC 11.6 k/uL (3.8-10.6)
[2022-05-30 06:09] LABS: African American GFR (CKD) >90 (>60 ml/min/1.73 sqM); Anion Gap 1 mmol/L; Blood Urea Nitrogen 28 mg/dL (7-17); Calcium 8.1 mg/dL (8.4-10.2); Carbon Dioxide 31 mmol/L (22-30); Chloride 105 mmol/L (98-107); Glucose 107 mg/dL (74-99); Non-African American GFR(CKD) 89 (>60 ml/min/1.73 sqM); Potassium 3.5 mmol/L (3.5-5.1); Sodium 137 mmol/L (137-145)
[2022-05-30] MEDS: PANTOPRAZOLE 40 MG TABLET PO SCH (06:57)
--- NOTE | 2022-05-30 08:22 | P.CRDCN ---
History of Present Illness Consult date: 05/30/22 Chief complaint: Upper abdomen and lower chest discomfort History of present illness: This is an 86-year-old female patient with a past medical history significant for coronary artery disease as well as hypertension and dyslipidemia who was brought to the emergency department by her family for further evaluation of chest discomfort. The patient is somewhat confused and she is poor historian. She stated that she has been experiencing intermittent episodes of lower chest and upper abdomen discomfort for the last several days. She is unable to describe the features of the chest discomfort. She reports no shortness of breath and no dizziness or lightheadedness and no presyncope or syncope. She presented to the emergency department where workup was performed including EKG showing sinus rhythm with nonspecific ST and T wave abnormalities and the troponin came in to be slightly abnormal. The chest x-ray did not show any acute abnormalities. The rest of her blood work including CBC and BNP came in to be unremarkable. The patient currently is asymptomatic. She is known to have coronary artery disease with prior CABG with unknown details at this point. On examination she has a regular rhythm with a systolic murmur at the right upper sternal border and she has clear breathing sounds bilaterally and no lower accident is edema noted. Assessment Upper abdomen and lower chest discomfort Evidence of myocardial injury with mildly abnormal troponin Coronary artery disease with prior revascularization Hypertension Dyslipidemia Plan Consider conservative medical approach giving her age and the underlying dementia/confusion Currently she is on aspirin and statin which we will continue Avoid any beta rusty in the light of the bradycardia Continue heparin for additional 24 hours Consider adding oral nitrates Obtain an echocardiogram for further risk stratification Follow-up with the patient Past Medical History Past Medical History: Coronary Artery Disease (CAD), Dementia, Hyperlipidemia, Hypertension, Osteoarthritis (OA) Additional Past Medical History / Comment(s): right renal cyst; fall at home 04/30/20 History of Any Multi-Drug Resistant Organisms: None Reported Past Surgical History: Appendectomy, Bladder Surgery, Cholecystectomy, Coronary Bypass/CABG, Hernia Repair, Orthopedic Surgery, Tubal Ligation Additional Past Surgical History / Comment(s): Bilat knee replace, bilat cataracts, CABG 3 vessel 12 years ago, D and C Past Anesthesia/Blood Transfusion Reactions: No Reported Reaction Additional Past Anesthesia/Blood Transfusion Reaction / Comment(s): stares that sometimes when they "put me out it is hard to wake up" Past Psychological History: No Psychological Hx Reported Smoking Status: Never smoker Past Alcohol Use History: None Reported Past Drug Use History: None Reported - Past Family History Mother Family Medical History: Coronary Artery Disease (CAD) Father Family Medical History: Coronary Artery Disease (CAD) Medications and Allergies Home Medications Medication Instructions Recorded Confirmed Type Losartan Potassium 50 mg PO DAILY 05/01/20 05/29/22 History Alendronate Sodium [Fosamax] 70 mg PO Q7D 11/26/21 05/29/22 History Pantoprazole [Protonix] 40 mg PO DAILY 11/26/21 05/29/22 History Aspirin [Adult Low Dose Aspirin EC] 81 mg PO DAILY 03/22/22 05/29/22 History Triamterene/Hydrochlorothiazid 1 cap PO DAILY 03/22/22 05/29/22 History [Triamterene-Hctz 37.5-25 mg Cp] Furosemide [Lasix] 20 mg PO DAILY 05/29/22 05/29/22 History Simvastatin [Zocor] 20 mg PO DAILY 05/29/22 05/29/22 History busPIRone HCl [Buspar] 5 mg PO TID PRN 05/29/22 05/29/22 History Allergies Allergy/AdvReac Type Severity Reaction Status Date / Time No Known Allergies Allergy Verified 05/29/22 17:47 Physical Exam Vitals: Vital Signs Temp Pulse Pulse Resp BP BP Pulse Ox 05/30/22 04:00 97 F L 60 18 124/72 96 05/30/22 00:00 97 F L 59 L 18 106/62 97 05/29/22 20:00 96.9 F L 63 18 116/66 98 05/29/22 18:56 75 18 102/70 96 05/29/22 16:20 68 18 100/70 05/29/22 14:16 98.8 F 74 18 100/64 94 L Intake and Output 05/29/22 05/30/22 05/30/22 22:59 06:59 14:59 Intake Total 200 800 Output Total 500 Balance 200 300 Intake: IV 200 800 Sodium Chloride 0.9% 1, 200 800 000 ml @ 100 mls/hr IV . Q10H [facility] Rx#:[id number] Output: Urine 500 Other: Voiding Method External Catheter External Catheter Weight 68.039 kg Results 05/30/22 05:23 03/05/23 05:23 Cardiac Enzymes 05/29/22 05/29/22 05/29/22 Range/Units 13:38 13:38 18:16 AST 27 (14-36) U/L Troponin I 0.073 H* 0.596 H* (0.000-0.034) ng/mL 05/29/22 Range/Units 20:46 AST (14-36) U/L Troponin I 0.759 H* (0.000-0.034) ng/mL Coagulation 05/29/22 05/30/22 Range/Units 13:38 02:00 PT 10.4 (9.0-12.0) sec APTT 21.7 L 53.3 H (22.0-30.0) sec CBC 05/29/22 05/30/22 Range/Units 13:38 05:23 WBC 13.8 H 11.6 H (3.8-10.6) k/uL RBC 5.30 4.61 (3.80-5.40) m/uL Hgb 15.4 13.5 (11.4-16.0) gm/dL Hct 48.9 H 43.0 (34.0-46.0) % Plt Count 416 351 (150-450) k/uL Comprehensive Metabolic Panel 05/29/22 05/30/22 Range/Units 13:38 05:23 Sodium 138 137 (137-145) mmol/L Potassium 3.5 3.5 (3.5-5.1) mmol/L Chloride 103 105 (98-107) mmol/L Carbon Dioxide 28 31 H (22-30) mmol/L BUN 33 H 28 H (7-17) mg/dL Creatinine 0.63 0.47 L (0.52-1.04) mg/dL Glucose 136 H 107 H (74-99) mg/dL Calcium 8.5 8.1 L (8.4-10.2) mg/dL AST 27 (14-36) U/L ALT 22 (4-34) U/L Alkaline Phosphatase 69 (38-126) U/L Total Protein 6.6 (6.3-8.2) g/dL Albumin 3.6 (3.5-5.0) g/dL Current Medications Generic Name Dose Route Start Last Admin Trade Name Freq PRN Reason Stop Dose Admin Acetaminophen 650 mg 05/30/22 00:22 05/30/22 00:49 Acetaminophen Tab 325 Mg Tab PO 650 mg Q6HR PRN Administration Fever and/ or Pain Aspirin 81 mg 05/30/22 09:00 Aspirin 81 Mg PO DAILY [facility] Atorvastatin Calcium 10 mg 05/30/22 09:00 Atorvastatin 10 Mg Tab PO DAILY [facility] Buspirone HCl 5 mg 05/29/22 18:49 Buspirone Hcl 5 Mg Tab PO TID PRN Anxiety Furosemide 20 mg 05/30/22 09:00 Furosemide 20 Mg Tab PO DAILY [facility] Heparin Sodium (Porcine) 0 unit 05/29/22 20:22 Heparin Sodium 1,000 Un/Ml (10ml Vl) IV PER PROTOCOL PRN Low PTT Protocol Sodium Chloride 1,000 mls @ 100 mls/hr 05/29/22 17:45 05/30/22 05:43 Saline 0.9% IV 100 mls/hr .Q10H [facility] Administration Heparin Sodium/Sodium Chloride 250 mls @ 8.165 mls/hr 05/29/22 20:30 05/29/22 20:54 25,000 unit/ Sodium Chloride IV 12 units/kg/hr .Q24H [facility] 8.165 mls/hr Administration Protocol 12 UNITS/KG/HR Losartan Potassium 50 mg 05/30/22 09:00 Losartan 50 Mg Tab PO DAILY [facility] Naloxone HCl 0.2 mg 05/29/22 17:38 Naloxone 0.4 Mg/Ml 1 Ml Vial IV Q2M PRN Opioid Reversal Ondansetron HCl 4 mg 05/29/22 17:38 Ondansetron 4 Mg/2 Ml Vial IVP Q8HR PRN Nausea And Vomiting Pantoprazole Sodium 40 mg 05/30/22 07:30 05/30/22 06:57 Pantoprazole 40 Mg Tablet PO 40 mg [id number] [facility] Administration Triamterene/Hydrochlorothiazide 1 each 05/30/22 09:00 Triamterene-Hctz 37.5-25mg 1 Each Cap PO DAILY [facility] Intake and Output 05/29/22 05/30/22 05/30/22 22:59 06:59 14:59 Intake Total 200 800 Output Total 500 Balance 200 300 Intake: IV 200 800 Sodium Chloride 0.9% 1, 200 800 000 ml @ 100 mls/hr IV . Q10H [facility] Rx#:[id number] Output: Urine 500 Other: Voiding Method External Catheter External Catheter Weight 68.039 kg 05/30/22 05:23 05/30/22 05:23
[2022-05-30] MEDS: LOSARTAN 50 MG TAB PO SCH (09:26)
[2022-05-30] MEDS: TRIAMTERENE-HCTZ 37.5-25MG 1 EACH CAP PO SCH (09:26)
[2022-05-30] MEDS: ASPIRIN 81 MG PO SCH (09:26)
[2022-05-30] MEDS: ATORVASTATIN 10 MG TAB PO SCH (09:26)
[2022-05-30] MEDS: FUROSEMIDE 20 MG TAB PO SCH (09:26)
[2022-05-31] MEDS: HEPARIN SOD,PORK IN 0.45% NACL 25,000 UNIT in 0.45% NACL 1 250ML.BAG IV SCH (02:51)
[2022-05-31] MEDS: SODIUM CHLORIDE 0.9% 1,000 ML IV SCH ×2 (02:51→11:37)
[2022-05-31] MEDS: PANTOPRAZOLE 40 MG TABLET PO SCH (06:12)
[2022-05-31] MEDS: ATORVASTATIN 10 MG TAB PO SCH (08:50)
[2022-05-31] MEDS: FUROSEMIDE 20 MG TAB PO SCH (08:50)
[2022-05-31] MEDS: ASPIRIN 81 MG PO SCH (08:50)
[2022-05-31] MEDS: TRIAMTERENE-HCTZ 37.5-25MG 1 EACH CAP PO SCH (08:50)
[2022-05-31] MEDS: LOSARTAN 50 MG TAB PO SCH (08:50)
--- NOTE | 2022-05-31 10:28 | CA ---
Transthoracic Echo Report Name: Della Rosa Age: 86 Gender: F : 1935 Exam Date: 05/31/2022 07:38 Exam Location: [facility] Ht (in): 66 Wt (lb): 150 Ordering Physician: Thong Cage MD Attending/Referring Phys: Microbiology Lab Technician Arvin Cole RDCS Procedure CPT: Indications: per cardiology Cardiac Hx: Technical Quality: Fair Contrast 1: Total Dose (mL): Contrast 2: Total Dose (mL): MEASUREMENTS (Male / Female) Normal Values 2D ECHO LV Diastolic Diameter PLAX 3.5 cm 4.2 - 5.9 / 3.9 - 5.3 cm LV Systolic Diameter PLAX 2.7 cm IVS Diastolic Thickness 1.2 cm 0.6 - 1.0 / 0.6 - 0.9 cm LVPW Diastolic Thickness 1.3 cm 0.6 - 1.0 / 0.6 - 0.9 cm LV Relative Wall Thickness 0.7 RV Internal Dim ED PLAX 3.5 cm LVOT Diameter 2.9 cm LA Systolic Diameter LX 2.0 cm 3.0 - 4.0 / 2.7 - 3.8 cm LV Diastolic Volume MOD BP 80.7 cm??? 67 - 155 / 56 - 104 cm??? LV Systolic Volume MOD BP 27.6 cm??? 22 - 58 / 19 - 49 cm??? LV Ejection Fraction MOD BP 65.9 % >= 55 % LV Diastolic Volume MOD 4C 79.5 cm??? LV Systolic Volume MOD 4C 26.5 cm??? LV Ejection Fraction MOD 4C 66.6 % LV Diastolic Length 4C 6.6 cm LV Systolic Length 4C 5.6 cm LV Diastolic Volume MOD 2C 72.9 cm??? LV Systolic Volume MOD 2C 25.6 cm??? LV Ejection Fraction MOD 2C 64.8 % LV Diastolic Length 2C 5.9 cm LV Systolic Length 2C 4.9 cm M-MODE Aortic Root Diameter MM 3.0 cm LA Systolic Diameter MM 3.2 cm LA Ao Ratio MM 1.1 MV E Point Septal Separation 1.1 cm AV Cusp Separation MM 1.1 cm DOPPLER AV Peak Velocity 166.3 cm/s AV Peak Gradient 11.1 mmHg MV Area PHT 3.4 cm??? Mitral E Point Velocity 79.5 cm/s Mitral A Point Velocity 142.7 cm/s Mitral E to A Ratio 0.6 MV Deceleration Time 220.9 ms MV E' Velocity 4.0 cm/s Mitral E to MV E' Ratio 19.8 TR Peak Velocity 317.8 cm/s TR Peak Gradient 40.4 mmHg Right Ventricular Systolic Press 48.4 mmHg PV Peak Velocity 87.8 cm/s PV Peak Gradient 3.1 mmHg PI Peak Gradient 9.5 mmHg FINDINGS Left Ventricle Left ventricular ejection fraction is estimated at 55 %. Mild increased left ventricular wall thickness. Grade 1 diastolic dysfunction. Right Ventricle Normal right ventricular size. Right Atrium Mild right atrial dilatation. Left Atrium Mild left atrial dilatation. Mitral Valve Mitral valve thickened. Moderate thickening/calcification of the posterior mitral valve leaflet. Mild thickening/calcification of the anterior mitral valve leaflet. Moderate mitral annular calcification. Minimal mitral stenosis. [id number] mitral regurgitation. Aortic Valve Trileaflet aortic valve. Diffuse thickening (sclerosis) of the aortic valve cusps without reduced excursion. Tricuspid Valve Moderate to severe tricuspid regurgitation. Pulmonic Valve Mild pulmonic regurgitation. Pericardium Normal pericardium. No pericardial effusion. Aorta Normal size aortic root and proximal ascending aorta. CONCLUSIONS Left ventricular ejection fraction 55% Mild increased left ventricular wall thickness Moderate mitral annular calcification Mild to moderate mitral regurgitation Moderate to severe tricuspid regurgitation RVSP 48 Previewed by: Dr. Nate Sherman DO (Electronically Signed) Final Date: 31 May 2022 10:27
[2022-05-31] MEDS ORDERED: ISOSORBIDE MONONITRATE ER 30 MG TAB.ER.24H PO SCH (11:00)
[2022-05-31 12:07] VITALS: BP 122/70; PULSE 66; RESP 14; TEMP 98
--- NOTE | 2022-05-31 14:21 | P.PN ---
Subjective Progress Note Date: 05/31/22 HISTORY OF PRESENT ILLNESS: This is an 86-year-old female patient with a past medical history significant for coronary artery disease as well as hypertension and dyslipidemia who was brought to the emergency department by her family for further evaluation of chest discomfort. The patient is somewhat confused and she is poor historian. She stated that she has been experiencing intermittent episodes of lower chest and upper abdomen discomfort for the last several days. She is unable to describe the features of the chest discomfort. She reports no shortness of breath and no dizziness or lightheadedness and no presyncope or syncope. She presented to the emergency department where workup was performed including EKG showing sinus rhythm with nonspecific ST and T wave abnormalities and the troponin came in to be slightly abnormal. The chest x-ray did not show any acute abnormalities. The rest of her blood work including CBC and BNP came in to be unremarkable. The patient currently is asymptomatic. She is known to have coronary artery disease with prior CABG with unknown details at this point. On examination she has a regular rhythm with a systolic murmur at the right upper sternal border and she has clear breathing sounds bilaterally and no lower accident is edema noted. 05/31/2022 Patient examined this morning at the bedside. Patient denies chest pain or pressure. Denies SOB. She remains on IV heparin. Vital signs are stable. PHYSICAL EXAM: VITAL SIGNS: Reviewed. GENERAL: Well-developed in no acute distress. NECK: Supple. No JVD or thyromegaly LUNGS: Respirations even and unlabored. Lungs essentially clear to auscultation bilaterally. HEART: Regular rate and rhythm. S1 and S2 heard. Systolic murmur noted. EXTREMITIES: Normal range of motion. No clubbing or cyanosis. Peripheral pulses intact. No lower extremity edema ASSESSMENT: Upper abdomen and lower chest discomfort Evidence of myocardial injury with mildly abnormal troponin Coronary artery disease with prior revascularization Hypertension Dyslipidemia PLAN: 2D echo ordered. Await results. Discontinue IV heparin. Add plavix 75mg daily and Imdur 30mg daily Hold beta rusty at this time as patient was bradycardic yesterday Patient may follow up post discharge with Dr. Cage Further recommendations pending patient course Nurse practitioner note has been reviewed by physician. Signing provider agrees with the documented findings, assessment, and plan of care. Objective - Vital Signs Vital signs: Vital Signs Temp 98.0 F 05/31/22 12:00 Pulse 66 05/31/22 12:00 Resp 14 05/31/22 12:00 BP 122/70 05/31/22 12:00 Pulse Ox 94 L 05/31/22 12:00 FiO2 Intake & Output 05/30/22 05/31/22 05/31/22 18:59 06:59 18:59 Intake Total 236 283.880 8815 Balance 236 592.859 6699 Intake: IV 300 Sodium Chloride 0.9% 1, 300 000 ml @ 100 mls/hr IV . Q10H [facility] Rx#:[id number] Intake, IV Titration 255.020 Amount Heparin Sod,Pork in 0.45% 255.020 NaCl 25,000 unit In 0.45 % NaCl 1 250ml.bag @ 12 UNITS/KG/HR 8.165 mls/hr IV .Q24H [facility] Rx#: [id number] Oral 236 918 Other: Voiding Method External Catheter External Catheter External Catheter # Voids 2 1 # Bowel Movements 1 - Labs CBC & Chem 7: 05/30/22 05:23 05/30/22 05:23 Labs: Abnormal Lab Results - Last 24 Hours (Table) 05/31/22 05/31/22 Range/Units 03:13 10:55 APTT 132.5 H* 61.2 H (22.0-30.0) sec
--- NOTE | 2022-06-01 07:37 | HP ---
HISTORY AND PHYSICAL CHIEF COMPLAINT: Syncope. HISTORY OF PRESENT ILLNESS: This is an 86-year-old white female, who has a history of heart disease and hypertension as well as dementia. They slumped over her 3 seconds at home and the ambulance was summoned. She came to emergency room where she was awake with normal vital signs and no complaints of chest pain or any other symptoms including confusion, focal neurologic deficits, headache, etc. Her troponin was elevated slightly and she was admitted. REVIEW OF SYSTEMS: She is not complaining of headache, change in vision, chest pain, shortness of breath, abdominal pain, nausea, vomiting, incontinence, etc. Past medical history, family history, personal and social histories are essentially noncontributory. She is allergic to naproxen and morphine. She is currently on Protonix, BuSpar p.r.n., Fosamax, vitamin D, furosemide, losartan, simvastatin, and aspirin. She has never smoked. She did have a CABG in the past and she has had both knees replaced. PHYSICAL EXAMINATION: VITAL SIGNS: Blood pressure is 162/92 with a pulse of 82 and regular, respirations were 20 and she is afebrile. GENERAL: She appeared to be awake and alert, in no acute distress. SKIN: Normal. HEAD, EARS, EYES, NOSE, MOUTH AND THROAT: Normal. NECK: Neck veins are not distended. CHEST: Clear. CARDIAC: Demonstrated what sounded like normal sinus rhythm with no murmurs or extra sounds. ABDOMEN: Soft and nontender without any visceromegaly or masses. EXTREMITIES: Normal. NEUROLOGICAL: She is intact. She is awake and alert. She is oriented. She has mild dementia, but her mentation seems quite clear at the time of the exam. IMPRESSION: 1. Syncopal episode, etiology known. 2. History of coronary artery disease. 3. Elevated troponin. PLAN: 1. Bed rest. 2. Telemetry. 3. IV fluids. 4. Watch for any neurologic issues or rising troponin, EKG changes, or chest pain. MMODL / IJN: [id number] /
--- NOTE | 2022-06-01 08:17 | PN ---
PROGRESS NOTE DATE OF SERVICE: 05/30/2022 CHIEF COMPLAINT: Syncopal episode. HISTORY OF PRESENT ILLNESS: This lady is doing well. She has no complaints at this time with chest pain, neurologic signs or symptoms, palpitations, etc. PHYSICAL EXAMINATION: CHEST: Clear. CARDIAC: Normal. ABDOMEN: Soft, nontender. IMPRESSION: 1. Syncope, etiology unknown. 2. Dementia. 3. History of coronary artery disease. PLAN: Increase activity and repeat troponins. Her BNP is up and she probably does have a mild component of heart failure. MMODL / IJN: [id number] /
--- NOTE | 2022-06-01 08:43 | DS ---
DISCHARGE SUMMARY CHIEF COMPLAINT: Brief syncopal episodes. HISTORY OF PRESENT ILLNESS AND PHYSICAL EXAMINATION: Details of this lady's history and physical can be found in the initial workup. LABORATORY STUDIES: While she was in the hospital, she had laboratory studies, details of which can be found in the laboratory section of her chart. COURSE IN THE HOSPITAL: After admission, she was placed on bedrest, started on intravenous fluids, placed on telemetry. Vital signs and rhythm remained stable. She is anxious to go home. It was felt that she could be safely discharged on the . She will be followed up as an outpatient. She will go home on her usual medications and diet. IMPRESSION: 1. Syncopal episode, etiology unknown. 2. History of coronary artery disease. 3. Dementia. 4. Congestive heart failure. OPERATIONS: None. CONSULTATIONS: None. She is improved. JAILYN / BROCK: [id number] /
[2022-06-01] MEDS ORDERED: CLOPIDOGREL 75 MG TAB PO SCH (09:00)
[2022-06-01] MEDS ORDERED: ATORVASTATIN 40 MG TAB PO SCH (09:00)
--- NOTE | 2022-06-02 16:29 | CDI ---
Documentation Clarification Form Date: 06/02/2022 4:15:03 PM From: Mica Atkins Admit Date: 05/29/2022 5:38:00 PM Patient Name: Della Rosa Visit Number: [id number] Discharge Date: 05/31/2022 4:27:00 PM ATTENTION: The Clinical Documentation Specialists (CDI) and [facility] Coding Staff appreciate your assistance in clarifying documentation. Please respond to the clarification below the line at the bottom and electronically sign. The CDI & [facility] Coding staff will review the response and follow-up if needed. Please note: Queries are made part of the Legal Health Record. If you have any questions, please contact the author of this message via ITS. Dr. Sctot Carrillo Conflicting documentation has been found in the medical record. As attending physician, please provide clarification. H&P 3/4: mildly elevated troponin Consult note 35 and Progress Note 6: evidence of myocardial injury with mildly abnormal troponins Progress Note 3: BNP is up and she probably has a mild component of heart failure. History/Risk Factors: 86 year old female presented for syncope, she has a history of heart disease, HTN, dementia and CAD. Clinical Indicators: syncope, CAD, HTN, elevated troponins, mild CHF Troponins: 0.073, 0.596, 0.759 BNP 485 Treatment: IV fluids, telemetry, heparin, Lipitor, Plavix Please clarify which diagnosis is most appropriate: [ ] Elevated troponin [ ] Non-Ischemic Myocardial injury due to CHF [ ] Type II DC- specify [ ] Other (please specify) [ ] Unable to determine MTDD
--- NOTE | 2022-06-02 16:54 | CDI ---
Documentation Clarification Form Date: 06/02/2022 4:30:53 PM From: Mica Atkins Admit Date: 05/29/2022 5:38:00 PM Patient Name: Della Rosa Visit Number: [id number] Discharge Date: 05/31/2022 4:27:00 PM ATTENTION: The Clinical Documentation Specialists (CDI) and [facility] Coding Staff appreciate your assistance in clarifying documentation. Please respond to the clarification below the line at the bottom and electronically sign. The CDI & [facility] Coding staff will review the response and follow-up if needed. Please note: Queries are made part of the Legal Health Record. If you have any questions, please contact the author of this message via ITS. Dr. Scott Carrillo Your patient has the documented diagnosis of unspecified mild CHF in progress note 05/30 and discharge summary 05/31. Additional information regarding the type, and acuity of mild CHF is requested. History/Risk Factors: 86 year old female presented for syncope, she has a history of heart disease, HTN, dementia and CAD. Clinical Indicators: syncope, CAD, HTN, elevated troponins, mild CHF, upper abdomen and lower chest discomfort VS/Pulse OX: T: 98.8, P: 74, Resp. Rate: 18 BP: 100/64 O2: 94% room air- placed on 2-4 L NC BNP: 485 Echocardiogram Results: LV EF: 55 %, mild to moderate mitral regurgitation, moderate to severe tricuspid regurgitation Chest X Ray: patchy atelectasis at lung bases, no obvious heart failure, large hiatal hernia without change. Treatment: IV fluids, telemetry, heparin, Lipitor, Plavix, Lasix In your professional opinion, can you please clarify the acuity and type of CHF if known? [ ] Acute Diastolic Heart Failure (preserved EF) [ ] Chronic Diastolic Heart Failure (preserved EF) [ ] Acute on Chronic Diastolic Heart Failure (preserved EF) [ ] Other, please specify [ ] Unable to determine MTDD
--- NOTE | 2022-06-30 06:39 | MISC ---
MISCELLANOUS REPORT Chronic diastolic heart failure. MMODL / IJN: [id number] /
--- NOTE | 2022-06-30 06:39 | MISC ---
MISCELLANOUS REPORT Elevated troponin. MMODL / IJN: [id number] /
== END 2022-05-31 16:27 | disposition home health service (06) | DRG 292 ==
LOC: EC 13:06 → 3SCARD 17:38
PROVIDERS: ADMIT Family Medicine; ATTEND Family Medicine
DX: I11.0 Hypertensive heart disease with heart failure (principal); E87.20 Acidosis, unspecified; R55 Syncope and collapse; E86.0 Dehydration; F03.90 Unspecified dementia, unspecified severity, without behavioral disturbance, psychotic disturbance, mood disturbance, and anxiety; I50.32 Chronic diastolic (congestive) heart failure; I45.10 Unspecified right bundle-branch block; I25.10 Atherosclerotic heart disease of native coronary artery without angina pectoris; R77.8 Other specified abnormalities of plasma proteins; E78.5 Hyperlipidemia, unspecified; K44.9 Diaphragmatic hernia without obstruction or gangrene; D72.829 Elevated white blood cell count, unspecified; Z20.822 Contact with and (suspected) exposure to COVID-19; M19.90 Unspecified osteoarthritis, unspecified site; Z79.899 Other long term (current) drug therapy; Z91.81 History of falling; Z95.1 Presence of aortocoronary bypass graft; Z87.440 Personal history of urinary (tract) infections; Z79.83 Long term (current) use of bisphosphonates; Z79.82 Long term (current) use of aspirin; Z95.820 Peripheral vascular angioplasty status with implants and grafts
CPT/HCPCS: 36415; 70450; 71046; 74177; 80048; 80053; 81003; 82150; 83605; 83690; 83880; 84484; 85025; 85610; 85730; 87636; 93005; 93306; 96361; 96365; 96366; 96375; 99285

== ENCOUNTER 2022-06-29 12:17 | Emergency (ER) | payer BC, MEDICARE ==
[2022-06-29 12:27] VITALS: RESP 18
--- NOTE | 2022-06-29 12:49 | ED ---
General Adult HPI - General Chief complaint: Dizziness Stated complaint: Hypotension Time Seen by Provider: 06/29/22 12:25 Source: patient, EMS, RN notes reviewed, old records reviewed Mode of arrival: EMS Limitations: altered mental status - History of Present Illness Initial comments: 87-year-old female presents for evaluation of low blood pressure. Patient was being seen at outside clinic for cerumen impaction. They checked a blood pressure noted to be low. EMS report states that he had systolic and 80s. The patient has no complaint. She does have poor appetite but this is baseline for her. She has a history of dementia and history is obtainable from the patient and from her daughters were at bedside. No fever. No chest pain, no abdominal pain. No vomiting or diarrhea reported - Related Data Home Medications Medication Instructions Recorded Confirmed Losartan Potassium 50 mg PO DAILY 05/01/20 06/29/22 Alendronate Sodium [Fosamax] 70 mg PO Q7D 11/26/21 06/29/22 Pantoprazole [Protonix] 40 mg PO DAILY 11/26/21 06/29/22 Aspirin [Adult Low Dose Aspirin EC] 81 mg PO DAILY 03/22/22 06/29/22 Triamterene/Hydrochlorothiazid 1 cap PO DAILY 03/22/22 06/29/22 [Triamterene-Hctz 37.5-25 mg Cp] Simvastatin [Zocor] 20 mg PO DAILY 05/29/22 06/29/22 busPIRone HCl [Buspar] 5 mg PO TID PRN 05/29/22 06/29/22 Previous Rx's Medication Instructions Recorded Clopidogrel [Plavix] 75 mg PO DAILY #30 tab 05/31/22 Isosorbide Mononitrate ER [Imdur] 30 mg PO DAILY #30 tab 05/31/22 Allergies Allergy/AdvReac Type Severity Reaction Status Date / Time No Known Allergies Allergy Verified 06/29/22 14:10 Review of Systems ROS Statement: Those systems with pertinent positive or pertinent negative responses have been documented in the HPI. ROS Other: All systems not noted in ROS Statement are negative. Past Medical History Past Medical History: Coronary Artery Disease (CAD), Dementia, Hyperlipidemia, Hypertension, Osteoarthritis (OA) Additional Past Medical History / Comment(s): right renal cyst; fall at home 04/30/20 History of Any Multi-Drug Resistant Organisms: None Reported Past Surgical History: Appendectomy, Bladder Surgery, Cholecystectomy, Coronary Bypass/CABG, Hernia Repair, Orthopedic Surgery, Tubal Ligation Additional Past Surgical History / Comment(s): Bilat knee replace, bilat cataracts, CABG 3 vessel 12 years ago, D and C Past Anesthesia/Blood Transfusion Reactions: No Reported Reaction Additional Past Anesthesia/Blood Transfusion Reaction / Comment(s): stares that sometimes when they "put me out it is hard to wake up" Past Psychological History: No Psychological Hx Reported Smoking Status: Never smoker Past Alcohol Use History: None Reported Past Drug Use History: None Reported - Past Family History Mother Family Medical History: Coronary Artery Disease (CAD) Father Family Medical History: Coronary Artery Disease (CAD) General Exam Limitations: no limitations General appearance: alert, in no apparent distress Head exam: Present: atraumatic, normocephalic Eye exam: Present: normal appearance, PERRL ENT exam: Present: normal exam Neck exam: Present: normal inspection. Absent: tenderness, meningismus Respiratory exam: Present: normal lung sounds bilaterally. Absent: respiratory distress, wheezes Cardiovascular Exam: Present: regular rate, normal rhythm GI/Abdominal exam: Present: soft. Absent: distended, tenderness, guarding Neurological exam: Present: alert. Absent: motor sensory deficit Psychiatric exam: Present: normal affect, normal mood Skin exam: Present: warm, dry, intact. Absent: cyanosis, diaphoretic Course Vital Signs 06/29/22 06/29/22 12:20 14:07 Temperature 97.4 F L Pulse Rate 92 88 Respiratory 18 18 Rate Blood Pressure 92/57 96/64 O2 Sat by Pulse 96 98 Oximetry - Reevaluation(s) Reevaluation #1: 06/29/22 14:50 Patient has no complaints and is eager for discharge. EKG Findings - EKG Comments: EKG Findings:: Social history the interventricular conduction delay, right bundle branch block, left anterior fascicular block, rate of 99, WV interval 198, QRS duration 145, QTC 428, no ST segment elevation. Compared to EKG 06/2022 - EKG Results: EKG: interpreted by GABYD Medical Decision Making - Medical Decision Making Was pt. sent in by a medical professional or institution (, PA, CAMPUS WELLNESS COORDINATOR, urgent care, hospital, or usp...) When possible be specific @ -No Did you speak to anyone other than the patient for history (EMS, parent, family, police, friend...)? What history was obtained from this source @ -No Did you review nursing and triage notes (agree or disagree)? Why? @ -I reviewed and agree with nursing and triage notes Were old charts reviewed (outside hosp., previous admission, EMS record, old EKG, old radiological studies, urgent care reports/EKG's, usp records)? Report findings @ -Medication list Differential Diagnosis (chest pain, altered mental status, abdominal pain women, abdominal pain men, vaginal bleeding, weakness, fever, dyspnea, syncope, headache, dizziness, GI bleed, back pain, seizure, CVA, palpatations, mental health, musculoskeletal)? @ -Differential Weakness: Hypoglycemia, shock, sepsis, hyponatremia, anemia, infection, CA, ETOH, adverse medicine reaction, overdose, stroke, this is not meant to be an all-inclusive list. EKG interpreted by me (3pts min.). @ -As above X-rays interpreted by me (1pt min.). @ -Chest x-ray negative for any acute findings, reviewed by myself CT interpreted by me (1pt min.). @ -None done U/S interpreted by me (1pt. min.). @ -None done What testing was considered but not performed or refused? (CT, X-rays, U/S, labs)? Why? @ -None What meds were considered but not given or refused? Why? @ -None Did you discuss the management of the patient with other professionals (professionals i.e. , PA, CAMPUS WELLNESS COORDINATOR, lab, RT, psych nurse, nephrology social worker, rn eligibility, teacher, branch lending officer, case monitor)? Give summary @ -Dr. Carrillo Was smoking cessation discussed for >3mins.? @ -No Was critical care preformed (if so, how long)? @ -No Were there social determinants of health that impacted care today? How? (Homelessness, low income, unemployed, alcoholism, drug addiction, transportation, low edu. Level, literacy, decrease access to med. care, skilled nursing, rehab)? @ -No Was there de-escalation of care discussed even if they declined (Discuss DNR or withdrawal of care, Hospice)? DNR status @ -No What co-morbidities impacted this encounter? (DM, HTN, Smoking, COPD, CAD, Cancer, CVA, ARF, Chemo, Hep., AIDS, mental health diagnosis, sleep apnea, morbid obesity)? @ -Hypertension Was patient admitted / discharged? Hospital course, mention meds given and route, prescriptions, significant lab abnormalities, going to OR and other pertinent info. @ -87-year-old female with low blood pressure. Patient given IV fluids and has a blood pressure around 90-100 systolic. She has no complaints. Workup including chest x-ray, laboratory testing and urine testing is unremarkable. Patient is currently on losartan and hydrochlorothiazide. She will discontinue her losartan and triamterene hydrochlorothiazide and monitor blood pressure closely at home. I discussed the presentation and findings with her primary care physician Dr. Carrillo who is agreeable with discharge and close outpatient follow-up at this time. The daughters will help manage the patient's medications. Undiagnosed new problem with uncertain prognosis? @ -No Drug Therapy requiring intensive monitoring for toxicity (Heparin, Nitro, Insulin, Cardizem)? @ -No Were any procedures done? @ -No Diagnosis/symptom? @ -Low blood pressure Acute, or Chronic, or Acute on Chronic? @ -acute Uncomplicated (without systemic symptoms) or Complicated (systemic symptoms)? @ -Complicated] - Lab Data Result diagrams: 06/29/22 12:40 06/29/22 12:40 Lab Results 06/29/22 06/29/22 06/29/22 Range/Units 12:40 12:40 12:40 WBC 9.9 (3.8-10.6) k/uL RBC 4.72 (3.80-5.40) m/uL Hgb 14.3 (11.4-16.0) gm/dL Hct 42.7 (34.0-46.0) % MCV 90.4 (80.0-100.0) fL MCH 30.3 (25.0-35.0) pg MCHC 33.5 (31.0-37.0) g/dL RDW 15.1 (11.5-15.5) % Plt Count 391 (150-450) k/uL MPV 8.3 Neutrophils % 76 % Lymphocytes % 14 % Monocytes % 5 % Eosinophils % 2 % Basophils % 0 % Neutrophils # 7.5 (1.3-7.7) k/uL Lymphocytes # 1.4 (1.0-4.8) k/uL Monocytes # 0.5 (0-1.0) k/uL Eosinophils # 0.2 (0-0.7) k/uL Basophils # 0.0 (0-0.2) k/uL PT 10.2 (9.0-12.0) sec INR 1.0 (<1.2) APTT 23.5 (22.0-30.0) sec Sodium (137-145) mmol/L Potassium (3.5-5.1) mmol/L Chloride (98-107) mmol/L Carbon Dioxide (22-30) mmol/L Anion Gap mmol/L BUN (7-17) mg/dL Creatinine (0.52-1.04) mg/dL Est GFR (CKD-EPI)AfAm (>60 ml/min/1.73 sqM) Est GFR (CKD-EPI)NonAf (>60 ml/min/1.73 sqM) Glucose (74-99) mg/dL Plasma Lactic Acid Kahlil (0.7-2.0) mmol/L Calcium (8.4-10.2) mg/dL Magnesium (1.6-2.3) mg/dL Total Bilirubin (0.2-1.3) mg/dL AST (14-36) U/L ALT (4-34) U/L Alkaline Phosphatase (38-126) U/L Total Protein (6.3-8.2) g/dL Albumin (3.5-5.0) g/dL Urine Color Light Yellow Urine Appearance Cloudy H (Clear) Urine pH 6.0 (5.0-8.0) Ur Specific [place] 1.008 (1.001-1.035) Urine Protein Negative (Negative) Urine Glucose (UA) Negative (Negative) Urine Ketones Negative (Negative) Urine Blood Negative (Negative) Urine Nitrite Negative (Negative) Urine Bilirubin Negative (Negative) Urine Urobilinogen <2.0 (<2.0) mg/dL Ur Leukocyte Esterase Trace H (Negative) Urine WBC 5 (0-5) /hpf Ur Squamous Epith Cells <1 (0-4) /hpf Amorphous Sediment Few H (None) /hpf Urine Bacteria Few H (None) /hpf Hyaline Casts 3 H (0-2) /lpf Blood Type Blood Type Recheck Bld Type Recheck Status Antibody Screen Spec Expiration Date 06/29/22 06/29/22 06/29/22 Range/Units 12:40 12:40 12:40 WBC (3.8-10.6) k/uL RBC (3.80-5.40) m/uL Hgb (11.4-16.0) gm/dL Hct (34.0-46.0) % MCV (80.0-100.0) fL MCH (25.0-35.0) pg MCHC (31.0-37.0) g/dL RDW (11.5-15.5) % Plt Count (150-450) k/uL MPV Neutrophils % % Lymphocytes % % Monocytes % % Eosinophils % % Basophils % % Neutrophils # (1.3-7.7) k/uL Lymphocytes # (1.0-4.8) k/uL Monocytes # (0-1.0) k/uL Eosinophils # (0-0.7) k/uL Basophils # (0-0.2) k/uL PT (9.0-12.0) sec INR (<1.2) APTT (22.0-30.0) sec Sodium 137 (137-145) mmol/L Potassium 4.3 (3.5-5.1) mmol/L Chloride 103 (98-107) mmol/L Carbon Dioxide 29 (22-30) mmol/L Anion Gap 5 mmol/L BUN 26 H (7-17) mg/dL Creatinine 0.42 L (0.52-1.04) mg/dL Est GFR (CKD-EPI)AfAm >90 (>60 ml/min/1.73 sqM) Est GFR (CKD-EPI)NonAf >90 (>60 ml/min/1.73 sqM) Glucose 99 (74-99) mg/dL Plasma Lactic Acid Kahlil 1.3 (0.7-2.0) mmol/L Calcium 8.8 (8.4-10.2) mg/dL Magnesium 1.9 (1.6-2.3) mg/dL Total Bilirubin 0.7 (0.2-1.3) mg/dL AST 25 (14-36) U/L ALT 25 (4-34) U/L Alkaline Phosphatase 83 (38-126) U/L Total Protein 6.6 (6.3-8.2) g/dL Albumin 3.6 (3.5-5.0) g/dL Urine Color Urine Appearance (Clear) Urine pH (5.0-8.0) Ur Specific [place] (1.001-1.035) Urine Protein (Negative) Urine Glucose (UA) (Negative) Urine Ketones (Negative) Urine Blood (Negative) Urine Nitrite (Negative) Urine Bilirubin (Negative) Urine Urobilinogen (<2.0) mg/dL Ur Leukocyte Esterase (Negative) Urine WBC (0-5) /hpf Ur Squamous Epith Cells (0-4) /hpf Amorphous Sediment (None) /hpf Urine Bacteria (None) /hpf Hyaline Casts (0-2) /lpf Blood Type O Positive Blood Type Recheck O Pos Bld Type Recheck Status No Antibody Screen NEGATIVE Spec Expiration Date 07/02/20222339 Disposition Clinical Impression: Dehydration, Hypotension Disposition: HOME SELF-CARE Condition: Fair Instructions (If sedation given, give patient instructions): Dizziness (ED) Additional Instructions: Please discontinue losartan and triamterene hydrochlorothiazide monitoring her blood pressure closely, keep a blood pressure journal and follow up with your primary care physician Dr. Carrillo. Is patient prescribed a controlled substance at d/c from ED?: No Referrals: Scott Carrillo MD [Primary Care Provider] - 1-2 days Time of Disposition: 14:51
[2022-06-29 12:57] LABS: Basophils % (A) 0 %; Eosinophils # (A) 0.2 k/uL (0-0.7); Eosinophils % (A) 2 %; HCT 42.7 % (34.0-46.0); HGB 14.3 gm/dL (11.4-16.0); Lymphocytes # (A) 1.4 k/uL (1.0-4.8); Lymphocytes % (A) 14 %; MCH 30.3 pg (25.0-35.0); MCHC 33.5 g/dL (31.0-37.0); MCV 90.4 fL (80.0-100.0); Mean Platelet Volume 8.3; Monocytes # (A) 0.5 k/uL (0-1.0); Monocytes % (A) 5 %; Neutrophils # (A) 7.5 k/uL (1.3-7.7); Neutrophils % (A) 76 %; Platelet Count 391 k/uL (150-450); RBC 4.72 m/uL (3.80-5.40); RDW 15.1 % (11.5-15.5); WBC 9.9 k/uL (3.8-10.6)
[2022-06-29 13:17] LABS: Partial Thromboplastin Time 23.5 sec (22.0-30.0); Prothrombin Time 10.2 sec (9.0-12.0)
[2022-06-29] MEDS ORDERED: SODIUM CHLORIDE 0.9% 1,000 ML IV ONE (13:20)
[2022-06-29 13:23] LABS: ALT 25 U/L (4-34); AST 25 U/L (14-36); African American GFR (CKD) >90 (>60 ml/min/1.73 sqM); Albumin 3.6 g/dL (3.5-5.0); Alkaline Phosphatase 83 U/L (38-126); Anion Gap 5 mmol/L; Blood Urea Nitrogen 26 mg/dL (7-17); Calcium 8.8 mg/dL (8.4-10.2); Carbon Dioxide 29 mmol/L (22-30); Chloride 103 mmol/L (98-107); Glucose 99 mg/dL (74-99); Magnesium 1.9 mg/dL (1.6-2.3); Non-African American GFR(CKD) >90 (>60 ml/min/1.73 sqM); Potassium 4.3 mmol/L (3.5-5.1); Sodium 137 mmol/L (137-145); Total Bilirubin 0.7 mg/dL (0.2-1.3); Total Protein 6.6 g/dL (6.3-8.2)
--- NOTE | 2022-06-29 13:28 | XR ---
EXAMINATION TYPE: XR chest 2V DATE OF EXAM: 06/29/2022 COMPARISON: 05/29/2022 HISTORY: Shortness of breath TECHNIQUE: Frontal and lateral views of the chest are obtained. FINDINGS: Scattered senescent parenchymal changes noted. Hyperinflation compatible with COPD. No evidence for infiltrate. No evidence for atelectasis. Heart size is stable. Large fixed hiatal hernia. Mediastinal structures are stable and grossly unremarkable. No evidence for hilar prominence. Degenerative changes dorsal spine. IMPRESSION: 1. No evidence for acute pulmonary disease.
[2022-06-29 14:08] VITALS: BP 96/64; PULSE 88
[2022-06-29 14:22] LABS: Amorphous Sediment,Urine Few /hpf; Appearance,Urine Cloudy (Clear); Bacteria,Urine Few /hpf; Bilirubin,Urine Negative (Negative); Blood,Urine Negative (Negative); Color,Urine Light Yellow; Glucose,Urine (UA) Negative (Negative); Hyaline Casts,Urine 3 /lpf (0-2); Ketones,Urine Negative (Negative); Leukocyte Esterase,Urine Trace (Negative); Nitrite,Urine Negative (Negative); Protein,Urine Negative (Negative); Specific Gravity,Urine 1.008 (1.001-1.035); Squamous Epithelial Cell,Urine <1 /hpf (0-4); Urobilinogen,Urine <2.0 mg/dL (<2.0); WBC,Urine 5 /hpf (0-5)
[2022-06-29 15:02] VITALS: TEMP 97.6
== END 2022-06-29 15:02 | disposition home or self-care (01) ==
LOC: EC 12:17
DX: I95.9 Hypotension, unspecified (principal); E86.0 Dehydration; I10 Essential (primary) hypertension; E78.5 Hyperlipidemia, unspecified; I25.10 Atherosclerotic heart disease of native coronary artery without angina pectoris; F03.90 Unspecified dementia, unspecified severity, without behavioral disturbance, psychotic disturbance, mood disturbance, and anxiety; M19.90 Unspecified osteoarthritis, unspecified site; Z79.82 Long term (current) use of aspirin; Z79.899 Other long term (current) drug therapy; Z95.1 Presence of aortocoronary bypass graft
CPT/HCPCS: 36415; 71046; 80053; 81001; 83605; 83735; 85025; 85610; 85730; 86850; 86900; 86901; 93005; 96360; 99285

== ENCOUNTER 2022-11-18 15:38 | Inpatient (IN) | payer MEDICARE, BC ==
--- NOTE | 2022-11-18 15:52 | ED ---
Back Pain HPI - General Source: patient, RN notes reviewed Mode of arrival: wheelchair Limitations: no limitations - History of Present Illness MD Complaint: back pain <Tsering Helms - Last Filed: 11/18/22 15:47> <Day Huber - Last Filed: 11/19/22 01:38> - General Chief Complaint: Back Pain/Injury Stated Complaint: back pain cellulitis bilat legs Time Seen by Provider: 11/18/22 19:25 - History of Present Illness Initial Comments: This is an 87 year old female who presents to the emergency department for pain to the mid and lower back. Unsure how long this has been going on. Also reports swelling and skin tears to the bilateral LEs. Denies any pain associated with this. States that her PCP instructed her to come to the emergency department for evaluation. (Tsering Helms) 87-year-old female with past medical history of chronic back pain who presents to the emergency department for lower extremity swelling. Daughters are at bedside and helps provide history. States that their mother has been more sedentary as of recently which has caused significant lower extremity swelling to the point where the patient's skin is not breaking and weeping. They deny DVT history. No history of congestive heart failure. Patient has no shortness of breath. She does live alone. They went and seen the primary care doctor today. Dr. Carrillo recommended that the patient going to the hospital for further evaluation and wound treatment. Patient admits to worsening chronic upper and lower back pain. Previously saw Dr. Easton who stated that she had advanced arthritic changes without operative options. She takes Tylenol for pain. Denies any numbness or tingling into her legs. No fevers or cough. No other alleviating, precipitating or modifying factors (Day Huber) - Related Data Home Medications Medication Instructions Recorded Confirmed Alendronate Sodium [Fosamax] 70 mg PO Q7D 11/26/21 11/18/22 Pantoprazole [Protonix] 40 mg PO DAILY 11/26/21 11/18/22 Aspirin [Adult Low Dose Aspirin EC] 81 mg PO DAILY 03/22/22 11/18/22 Simvastatin [Zocor] 20 mg PO DAILY 05/29/22 11/18/22 busPIRone HCl [Buspar] 5 mg PO TID PRN 05/29/22 11/18/22 Furosemide [Lasix] 20 mg PO DAILY 11/18/22 11/18/22 Multivitamins, Thera [Multivitamin 1 tab PO DAILY 11/18/22 11/18/22 (formulary)] Vit C/E/Zn/Coppr/Lutein/Zeaxan 1 cap PO BID 11/18/22 11/18/22 [Preservision Areds 2 Softgel] Previous Rx's Medication Instructions Recorded Clopidogrel [Plavix] 75 mg PO DAILY #30 tab 05/31/22 Isosorbide Mononitrate ER [Imdur] 30 mg PO DAILY #30 tab 05/31/22 Allergies Allergy/AdvReac Type Severity Reaction Status Date / Time No Known Allergies Allergy Verified 11/18/22 21:16 Review of Systems ROS Other: All systems not noted in ROS Statement are negative. <Tsering Helms - Last Filed: 11/18/22 15:47> ROS Other: All systems not noted in ROS Statement are negative. <Day Huber - Last Filed: 11/19/22 01:38> ROS Statement: Those systems with pertinent positive or pertinent negative responses have been documented in the HPI. Past Medical History Past Medical History: Coronary Artery Disease (CAD), Dementia, Hyperlipidemia, Hypertension, Osteoarthritis (OA) Additional Past Medical History / Comment(s): right renal cyst; fall at home 04/30/20 History of Any Multi-Drug Resistant Organisms: None Reported Past Surgical History: Appendectomy, Bladder Surgery, Cholecystectomy, Coronary Bypass/CABG, Hernia Repair, Orthopedic Surgery, Tubal Ligation Additional Past Surgical History / Comment(s): Bilat knee replace, bilat cataracts, CABG 3 vessel 12 years ago, D and C Past Anesthesia/Blood Transfusion Reactions: No Reported Reaction Additional Past Anesthesia/Blood Transfusion Reaction / Comment(s): stares that sometimes when they "put me out it is hard to wake up" Past Psychological History: No Psychological Hx Reported Smoking Status: Never smoker Past Alcohol Use History: None Reported Past Drug Use History: None Reported - Past Family History Mother Family Medical History: Coronary Artery Disease (CAD) Father Family Medical History: Coronary Artery Disease (CAD) <Tsering Helms - Last Filed: 11/18/22 15:47> General Exam <Tsering Helms - Last Filed: 11/18/22 15:47> Limitations: physical limitation (Hard of hearing) General appearance: alert, in no apparent distress Head exam: Present: atraumatic, normocephalic, normal inspection Eye exam: Present: normal appearance, PERRL, EOMI. Absent: scleral icterus, conjunctival injection, periorbital swelling ENT exam: Present: normal exam, mucous membranes moist Neck exam: Present: normal inspection. Absent: tenderness, meningismus, lymphadenopathy Respiratory exam: Present: normal lung sounds bilaterally. Absent: respiratory distress, wheezes, rales, rhonchi, stridor Cardiovascular Exam: Present: regular rate, normal rhythm, normal heart sounds. Absent: systolic murmur, diastolic murmur, rubs, gallop, clicks GI/Abdominal exam: Present: soft, normal bowel sounds. Absent: distended, tenderness, guarding, rebound, rigid Extremities exam: Present: tenderness, normal capillary refill, pedal edema (Significant 3+ pitting edema. Multiple skin tears with clear drainage. No bleeding. No signs of cellulitis). Absent: joint swelling, calf tenderness Back exam: Present: normal inspection Neurological exam: Present: alert, oriented X3, CN II-XII intact Psychiatric exam: Present: normal affect, normal mood Skin exam: Present: warm, dry, intact, normal color. Absent: rash <Day Huber Kraig - Last Filed: 11/19/22 01:38> - General Exam Comments Initial Comments: Visual Physical Exam Vital signs reviewed General: Well-appearing, nontoxic, no acute distress. Head: Normocephalic, atraumatic Eyes: PERRLA, EOMI ENT: Airway patent Chest: Nonlabored breathing Skin: No visual rash, normal skin tone Neuro: Alert and oriented 3 Musculoskeletal: No gross abnormalities I performed the QuickNote portion of this chart. Signed Tsering Helms PA-C. (Tsering Helms) Course Vital Signs 11/18/22 11/18/22 11/18/22 15:45 21:58 23:12 Temperature 98.7 F Pulse Rate 96 72 81 Respiratory 20 18 18 Rate Blood Pressure 142/79 131/81 135/82 O2 Sat by Pulse 94 L 94 L 97 Oximetry Medical Decision Making - Lab Data Result diagrams: 11/18/22 19:33 11/18/22 19:33 <Day Huber - Last Filed: 11/19/22 01:38> - Medical Decision Making Was pt. sent in by a medical professional or institution ([facility], [facility], urgent care, hospital, or long term...) When possible be specific @ -Patient was sent in by Dr. Carrillo Did you speak to anyone other than the patient for history (EMS, parent, family, police, friend...)? What history was obtained from this source @ -I spoke with the patient's daughters in regards to her symptoms Did you review nursing and triage notes (agree or disagree)? Why? @ -I reviewed and agree with nursing and triage notes Were old charts reviewed (outside hosp., previous admission, EMS record, old EKG, old radiological studies, urgent care reports/EKG's, long term records)? Report findings @ -No old charts were reviewed Differential Diagnosis (chest pain, altered mental status, abdominal pain women, abdominal pain men, vaginal bleeding, weakness, fever, dyspnea, syncope, headache, dizziness, GI bleed, back pain, seizure, CVA, palpatations, mental health, musculoskeletal)? @ -Differential Back Pain: Strain, zoster, cauda equina syndrome, epidural abscess, vertebral osteomyelitis, discitis, fracture, subluxation, disc herniation, DJD, spinal stenosis, dissection, AAA, pancreatitis, peptic ulcer disease, pyelonephritis, kidney stone, this is not meant to be an all-inclusive list. EKG interpreted by me (3pts min.). @ -Not done X-rays interpreted by me (1pt min.). @ -yes and demonstrates multiple worsening compression fractures CT interpreted by me (1pt min.). @ -None done U/S interpreted by me (1pt. min.). @ -Yes and demonstrates no DVT What testing was considered but not performed or refused? (CT, X-rays, U/S, labs)? Why? @ -None What meds were considered but not given or refused? Why? @ -None Did you discuss the management of the patient with other professionals (professionals i.e. [facility], [facility], lab, RT, psych nurse, social service manager, media senior recruiter, teacher, chief quality officer, nurse outreach case manager)? Give summary @ -Spoke with Dr. Carrillo who agreed to admit patient Was smoking cessation discussed for >3mins.? @ -No Was critical care preformed (if so, how long)? @ -No Were there social determinants of health that impacted care today? How? (Homelessness, low income, unemployed, alcoholism, drug addiction, transportation, low edu. Level, literacy, decrease access to med. care, shelter, rehab)? @ -No Was there de-escalation of care discussed even if they declined (Discuss DNR or withdrawal of care, Hospice)? DNR status @ -No What co-morbidities impacted this encounter? (DM, HTN, Smoking, COPD, CAD, Cancer, CVA, ARF, Chemo, Hep., AIDS, mental health diagnosis, sleep apnea, morbid obesity)? @ -Chronic back pain Was patient admitted / discharged? Hospital course, mention meds given and route, prescriptions, significant lab abnormalities, going to OR and other pertinent info. @ -Upon arrival patient was placed into room 25. Thorough history and physical exam was performed. ATP orders have been placed. I did review the results. She is given a [place] for pain control. Patient's lower extremities are cleansed and wrapped. I discussed the case with Dr. Carrillo who agreed to admit the patient for PT, OT, wound care and possible rehab. Patient was agreeable to admission. Lasix ordered for tomorrow. Patient awaiting a bed on the floor in stable condition Undiagnosed new problem with uncertain prognosis? @ -Yes Drug Therapy requiring intensive monitoring for toxicity (Heparin, Nitro, Insulin, Cardizem)? @ -No Were any procedures done? @ -No Diagnosis/symptom? @ -Acute bilateral lower extremity edema, acute exacerbation of chronic back pain Acute, or Chronic, or Acute on Chronic? @ -Acute Uncomplicated (without systemic symptoms) or Complicated (systemic symptoms)? @ -Complicated Side effects of treatment? @ -No Exacerbation, Progression, or Severe Exacerbation? @ -No Poses a threat to life or bodily function? How? (Chest pain, [place], NC, pneumonia, PE, COPD, DKA, ARF, appy, cholecystitis, CVA, Diverticulitis, Homicidal, Suicidal, threat to staff... and all critical care pts) @ -No (Day Huber) - Lab Data Lab Results 11/18/22 11/18/22 11/18/22 Range/Units 19:33 19:33 19:33 WBC 10.3 (3.8-10.6) k/uL RBC 4.84 (3.80-5.40) m/uL Hgb 14.6 (11.4-16.0) gm/dL Hct 44.4 (34.0-46.0) % MCV 91.7 (80.0-100.0) fL MCH 30.1 (25.0-35.0) pg MCHC 32.9 (31.0-37.0) g/dL RDW 13.8 (11.5-15.5) % Plt Count 389 (150-450) k/uL MPV 8.0 Neutrophils % 80 % Lymphocytes % 10 % Monocytes % 7 % Eosinophils % 1 % Basophils % 0 % Neutrophils # 8.2 H (1.3-7.7) k/uL Lymphocytes # 1.0 (1.0-4.8) k/uL Monocytes # 0.7 (0-1.0) k/uL Eosinophils # 0.1 (0-0.7) k/uL Basophils # 0.0 (0-0.2) k/uL PT (9.0-12.0) sec INR (<1.2) APTT (22.0-30.0) sec Sodium 138 (137-145) mmol/L Potassium 3.7 (3.5-5.1) mmol/L Chloride 102 (98-107) mmol/L Carbon Dioxide 26 (22-30) mmol/L Anion Gap 10 mmol/L BUN 34 H (7-17) mg/dL Creatinine 0.41 L (0.52-1.04) mg/dL Est GFR (CKD-EPI)AfAm >90 (>60 ml/min/1.73 sqM) Est GFR (CKD-EPI)NonAf >90 (>60 ml/min/1.73 sqM) Glucose 100 H (74-99) mg/dL Plasma Lactic Acid Kahlil 1.3 (0.7-2.0) mmol/L Calcium 8.8 (8.4-10.2) mg/dL Total Bilirubin 0.7 (0.2-1.3) mg/dL AST 32 (14-36) U/L ALT 25 (4-34) U/L Alkaline Phosphatase 85 (38-126) U/L Troponin I (0.000-0.034) ng/mL C-Reactive Protein 3.4 H (<1.0) mg/dL NT-Pro-B Natriuret Pep 278 pg/mL Total Protein 6.7 (6.3-8.2) g/dL Albumin 3.5 (3.5-5.0) g/dL 11/18/22 11/18/22 Range/Units 19:33 19:33 WBC (3.8-10.6) k/uL RBC (3.80-5.40) m/uL Hgb (11.4-16.0) gm/dL Hct (34.0-46.0) % MCV (80.0-100.0) fL MCH (25.0-35.0) pg MCHC (31.0-37.0) g/dL RDW (11.5-15.5) % Plt Count (150-450) k/uL MPV Neutrophils % % Lymphocytes % % Monocytes % % Eosinophils % % Basophils % % Neutrophils # (1.3-7.7) k/uL Lymphocytes # (1.0-4.8) k/uL Monocytes # (0-1.0) k/uL Eosinophils # (0-0.7) k/uL Basophils # (0-0.2) k/uL PT 10.9 (9.0-12.0) sec INR 1.0 (<1.2) APTT 26.4 (22.0-30.0) sec Sodium (137-145) mmol/L Potassium (3.5-5.1) mmol/L Chloride (98-107) mmol/L Carbon Dioxide (22-30) mmol/L Anion Gap mmol/L BUN (7-17) mg/dL Creatinine (0.52-1.04) mg/dL Est GFR (CKD-EPI)AfAm (>60 ml/min/1.73 sqM) Est GFR (CKD-EPI)NonAf (>60 ml/min/1.73 sqM) Glucose (74-99) mg/dL Plasma Lactic Acid Kahlil (0.7-2.0) mmol/L Calcium (8.4-10.2) mg/dL Total Bilirubin (0.2-1.3) mg/dL AST (14-36) U/L ALT (4-34) U/L Alkaline Phosphatase (38-126) U/L Troponin I <0.012 (0.000-0.034) ng/mL C-Reactive Protein (<1.0) mg/dL NT-Pro-B Natriuret Pep pg/mL Total Protein (6.3-8.2) g/dL Albumin (3.5-5.0) g/dL Disposition <Tsering Helms - Last Filed: 11/18/22 15:47> Is patient prescribed a controlled substance at d/c from ED?: No Time of Disposition: 21:11 Decision to Admit Reason: Admit from EC Decision Date: 11/18/22 Decision Time: 21:11 <Day Huber - Last Filed: 11/19/22 01:38> Clinical Impression: Edema of both lower extremities, Spinal compression fracture Disposition: ADMITTED IP TO THIS [facility] Condition: Stable
--- NOTE | 2022-11-18 19:22 | XR ---
PROCEDURE: XR foot complete bilateral - 3V DATE AND TIME: 11/18/2022 6:32 PM CLINICAL INDICATION: Pain and swelling TECHNIQUE: Department protocol COMPARISON: None FINDINGS: Right foot: There is no fracture or malalignment. The soft tissues are unremarkable. There are marked and moderate multifocal osteoarthritis changes, most notably in the mid foot articulations. Left foot: There is irregularity and hypersclerosis at the neck of the fifth metatarsal, consistent w ith subacute/remote fracture. There are no acute fractures and no acute malalignments. There are deandre ed and moderate multifocal osteoarthritis changes, most notably in the mid foot articulations. IMPRESSION: 1. Negative for acute fracture or malalignment. 2. Bilateral advanced degenerative joint changes. 3. Subacute/remote left fifth metatarsal neck fracture.
--- NOTE | 2022-11-18 19:26 | XR ---
PROCEDURE: XR tibia fibula bilateral - 4V total DATE AND TIME: 11/18/2022 6:32 PM CLINICAL INDICATION: PHH; Pain and swelling TECHNIQUE: AP and lateral views were obtained from the knee to the ankle. 4 views total. COMPARISON: None FINDINGS: Right leg: Right TKR has unremarkable appearance as seen; the femoral component is not completely vis ualized. There is no fracture or malalignment. The mortise is intact. The soft tissues are unremarkab le. Left leg: Left TKR has unremarkable appearance as seen; the femoral component is not completely visua lized. There is no fracture or malalignment. The mortise is intact. The soft tissues are unremarkable . IMPRESSION: NO ACUTE PROCESS.
--- NOTE | 2022-11-18 19:30 | XR ---
PROCEDURE: XR lumbar spine - 3V DATE AND TIME: 11/18/2022 6:31 PM CLINICAL INDICATION: PHH; Pain TECHNIQUE: 3 views COMPARISON: 08/02/2020 FINDINGS: There are mild and moderate compression fractures at each of the lumbar levels. Some of these are mor e advanced than seen on the prior study of 08/22/2020. There is no definite radiographic evidence of r etropulsion into the spinal canal. There are marked degenerative facet changes at all lumbar levels and at least moderate degenerative d isc changes at all levels. There is mild anterior listhesis of L4 with eccentric L5, stable in appearance when compared to 2020. IMPRESSION: Interval progression of degenerative spine changes since 08/02/2020, as noted.
--- NOTE | 2022-11-18 19:32 | XR ---
PROCEDURE: XR thoracic spine complete - 3V DATE AND TIME: 11/18/2022 6:31 PM CLINICAL INDICATION: PHH; Pain TECHNIQUE: Department protocol COMPARISON: 12/30/2018 FINDINGS: There are multilevel vertebral body compression deformities with marked kyphosis of the thoracic spin e. IMPRESSION: There is mild interval progression of the multilevel vertebral body compression deformities when comp ared with 12/30/2018.
[2022-11-18 19:40] LABS: Basophils % (A) 0 %; Eosinophils # (A) 0.1 k/uL (0-0.7); Eosinophils % (A) 1 %; HCT 44.4 % (34.0-46.0); HGB 14.6 gm/dL (11.4-16.0); Lymphocytes % (A) 10 %; MCH 30.1 pg (25.0-35.0); MCHC 32.9 g/dL (31.0-37.0); MCV 91.7 fL (80.0-100.0); Monocytes # (A) 0.7 k/uL (0-1.0); Monocytes % (A) 7 %; Neutrophils # (A) 8.2 k/uL (1.3-7.7); Neutrophils % (A) 80 %; Platelet Count 389 k/uL (150-450); RBC 4.84 m/uL (3.80-5.40); RDW 13.8 % (11.5-15.5); WBC 10.3 k/uL (3.8-10.6)
[2022-11-18 19:50] LABS: Partial Thromboplastin Time 26.4 sec (22.0-30.0); Prothrombin Time 10.9 sec (9.0-12.0)
[2022-11-18] MEDS ORDERED: HYDROcodone/APAP 7.5-325MG 1 EACH TAB PO ONE (20:00)
[2022-11-18 20:18] LABS: ALT 25 U/L (4-34); AST 32 U/L (14-36); African American GFR (CKD) >90 (>60 ml/min/1.73 sqM); Albumin 3.5 g/dL (3.5-5.0); Alkaline Phosphatase 85 U/L (38-126); Anion Gap 10 mmol/L; Blood Urea Nitrogen 34 mg/dL (7-17); C Reactive Protein 3.4 mg/dL (<1.0); Calcium 8.8 mg/dL (8.4-10.2); Carbon Dioxide 26 mmol/L (22-30); Chloride 102 mmol/L (98-107); Glucose 100 mg/dL (74-99); Non-African American GFR(CKD) >90 (>60 ml/min/1.73 sqM); Potassium 3.7 mmol/L (3.5-5.1); Sodium 138 mmol/L (137-145); Total Bilirubin 0.7 mg/dL (0.2-1.3); Total Protein 6.7 g/dL (6.3-8.2)
[2022-11-18 20:24] LABS: NT-Pro-B-Type Natriuretic Pept 278 pg/mL
[2022-11-18] MEDS ORDERED: NALOXONE 0.4 MG/ML 1 ML VIAL IV PRN (21:12)
[2022-11-18] MEDS ORDERED: ACETAMINOPHEN TAB 325 MG TAB PO PRN (21:32)
--- NOTE | 2022-11-18 21:55 | US ---
EXAMINATION TYPE: US venous doppler duplex LE DATE OF EXAM: 11/18/2022 9:12 PM COMPARISON: NONE CLINICAL INDICATION: Female, 87 years old with history of leg swelling; cellulitis in bilat legs SIDE PERFORMED: Bilateral TECHNIQUE: The lower extremity deep venous system is examined utilizing real time linear array sonog betsy with graded compression, doppler sonography and color-flow sonography. VESSELS IMAGED: Common Femoral Vein Deep Femoral Vein Greater Saphenous Vein * Femoral Vein Popliteal Vein Small Saphenous Vein * Proximal Calf Veins (* superficial vessels) Grayscale, color doppler, spectral doppler imaging performed of the deep veins of the lower extremiti es. There is normal flow, compressibility, vascular waveforms. Right Leg: Negative for DVT Left Leg: Negative for DVT IMPRESSION: No deep venous thrombosis of the bilateral lower extremities.
[2022-11-19 07:44] LABS: Basophils % (A) 0 %; Eosinophils # (A) 0.1 k/uL (0-0.7); Eosinophils % (A) 1 %; HCT 45.5 % (34.0-46.0); HGB 14.5 gm/dL (11.4-16.0); Lymphocytes # (A) 0.9 k/uL (1.0-4.8); Lymphocytes % (A) 10 %; MCH 30.2 pg (25.0-35.0); MCV 94.5 fL (80.0-100.0); Mean Platelet Volume 8.5; Monocytes # (A) 0.6 k/uL (0-1.0); Monocytes % (A) 7 %; Neutrophils # (A) 6.9 k/uL (1.3-7.7); Neutrophils % (A) 79 %; Platelet Count 370 k/uL (150-450); RBC 4.81 m/uL (3.80-5.40); RDW 13.9 % (11.5-15.5); WBC 8.7 k/uL (3.8-10.6)
[2022-11-19 08:06] LABS: African American GFR (CKD) >90 (>60 ml/min/1.73 sqM); Anion Gap 5 mmol/L; Blood Urea Nitrogen 33 mg/dL (7-17); Calcium 8.5 mg/dL (8.4-10.2); Carbon Dioxide 32 mmol/L (22-30); Chloride 101 mmol/L (98-107); Glucose 98 mg/dL (74-99); Non-African American GFR(CKD) 88 (>60 ml/min/1.73 sqM); Potassium 4.1 mmol/L (3.5-5.1); Sodium 138 mmol/L (137-145)
[2022-11-19] MEDS: PANTOPRAZOLE 40 MG TABLET PO SCH (09:41)
[2022-11-19] MEDS: ATORVASTATIN 10 MG TAB PO SCH (09:41)
[2022-11-19] MEDS: ASPIRIN 81 MG PO SCH (09:41)
[2022-11-19] MEDS: CLOPIDOGREL 75 MG TAB PO SCH (09:42)
[2022-11-19] MEDS: HYDROcodone/APAP 5-325MG 1 EACH TAB PO PRN ×3 (09:42→23:49)
[2022-11-19] MEDS: busPIRone HCl 5 MG TAB PO PRN ×2 (09:42→20:41)
[2022-11-19] MEDS: ISOSORBIDE MONONITRATE ER 30 MG TAB.ER.24H PO SCH (09:42)
[2022-11-19] MEDS: FUROSEMIDE 10 MG/ML 4 ML VIAL IV SCH ×2 (09:47→15:23)
[2022-11-20] MEDS: HYDROcodone/APAP 5-325MG 1 EACH TAB PO PRN ×3 (05:33→22:40)
[2022-11-20] MEDS: ASPIRIN 81 MG PO SCH (10:24)
[2022-11-20] MEDS: CLOPIDOGREL 75 MG TAB PO SCH (10:24)
[2022-11-20] MEDS: PANTOPRAZOLE 40 MG TABLET PO SCH (10:24)
[2022-11-20] MEDS: ATORVASTATIN 10 MG TAB PO SCH (10:25)
[2022-11-20] MEDS: ISOSORBIDE MONONITRATE ER 30 MG TAB.ER.24H PO SCH (10:25)
[2022-11-20] MEDS: FUROSEMIDE 10 MG/ML 4 ML VIAL IV SCH ×2 (11:12→16:53)
[2022-11-20] MEDS: busPIRone HCl 5 MG TAB PO PRN (22:40)
[2022-11-21] MEDS: ATORVASTATIN 10 MG TAB PO SCH (09:13)
[2022-11-21] MEDS: PANTOPRAZOLE 40 MG TABLET PO SCH (09:14)
[2022-11-21] MEDS: ISOSORBIDE MONONITRATE ER 30 MG TAB.ER.24H PO SCH (09:14)
[2022-11-21] MEDS: CLOPIDOGREL 75 MG TAB PO SCH (09:14)
[2022-11-21] MEDS: ASPIRIN 81 MG PO SCH (09:14)
[2022-11-21] MEDS: FUROSEMIDE 10 MG/ML 4 ML VIAL IV SCH ×2 (09:34→17:28)
[2022-11-21] MEDS: HYDROcodone/APAP 5-325MG 1 EACH TAB PO PRN ×2 (10:21→19:47)
[2022-11-21] MEDS: busPIRone HCl 5 MG TAB PO PRN (14:25)
[2022-11-22] MEDS: busPIRone HCl 5 MG TAB PO PRN ×2 (01:00→20:28)
[2022-11-22] MEDS: HYDROcodone/APAP 5-325MG 1 EACH TAB PO PRN ×5 (01:00→22:40)
[2022-11-22] MEDS: ISOSORBIDE MONONITRATE ER 30 MG TAB.ER.24H PO SCH (09:16)
[2022-11-22] MEDS: CLOPIDOGREL 75 MG TAB PO SCH (09:16)
[2022-11-22] MEDS: PANTOPRAZOLE 40 MG TABLET PO SCH (09:16)
[2022-11-22] MEDS: ASPIRIN 81 MG PO SCH (09:16)
[2022-11-22] MEDS: ATORVASTATIN 10 MG TAB PO SCH (09:16)
[2022-11-22] MEDS: FUROSEMIDE 10 MG/ML 4 ML VIAL IV SCH ×2 (09:17→16:40)
[2022-11-22] MEDS: IBUPROFEN 400 MG TAB PO PRN ×2 (11:47→20:28)
[2022-11-23] MEDS: HYDROcodone/APAP 5-325MG 1 EACH TAB PO PRN ×4 (04:21→21:59)
[2022-11-23] MEDS: FUROSEMIDE 10 MG/ML 4 ML VIAL IV SCH ×2 (09:21→17:21)
[2022-11-23] MEDS: PANTOPRAZOLE 40 MG TABLET PO SCH (09:21)
[2022-11-23] MEDS: ATORVASTATIN 10 MG TAB PO SCH (09:21)
[2022-11-23] MEDS: ISOSORBIDE MONONITRATE ER 30 MG TAB.ER.24H PO SCH (09:21)
[2022-11-23] MEDS: ASPIRIN 81 MG PO SCH (09:21)
[2022-11-23] MEDS: CLOPIDOGREL 75 MG TAB PO SCH (09:21)
[2022-11-23] MEDS: busPIRone HCl 5 MG TAB PO PRN (21:59)
[2022-11-24] MEDS: IBUPROFEN 400 MG TAB PO PRN ×2 (00:25→14:41)
[2022-11-24] MEDS: PANTOPRAZOLE 40 MG TABLET PO SCH (08:03)
[2022-11-24] MEDS: HYDROcodone/APAP 5-325MG 1 EACH TAB PO PRN ×4 (08:03→20:26)
[2022-11-24] MEDS: ATORVASTATIN 10 MG TAB PO SCH (08:03)
[2022-11-24] MEDS: ASPIRIN 81 MG PO SCH (08:03)
[2022-11-24] MEDS: CLOPIDOGREL 75 MG TAB PO SCH (08:03)
[2022-11-24] MEDS: ISOSORBIDE MONONITRATE ER 30 MG TAB.ER.24H PO SCH (08:03)
[2022-11-24] MEDS: FUROSEMIDE 10 MG/ML 4 ML VIAL IV SCH (08:03)
[2022-11-24] MEDS: busPIRone HCl 5 MG TAB PO PRN ×2 (09:48→16:11)
--- NOTE | 2022-11-24 11:17 | XR ---
EXAMINATION TYPE: XR chest 1V portable DATE OF EXAM: 11/24/2022 Comparison: 06/29/2022 Clinical History: 87-year-old female with cough and congestion Findings: Median sternotomy wires are present. Patchy bibasilar opacities. There appears to be an underlying mo derate or large hiatal hernia projecting behind the heart. Low lung volumes with crowded vascular mar kings. Median sternotomy wires are post-CABG clips. Impression: Hypoventilatory changes with patchy bibasilar atelectasis versus infiltrates. Clinically correlate. U nderlying moderately large hiatal hernia redemonstrated.
[2022-11-24 11:58] VITALS: BMI 24.2
[2022-11-24 12:24] LABS: African American GFR (CKD) >90 (>60 ml/min/1.73 sqM); Anion Gap 9 mmol/L; Blood Urea Nitrogen 26 mg/dL (7-17); Calcium 8.3 mg/dL (8.4-10.2); Carbon Dioxide 31 mmol/L (22-30); Chloride 96 mmol/L (98-107); Glucose 121 mg/dL (74-99); Magnesium 1.8 mg/dL (1.6-2.3); Non-African American GFR(CKD) 87 (>60 ml/min/1.73 sqM); Potassium 3.2 mmol/L (3.5-5.1); Sodium 136 mmol/L (137-145)
[2022-11-24 12:25] LABS: Basophils % (A) 0 %; Eosinophils # (A) 0.1 k/uL (0-0.7); Eosinophils % (A) 1 %; HCT 48.2 % (34.0-46.0); HGB 15.8 gm/dL (11.4-16.0); Lymphocytes # (A) 1.2 k/uL (1.0-4.8); Lymphocytes % (A) 8 %; MCHC 32.7 g/dL (31.0-37.0); MCV 91.8 fL (80.0-100.0); Mean Platelet Volume 7.9; Monocytes # (A) 0.8 k/uL (0-1.0); Monocytes % (A) 5 %; Neutrophils # (A) 11.8 k/uL (1.3-7.7); Neutrophils % (A) 84 %; Platelet Count 482 k/uL (150-450); RBC 5.25 m/uL (3.80-5.40); RDW 13.7 % (11.5-15.5)
[2022-11-24 12:31] LABS: NT-Pro-B-Type Natriuretic Pept 273 pg/mL
[2022-11-24] MEDS ORDERED: MAGNESIUM OXIDE 400 MG TAB PO STA (14:21)
[2022-11-24] MEDS: POTASSIUM CHLORIDE ER 20 MEQ TAB.ER PO SCH ×2 (14:39→16:11)
--- NOTE | 2022-11-24 14:39 | P.PN ---
Subjective Progress Note Date: 11/24/22 Patient is admitted under Dr. Carrillo's services we are picking up coverage today. This is an 87-year-old female who was admitted to the hospital on November 18 secondary to back pain and swelling and skin tears to the bilateral lower extremities. She was recommended by her PCP Dr. Carrillo to come to the ER for further evaluation. Patient is a sedentary at baseline with no prior history of DVT and heart failure. Patient had a venous Doppler completed of her lower extremity which was negative for DVT bilaterally. Additionally she had a foot x-ray bilateral complete which shows bilateral advanced degenerative changes and subacute remote left fifth metatarsal neck fracture. Bilateral tib-fib x-ray shows no acute process. The lumbar spine x-ray shows interval progression of degenerative spinal changes since July 2020. Thoracic spine x-ray shows mild interval progression of the multilevel vertebral body compression deformities as compared to December 2018. She has been continued on pain management with [place] 5 mg every 4 hours. She is receiving IV Lasix twice a day for the peripheral edema. Hemodynamically she is stable her oxygen saturations are slightly low at 92% on room air. Patient is undergoing evaluation by physical therapy and recommending to return home with home care versus subacute rehabilitation recommending 18/10 care. Most recent blood work from the shows a stable hematology panel, electrolytes and kidney function are essentially normal. Troponin was negative. Review of Systems Constitutional: Denied any fatigue denied any fever. Cardio vascular: denied any chest pain, palpitations Gastrointestinal: denied any nausea, vomiting, diarrhea Pulmonary: Denied any shortness of breath cough Neurologic denied any new focal deficits All inpatient medications were reviewed and appropriate changes in these medications as dictated in the interval history and assessment and plan. PHYSICAL EXAMINATION: GENERAL: The patient is alert and oriented x1, not in any acute distress. Well developed, well nourished. HEENT: Pupils are round and equally reacting to light. EOMI. No scleral icterus. No conjunctival pallor. Normocephalic, atraumatic. No pharyngeal erythema. No thyromegaly. CARDIOVASCULAR: S1 and S2 present. No murmurs, rubs, or gallops. PULMONARY: Chest is clear to auscultation, no wheezing or crackles. ABDOMEN: Soft, nontender, nondistended, normoactive bowel sounds. No palpable organomegaly. MUSCULOSKELETAL: No joint swelling or deformity. Kyphosis of the thoracic spine. EXTREMITIES: No cyanosis, clubbing, or pedal edema. NEUROLOGICAL: Gross neurological examination did not reveal any focal deficits. generalized weakness and confusion. SKIN: No rashes. Assessment Chronic back pain with interval progression of compression deformities and kyphosis Underlying dementia at baseline patient is alert x1-2 at baseline with moments of increased confusion Leukocytosis History of diastolic dysfunction with mild acute exacerbation treated with IV lasix and improved Hypokalema likely due to diuresis Mild hypoxia with O2 saturations 92% room air chest xray showing atelectasis/infiltrate patient has been mostly sedentary more likely atelectasis History of DVT Incidental finding of moderately large hiatal hernia History of coronary artery bypass grafting History hypertension History hyperlipidemia GI prophylaxis DVT prophylaxis Full code Plan Incentive spirometer empiric antibiotics and procalcitonin level ordered Check for RSV, Covid, Influenza, Stop the IV lasix Replace potassium and magnesium and repeat labs in the AM PT/OT following discharge to subacute rehab [facility] in the next 24/48 hours The impression and plan of care has been dictated by Dennise Schaeffer Nurse Practitioner as directed. Dr. Imtiaz MD I have performed a history and physical examination and medical decision making of this patient, discussed the same with the dictator, and agree with the dictators assessment and plan as written, documented as a scribe. Based on total visit time, I have performed more than 50% of this visit. Objective - Vital Signs Vital signs: Vital Signs Temp 97.4 F L 11/24/22 07:25 Pulse 55 L 11/24/22 07:25 Resp 16 11/24/22 07:25 BP 126/73 11/24/22 07:25 Pulse Ox 92 L 11/24/22 07:25 FiO2 Intake & Output 11/23/22 11/24/22 11/24/22 18:59 06:59 18:59 Weight 26.5 kg Other: Voiding Method Diaper Diaper Incontinent Incontinent # Voids 1 1 2 # Bowel Movements 1 - Labs CBC & Chem 7: 11/24/22 11:50 11/24/22 11:50 Assessment and Plan Time with Patient: Greater than 30
[2022-11-24] MEDS: DOXYCYCLINE 100 MG CAP PO SCH ×2 (14:49→20:25)
--- NOTE | 2022-11-24 15:27 | PN ---
PROGRESS NOTE DATE OF SERVICE: 11/20/2022 CHIEF COMPLAINT: Lower extremity edema and stasis ulcers. HISTORY OF PRESENT ILLNESS: This lady is quite confused. Vital signs are normal. PHYSICAL EXAMINATION: Unchanged. CHEST: Clear. CARDIAC: Normal. ABDOMEN: Soft. EXTREMITIES: Both legs are now wrapped with Scooter wraps. IMPRESSION: 1. Stasis dermatitis and venous insufficiency with ulcers. 2. Dementia. 3. Presbycusis. PLAN: Continue with local wound care and look into post-hospital rehab. MMODL / IJN: [id number] /
--- NOTE | 2022-11-24 15:27 | CONS ---
CONSULTATION HISTORY OF PRESENT ILLNESS: This is an 87-year-old pleasant female. She came to the emergency room with history of swelling and discomfort in lower extremity. The patient also has a history of chronic back problem. The patient has some blister formation noted on the right and lower extremity, anterior aspect of the monroe. The blister has opened up. PAST MEDICAL HISTORY: The patient has history of coronary artery disease. The patient has history of dementia, hyperlipidemia, hypertension, osteoarthritis. PAST SURGICAL HISTORY: The patient had a bladder surgery done in the past, the patient also had a cholecystectomy and appendectomy, and coronary artery bypass in the past. PHYSICAL EXAMINATION: GENERAL: The patient was seen in her room. NECK: Supple. No bruit appreciated. CHEST: Clear to auscultation. HEART: First and second sounds normal. ABDOMEN: Soft, nontender. VASCULAR: Femorals are 1+ bilaterally. Dorsal pedis palpable on the right side. Left side by the Doppler, the patient has a blister formation noted on the anterior aspect of the right lower extremity, blister has opened up. We have cleaned the wound and we placed an Aquacel Silver. Dressing should be changed on Tuesday, one pillow elevation. Follow with you. MMODL / IJN: [id number] /
--- NOTE | 2022-11-24 15:27 | PN ---
PROGRESS NOTE DATE OF SERVICE: 11/19/2022 CHIEF COMPLAINT: Mental status changes and stasis dermatitis with ulcers. HISTORY OF PRESENT ILLNESS: This lady is stable. Vital signs are normal. She is more confused than she has been. PHYSICAL EXAMINATION: VITAL SIGNS: Normal. CHEST: Clear. CARDIAC: Normal. EXTREMITIES: Lower extremities are slightly less edematous and being dressed by Surgery. IMPRESSION: 1. Mental status changes. 2. Presbycusis. 3. Stasis dermatitis with cellulitis and ulcers. PLAN: Continue with local wound care for lower extremities while trying to manage her edema and work on a discharge plan. MMODL / IJN: [id number] /
--- NOTE | 2022-11-24 15:28 | HP ---
HISTORY AND PHYSICAL CHIEF COMPLAINT: Confusion and lower extremity edema with open sores. HISTORY OF PRESENT ILLNESS: This is another admission for this 87-year-old lady, who has been progressively deteriorating. She lives with a daughter under somewhat contentious situations. The patient has been getting progressively more confused and difficult to manage. She was brought into the office, where she was found to have 4+ edema of the lower extremities with open abrasions and vesicles. She did not seem to be short of breath. It was determined that she should be admitted to the hospital for management of her lower extremity wounds and then probably placed in an extended care facility. REVIEW OF SYSTEMS: She is very hard of hearing, and it is difficult to get a history. She complains of almost everything, but at this time, denies chest pain, abdominal pain, fever, chills, vomiting, etc. Past medical history, family history, and personal and social histories reveal that she is allergic to morphine and naproxen. She has been on BuSpar 5 mg , Protonix 40 twice a day, Nitrostat p.r.n., and simvastatin 20 mg once a day. Remainder of her history is unremarkable. She does not smoke or drink. PHYSICAL EXAMINATION: VITAL SIGNS: Blood pressure is 138/87 with a pulse of 88, respirations of 34, and she is afebrile. GENERAL: She appeared to be fairly well preserved for age. HEAD, EARS, EYES, NOSE, MOUTH, AND THROAT: Normal. NECK: Neck veins are not distended. Carotids cannot be appreciated. CHEST: Demonstrates occasional rales and rhonchi. CARDIAC: Demonstrates sinus tachycardia. ABDOMEN: Soft and nontender. EXTREMITIES: The lower extremities are very edematous and have numerous areas of skin breakdown where vesicles had been and were ruptured. Extremities are normal otherwise, and pulses are good. NEUROLOGIC: She is becoming more and more confused and agitated. DIAGNOSES: She is admitted to the hospital with diagnoses: 1. Progressive dementia. 2. Venous stasis disease with bullae and stasis ulcers. PLAN: 1. Bedrest. 2. IV fluids. 3. Consult Vascular Surgery. 4. PT, OT, and ST. 5. Discharge planning. MMODL / IJN: [id number] /
--- NOTE | 2022-11-24 15:28 | PN ---
PROGRESS NOTE DATE OF SERVICE: 11/19/2022 CHIEF COMPLAINT: Agitation and dementia with lower extremity edema with vesicle formation and transudation. HISTORY OF PRESENT ILLNESS: This lady has became more confused since she has come into the hospital. PHYSICAL EXAMINATION: CHEST: She has good breath sounds bilaterally. CARDIAC: Normal. ABDOMEN: Soft and nontender. EXTREMITIES: Lower extremities have been wrapped with Scooter wraps and being followed by Vascular Surgery. IMPRESSION: 1. Progressive dementia. 2. Venous stasis disease with ulcers. PLAN: Continue to treat lower extremities and look into post-hospital rehab and possibly long- term care. MMODL / IJN: [id number] /
--- NOTE | 2022-11-24 15:29 | HP ---
HISTORY AND PHYSICAL CHIEF COMPLAINT: Dementia, venous stasis disease with ulcers. HISTORY OF PRESENT ILLNESS: This lady is doing well. She has been stable. She is still very confused. PHYSICAL EXAMINATION: GENERAL: She is slightly pale. CHEST: Clear. CARDIAC: Normal. ABDOMEN: Soft, nontender. LEGS: Wrapped. IMPRESSION: 1. Venous stasis disease with infected ulcers. 2. Dementia. PLAN: Continue with local wound care. We will continue to search for discharge arrangement which is more suitable than the 1 she is in. MMODL / IJN: [id number] /
--- NOTE | 2022-11-24 15:29 | HP ---
HISTORY AND PHYSICAL CHIEF COMPLAINT: Dementia, dependent edema with venous stasis disease, cellulitis and ulcers. HISTORY OF PRESENT ILLNESS: This lady is doing fairly well and she is stable, but very confused. Legs are being dressed each day. PHYSICAL EXAMINATION: CHEST: Clear. CARDIAC: Normal. ABDOMEN: Soft, nontender. IMPRESSION: 1. Venous insufficiency, lower extremity with stasis dermatitis and ulcers. 2. Dementia. PLAN: Continue with local wound care to the legs and increase activity as well as working on a discharge plan. MMODL / IJN: [id number] /
--- NOTE | 2022-11-24 15:31 | PN ---
PROGRESS NOTE CHIEF COMPLAINT: 1. Venous stasis disease of lower extremities with stasis dermatitis and ulcers. 2. Dementia. HISTORY OF PRESENT ILLNESS: This lady's condition is about the same. She remains confused and agitated. PHYSICAL EXAMINATION: CHEST: Clear. CARDIAC: Reveals S3 and S4. ABDOMEN: Soft, nontender. LEGS: Wrapped with Scooter wraps. IMPRESSION: 1. Dependent edema with stasis dermatitis and ulcers. 2. Dementia. 3. Delirium. PLAN: Continue with local leg care while waiting for discharge plan. MMODL / IJN: [id number] /
[2022-11-24 19:38] VITALS: RESP 16
[2022-11-24] MEDS: HEPARIN SODIUM,PORCINE 5,000 UNIT/ML 1 ML VIAL SQ SCH (20:25)
[2022-11-24 23:49] LABS: Appearance,Urine Cloudy (Clear); Bacteria,Urine Occasional /hpf; Bilirubin,Urine 1+ (Negative); Blood,Urine Moderate (Negative); Color,Urine Yellow; Glucose,Urine (UA) Negative (Negative); Hyaline Casts,Urine 10 /lpf (0-2); Ketones,Urine Negative (Negative); Leukocyte Esterase,Urine Large (Negative); Mucus,Urine Rare /hpf; Nitrite,Urine Negative (Negative); PH, Urine 5.5 (5.0-8.0); Protein,Urine Trace (Negative); RBC,Urine 15 /hpf (0-5); Specific Gravity,Urine 1.029 (1.001-1.035); Squamous Epithelial Cell,Urine 4 /hpf (0-4); WBC,Urine 30 /hpf (0-5)
[2022-11-25 01:33] VITALS: TEMP 97.5
[2022-11-25] MEDS: HYDROcodone/APAP 5-325MG 1 EACH TAB PO PRN ×2 (01:53→06:01)
[2022-11-25] MEDS: busPIRone HCl 5 MG TAB PO PRN ×2 (06:01→14:34)
[2022-11-25] MEDS: ISOSORBIDE MONONITRATE ER 30 MG TAB.ER.24H PO SCH (07:54)
[2022-11-25] MEDS: DOXYCYCLINE 100 MG CAP PO SCH (07:54)
[2022-11-25] MEDS: CLOPIDOGREL 75 MG TAB PO SCH (07:54)
[2022-11-25] MEDS: ATORVASTATIN 10 MG TAB PO SCH (07:54)
[2022-11-25] MEDS: HEPARIN SODIUM,PORCINE 5,000 UNIT/ML 1 ML VIAL SQ SCH (07:54)
[2022-11-25] MEDS: PANTOPRAZOLE 40 MG TABLET PO SCH (07:54)
[2022-11-25] MEDS: ASPIRIN 81 MG PO SCH (07:54)
[2022-11-25 09:08] LABS: Basophils # (A) 0.08 X 10*3/uL (0.00-0.10); Basophils % (A) 0.6 %; Eosinophils # (A) 0.11 X 10*3/uL (0.04-0.35); Eosinophils % (A) 0.9 %; HCT 47.8 % (37.2-46.3); HGB 15.3 d/dL (12.0-15.0); Lymphocytes # (A) 1.45 X 10*3/uL (0.90-5.00); Lymphocytes % (A) 11.3 %; MCH 29.8 pg (27.0-32.0); MCV 93.2 FL (80.0-97.0); Mean Platelet Volume 10.2 FL (9.5-12.2); Monocytes # (A) 1.04 X 10*3/uL (0.20-1.00); Monocytes % (A) 8.1 %; NRBC Per 100 WBC 0 X 10*3/uL (0.00-0.01); Neutrophils # (A) 10.04 X 10*3/uL (1.80-7.70); Neutrophils % (A) 78.1 %; Platelet Count 519 X 10*3/uL (140-440); RBC 5.13 X 10*6/uL (4.10-5.20); RDW 14.5 % (11.5-14.5); WBC 12.85 X 10*3/uL (4.50-10.00)
[2022-11-25 09:37] LABS: BUN/Creat Ratio 50.33 Ratio (12.00-20.00); Blood Urea Nitrogen 30.2 mg/dL (9.0-27.0); Carbon Dioxide 30.2 mmol/L (21.6-31.8); Chloride 101 mmol/L (96-109); Glucose 100 mg/dL (70-110); Magnesium 1.9 mg/dL (1.5-2.4); Potassium 4.8 mmol/L (3.5-5.5); Sodium 141 mmol/L (135-145)
[2022-11-25 11:59] VITALS: BP 114/68; PULSE 92
--- NOTE | 2022-11-25 14:36 | P.DS ---
Providers Date of admission: 11/18/22 21:34 Attending physician: Scott Carrillo Consults: 11/19/22 10:43 Consult Physician Routine Consulting Provider: Grover Garcia Consult Reason/Comments: wound care Do you want consulting provider notified?: Yes Primary care physician: Scott Carrillo Hospital Course: Final Diagnosis Chronic back pain with interval progression of compression deformities and kyphosis Underlying dementia at baseline patient is alert x1-2 at baseline with moments of increased confusion Leukocytosis History of diastolic dysfunction with mild acute exacerbation treated with IV lasix and improved Peripheral edema from above Chronic venous stasis ulcer exacerbated by increased peripheral edema no surrounding erythema or cellulitis. Hypokalema likely due to diuresis Mild hypoxia with O2 saturations 92% room air chest xray showing atelectasis/infiltrate patient has been mostly sedentary more likely atelectasis History of DVT Incidental finding of moderately large hiatal hernia History of coronary artery bypass grafting History hypertension History hyperlipidemia GI prophylaxis DVT prophylaxis Full code Discharge Disposition Patient is stable for discharge to subacute rehab. Patient can continue on oral doxycycline for 4 more days although the venous stasis ulcers don't look much infected. Peripheral edema is significantly improved and would recommend to discharge on oral lasix 20 mg BID. Patient to continue with incentive spirometer 10 x an hour while awake. Wound care to the bilateral lower extremity wounds with Aquacel dry and Kerlix changes in 48 hours and patient to see Dr. Garcia in the wound care or office on Tuesday. Need to make an appointment. Hospital Course Patient is admitted under Dr. Carrillo's services with medical history of h ypertension, hyperlipidemia, DVT, CABG, chronic heart failure and diastolic dysfunction. This is an 87-year-old female who was admitted to the hospital on November 18 secondary to back pain and swelling and skin tears to the bilateral lower extremities. She was recommended by her PCP Dr. Carrillo to come to the ER for further evaluation due to 4+ pitting edema and bilateral LE ulceration/ wounds that appear as may have been skin tears Patient is a sedentary at baseline with no prior history of DVT and heart failure. Patient had a venous Doppler completed of her lower extremity which was negative for DVT bilaterally. Additionally she had a foot x-ray bilateral complete which shows bilateral advanced degenerative changes and subacute remote left fifth metatarsal neck fracture. Bilateral tib-fib x-ray shows no acute process. The lumbar spine x- ray shows interval progression of degenerative spinal changes since July 2020. Thoracic spine x-ray shows mild interval progression of the multilevel vertebral body compression deformities as compared to December 2018. She has been continued on pain management with [place] 5 mg every 4 hours. Patient received IV Lasix twice a day for the peripheral edema. Felice also was evaluated by Dr Garcia with vascular surgery and wound care and recommended for aqucel silver and kerlex to the bilateral lower extremity wounds to change every 48 hours and he we will follow up with the patient on discharge. Hemodynamically she is stable her oxygen saturations are slightly low at 92% on room air. White count did increase since admission checked viral panel was negative for covid, influenza or RSV. Her urinalysis was abnormal but patient is denying any urinary symptoms no dysuria, no urgency or frequency. Chest xray was checked for the hypoxia showing Hypoventilatory changes with patchy bibasilar atelectasis versus infiltrate. Clinically correlate underlying moderately large hiatal hernia redemonstrated. Patient was given PO doxycycline. procalcitonin level was normal and chest xray reviewed felt this was more a residual small pleural effusion and her lasix was increased to 20 BID on discharge. Patient is also given an incentive spirometer. Today she is denying chest pain, denying shortness of breath. No nausea vomiting or diarrhea. Peripheral edema has resolved. She has 2 ulcerations one on the right monroe one on the left monroe, wound care in place. NO surrounding erythema and not much drainage from the wounds. Her lungs are clear, S1 S2 auscultated, abdomen is soft and nontender. Focal neurological exam negative she is alert x 2 at baseline. Most recent labs showing white count of 12.85, hemoglobin 14.3, sodium 141, potassium 4.8, BUN 30, creatinine 0.6, mag 1.9. ProBNP 273. Hemodynamically she is stable. Please see medication reconciliation for a list of current medication. Thank you for allowing us to participate in the care of this patient. The impression and plan of care has been dictated by Dennise Schaeffer, Nurse Practitioner as directed. Dr. Imtiaz MD I have performed a history and physical examination and medical decision making of this patient, discussed the same with the dictator, and agree with the dictators assessment and plan as written, documented as a scribe. Based on total visit time, I have performed more than 50% of this visit. Patient Condition at Discharge: Fair Plan - Discharge Summary Discharge Rx Participant: No New Discharge Prescriptions: New HYDROcodone/APAP 5-325MG [[place] 5-325] 1 each PO Q4HR PRN #4 tab PRN Reason: Moderate Pain (Scale 4 To 6) Doxycycline [Vibramycin] 100 mg PO BID 4 Days #8 capsule Ibuprofen [Motrin] 400 mg PO Q6HR PRN tab PRN Reason: Mild Pain Or Fever > 100.5 Acetaminophen Tab [Tylenol] 650 mg PO Q6HR PRN tab PRN Reason: Mild Pain Or Fever > 100.5 Famotidine [Pepcid] 20 mg PO BID #60 tablet Continue Clopidogrel [Plavix] 75 mg PO DAILY #30 tab Vit C/E/Zn/Coppr/Lutein/Zeaxan [Preservision Areds 2 Softgel] 1 cap PO BID Pantoprazole [Protonix] 40 mg PO DAILY Alendronate Sodium [Fosamax] 70 mg PO Q7D Aspirin [Adult Low Dose Aspirin EC] 81 mg PO DAILY busPIRone HCl [Buspar] 5 mg PO TID PRN PRN Reason: Anxiety Simvastatin [Zocor] 20 mg PO DAILY Isosorbide Mononitrate ER [Imdur] 30 mg PO DAILY #30 tab Multivitamins, Thera [Multivitamin (formulary)] 1 tab PO DAILY Changed Furosemide [Lasix] 20 mg PO 0900,1600 #0 Discharge Medication List Alendronate Sodium [Fosamax] 70 mg PO Q7D 11/26/21 [History] Pantoprazole [Protonix] 40 mg PO DAILY 11/26/21 [History] Aspirin [Adult Low Dose Aspirin EC] 81 mg PO DAILY 03/22/22 [History] Simvastatin [Zocor] 20 mg PO DAILY 05/29/22 [History] busPIRone HCl [Buspar] 5 mg PO TID PRN 05/29/22 [History] Clopidogrel [Plavix] 75 mg PO DAILY #30 tab 05/31/22 [Rx] Isosorbide Mononitrate ER [Imdur] 30 mg PO DAILY #30 tab 05/31/22 [Rx] Multivitamins, Thera [Multivitamin (formulary)] 1 tab PO DAILY 11/18/22 [History] Vit C/E/Zn/Coppr/Lutein/Zeaxan [Preservision Areds 2 Softgel] 1 cap PO BID 11/18/22 [History] Acetaminophen Tab [Tylenol] 650 mg PO Q6HR PRN tab 11/25/22 [Rx] Doxycycline [Vibramycin] 100 mg PO BID 4 Days #8 capsule 11/25/22 [Rx] Famotidine [Pepcid] 20 mg PO BID #60 tablet 11/25/22 [Rx] Furosemide [Lasix] 20 mg PO 0900,1600 #0 11/25/22 [Rx] HYDROcodone/APAP 5-325MG [[place] 5-325] 1 each PO Q4HR PRN #4 tab 11/25/22 [Rx] Ibuprofen [Motrin] 400 mg PO Q6HR PRN tab 11/25/22 [Rx] Follow up Appointment(s)/Referral(s): Scott Carrillo MD [Primary Care Provider] - 1-2 days Thong Cage MD [STAFF PHYSICIAN] - 1 Week Grover Garcia MD [STAFF PHYSICIAN] - 11/29/22 Ambulatory/Diagnostic Orders: Basic Metabolic Panel [LAB.AMB] Time Frame: 3 Days, Location: None Selected Activity/Diet/Wound Care/Special Instructions: Continue local wound care with aquacel dry and wrap in kerlex to the bilateral lower extremity wound and follow up with Dr. Garcia at the wound center on Tuesday. Continue with incentive spirometer 10 x an hr while awake. Discharge Disposition: TRANSFER TO SNF/ECF
== END 2022-11-25 15:57 | DRG 291 ==
LOC: EC 15:38 → 5NMEDONC 21:34
PROVIDERS: ADMIT Family Medicine; ATTEND Family Medicine
DX: I11.0 Hypertensive heart disease with heart failure (principal); I50.31 Acute diastolic (congestive) heart failure; F03.911 Unspecified dementia, unspecified severity, with agitation; L03.90 Cellulitis, unspecified; L97.919 Non-pressure chronic ulcer of unspecified part of right lower leg with unspecified severity; L97.929 Non-pressure chronic ulcer of unspecified part of left lower leg with unspecified severity; M48.50XA Collapsed vertebra, not elsewhere classified, site unspecified, initial encounter for fracture; E78.5 Hyperlipidemia, unspecified; G89.29 Other chronic pain; H91.10 Presbycusis, unspecified ear; I25.10 Atherosclerotic heart disease of native coronary artery without angina pectoris; I83.009 Varicose veins of unspecified lower extremity with ulcer of unspecified site; I87.2 Venous insufficiency (chronic) (peripheral); I87.8 Other specified disorders of veins; K44.9 Diaphragmatic hernia without obstruction or gangrene; M19.90 Unspecified osteoarthritis, unspecified site; M40.209 Unspecified kyphosis, site unspecified; R09.02 Hypoxemia; E87.6 Hypokalemia; T50.2X5A Adverse effect of carbonic-anhydrase inhibitors, benzothiadiazides and other diuretics, initial encounter; Z20.822 Contact with and (suspected) exposure to COVID-19; Z79.02 Long term (current) use of antithrombotics/antiplatelets; Z79.82 Long term (current) use of aspirin; Z79.83 Long term (current) use of bisphosphonates; Z82.49 Family history of ischemic heart disease and other diseases of the circulatory system; Z86.718 Personal history of other venous thrombosis and embolism; Z95.1 Presence of aortocoronary bypass graft
CPT/HCPCS: 36415; 71045; 72072; 72100; 80048; 80053; 81001; 83605; 83735; 83880; 84145; 84484; 85025; 85610; 85730; 86140; 87077; 87086; 87186; 87636; 93970; 96374; 99285

== ENCOUNTER → 2022-11-18 | Outpatient (CLI) | payer MEDICARE, BC ==
[2022-11-18 21:03] LABS: ALT 25 U/L (8-44); AST 27 U/L (13-35); Albumin 3.7 d/dL (3.8-4.9); Albumin/Globulin Ratio 1.37 Ratio (1.60-3.17); Alkaline Phosphatase 75 U/L (41-126); Blood Urea Nitrogen 28.4 mg/dL (9.0-27.0); Carbon Dioxide 29.4 mmol/L (21.6-31.8); Chloride 101 mmol/L (96-109); Globulin 2.7 d/dL (1.6-3.3); Glucose 90 mg/dL (70-110); Potassium 4.1 mmol/L (3.5-5.5); Sodium 142 mmol/L (135-145); Total Bilirubin 0.6 mg/dL (0.3-1.2); Total Protein 6.4 d/dL (6.2-8.2)
== END | disposition home or self-care (01) ==
LOC: LABWHC1 11:10
PROVIDERS: ATTEND Internal Medicine Interventional Cardiology
DX: Z95.1 Presence of aortocoronary bypass graft (principal)
CPT/HCPCS: 36415; 80053

== ENCOUNTER 2023-01-03 10:06 | Inpatient (IN) | payer MEDICARE, BC ==
--- NOTE | 2023-01-03 12:57 | ED ---
General Adult HPI - General Chief complaint: Extremity Injury, Lower Stated complaint: right leg cellulitis Time Seen by Provider: 01/03/23 12:10 Source: patient, family, RN notes reviewed Mode of arrival: wheelchair Limitations: altered mental status - History of Present Illness Initial comments: Patient is a pleasant 87-year-old female presenting to the emergency department with concern for right leg infection. Patient does have history of previous wound. Patient is having significant pain in this area. Right lower leg anteriorly. Patient also has general weakness and difficulty taking care of herself. Family is concerned the patient will need placement. Patient has increased weakness and decreased appetite. - Related Data Home Medications Medication Instructions Recorded Confirmed Alendronate Sodium [Fosamax] 70 mg PO Q7D 11/26/21 11/18/22 Pantoprazole [Protonix] 40 mg PO DAILY 11/26/21 11/18/22 Aspirin [Adult Low Dose Aspirin EC] 81 mg PO DAILY 03/22/22 11/18/22 Simvastatin [Zocor] 20 mg PO DAILY 05/29/22 11/18/22 busPIRone HCl [Buspar] 5 mg PO TID PRN 05/29/22 11/18/22 Multivitamins, Thera [Multivitamin 1 tab PO DAILY 11/18/22 11/18/22 (formulary)] Vit C/E/Zn/Coppr/Lutein/Zeaxan 1 cap PO BID 11/18/22 11/18/22 [Preservision Areds 2 Softgel] Previous Rx's Medication Instructions Recorded Clopidogrel [Plavix] 75 mg PO DAILY #30 tab 05/31/22 Isosorbide Mononitrate ER [Imdur] 30 mg PO DAILY #30 tab 05/31/22 Acetaminophen Tab [Tylenol] 650 mg PO Q6HR PRN tab 11/25/22 Doxycycline [Vibramycin] 100 mg PO BID 4 Days #8 capsule 11/25/22 Famotidine [Pepcid] 20 mg PO BID #60 tablet 11/25/22 Furosemide [Lasix] 20 mg PO 0900,1600 #0 11/25/22 HYDROcodone/APAP 5-325MG [[place] 1 each PO Q4HR PRN #4 tab 11/25/22 5-325] Ibuprofen [Motrin] 400 mg PO Q6HR PRN tab 08/31/23 Allergies Allergy/AdvReac Type Severity Reaction Status Date / Time No Known Allergies Allergy Verified 01/03/23 10:31 Review of Systems ROS Statement: Those systems with pertinent positive or pertinent negative responses have been documented in the HPI. ROS Other: All systems not noted in ROS Statement are negative. Constitutional: Denies: fever Eyes: Denies: eye pain ENT: Denies: ear pain Respiratory: Denies: cough Cardiovascular: Denies: chest pain Endocrine: Reports: fatigue Skin: Reports: as per HPI Past Medical History Past Medical History: Coronary Artery Disease (CAD), Dementia, Hyperlipidemia, Hypertension, Osteoarthritis (OA) Additional Past Medical History / Comment(s): right renal cyst; fall at home 04/30/20, admitted on 11/18/22 with acute bilat. lower extremity edema and back pain History of Any Multi-Drug Resistant Organisms: None Reported Past Surgical History: Appendectomy, Bladder Surgery, Cholecystectomy, Coronary Bypass/CABG, Hernia Repair, Orthopedic Surgery, Tubal Ligation Additional Past Surgical History / Comment(s): Bilat knee replace, bilat cataracts, CABG 3 vessel 12 years ago, D and C Past Anesthesia/Blood Transfusion Reactions: No Reported Reaction Additional Past Anesthesia/Blood Transfusion Reaction / Comment(s): stares that sometimes when they "put me out it is hard to wake up" Past Psychological History: No Psychological Hx Reported Smoking Status: Never smoker Past Alcohol Use History: None Reported Past Drug Use History: None Reported - Past Family History Mother Family Medical History: Coronary Artery Disease (CAD) Father Family Medical History: Coronary Artery Disease (CAD) General Exam Limitations: no limitations General appearance: alert, in no apparent distress Eye exam: Present: normal appearance Respiratory exam: Present: normal lung sounds bilaterally Cardiovascular Exam: Present: regular rate, normal rhythm GI/Abdominal exam: Present: soft. Absent: tenderness Extremities exam: Present: other (Right lower leg) Neurological exam: Present: alert Psychiatric exam: Present: normal affect, normal mood Skin exam: Present: other (Right anterior monroe wound stage II approximately 5 x 3 cm. There is some erythema.) Course Vital Signs 01/03/23 10:21 Temperature 97.6 F Pulse Rate 95 Respiratory 18 Rate Blood Pressure 120/78 O2 Sat by Pulse 98 Oximetry EKG Findings - EKG Results: EKG: interpreted by ERMD (Left axis. Right bundle branch block. Nonspecific T waves), sinus rhythm Medical Decision Making - Medical Decision Making Was pt. sent in by a medical professional or institution (, [facility], PROTECTIVE SIGNAL INSTALLER, urgent care, hospital, or jail...) When possible be specific @ -Family states patient was sent in by Dr. William's office Did you speak to anyone other than the patient for history (EMS, parent, family, police, friend...)? What history was obtained from this source @ -Family provides majority of history is patient is a poor historian Did you review nursing and triage notes (agree or disagree)? Why? @ -I reviewed and agree with nursing and triage notes Were old charts reviewed (outside hosp., previous admission, EMS record, old EKG, old radiological studies, urgent care reports/EKG's, jail records)? Report findings @ -No old charts were reviewed Differential Diagnosis (chest pain, altered mental status, abdominal pain women, abdominal pain men, vaginal bleeding, weakness, fever, dyspnea, syncope, headache, dizziness, GI bleed, back pain, seizure, CVA, palpatations, mental health, musculoskeletal)? @ -Differential Weakness: Hypoglycemia, shock, sepsis, hyponatremia, anemia, infection, FL, ETOH, adverse medicine reaction, overdose, stroke, this is not meant to be an all-inclusive list. EKG interpreted by me (3pts min.). @ -As above X-rays interpreted by me (1pt min.). @ -Right tib-fib x-ray shows no fracture. Some soft tissue edema. Two-view chest x-ray shows large hiatal hernia. Postoperative changes. CT interpreted by me (1pt min.). @ -None done U/S interpreted by me (1pt. min.). @ -None done What testing was considered but not performed or refused? (CT, X-rays, U/S, labs)? Why? @ -None What meds were considered but not given or refused? Why? @ -None Did you discuss the management of the patient with other professionals (professionals i.e. [facility] Albarran, PROTECTIVE SIGNAL INSTALLER, lab, RT, psych nurse, social research assistant, piece goods clerk, teacher, sea air land officer, spring encaser)? Give summary @ -Dr. William paged for admission Was smoking cessation discussed for >3mins.? @ -No Was critical care preformed (if so, how long)? @ -No Were there social determinants of health that impacted care today? How? (Homelessness, low income, unemployed, alcoholism, drug addiction, transportation, low edu. Level, literacy, decrease access to med. care, custodial, rehab)? @ -No Was there de-escalation of care discussed even if they declined (Discuss DNR or withdrawal of care, Hospice)? DNR status @ -No What co-morbidities impacted this encounter? (DM, HTN, Smoking, COPD, CAD, Cancer, CVA, ARF, Chemo, Hep., AIDS, mental health diagnosis, sleep apnea, morbid obesity)? @ -None Was patient admitted / discharged? Hospital course, mention meds given and route, prescriptions, significant lab abnormalities, going to OR and other pertinent info. @ -Patient and family updated on results and plan. Patient will be admitted and will likely need placement. Undiagnosed new problem with uncertain prognosis? @ -No Drug Therapy requiring intensive monitoring for toxicity (Heparin, Nitro, Insulin, Cardizem)? @ -No Were any procedures done? @ -No Diagnosis/symptom? @ -Cellulitis, weakness Acute, or Chronic, or Acute on Chronic? @ -Acute, acute Uncomplicated (without systemic symptoms) or Complicated (systemic symptoms)? @ -default Side effects of treatment? @ -No Exacerbation, Progression, or Severe Exacerbation? @ -No Poses a threat to life or bodily function? How? (Chest pain, [place], FL, pneumonia, PE, COPD, DKA, ARF, appy, cholecystitis, CVA, Diverticulitis, Homicidal, Suicidal, threat to staff... and all critical care pts) @ -No - Lab Data Result diagrams: 01/03/23 12:52 01/03/23 12:52 Lab Results 01/03/23 01/03/23 01/03/23 Range/Units 12:52 12:52 12:52 WBC 14.3 H (3.8-10.6) k/uL RBC 4.65 (3.80-5.40) m/uL Hgb 14.4 (11.4-16.0) gm/dL Hct 44.1 (34.0-46.0) % MCV 94.9 (80.0-100.0) fL MCH 31.0 (25.0-35.0) pg MCHC 32.6 (31.0-37.0) g/dL RDW 14.4 (11.5-15.5) % Plt Count 485 H (150-450) k/uL MPV 8.3 Neutrophils % 82 % Lymphocytes % 10 % Monocytes % 6 % Eosinophils % 1 % Basophils % 0 % Neutrophils # 11.7 H (1.3-7.7) k/uL Lymphocytes # 1.4 (1.0-4.8) k/uL Monocytes # 0.9 (0-1.0) k/uL Eosinophils # 0.1 (0-0.7) k/uL Basophils # 0.0 (0-0.2) k/uL Sodium 137 (137-145) mmol/L Potassium 4.0 (3.5-5.1) mmol/L Chloride 103 (98-107) mmol/L Carbon Dioxide 27 (22-30) mmol/L Anion Gap 7 mmol/L BUN 21 H (7-17) mg/dL Creatinine 0.34 L (0.52-1.04) mg/dL Est GFR (CKD-EPI)AfAm >90 (>60 ml/min/1.73 sqM) Est GFR (CKD-EPI)NonAf >90 (>60 ml/min/1.73 sqM) Glucose 98 (74-99) mg/dL Plasma Lactic Acid Kahlil 1.7 (0.7-2.0) mmol/L Calcium 8.5 (8.4-10.2) mg/dL Total Bilirubin 0.7 (0.2-1.3) mg/dL AST 37 H (14-36) U/L ALT 24 (4-34) U/L Alkaline Phosphatase 73 (38-126) U/L C-Reactive Protein <0.5 (<1.0) mg/dL Total Protein 6.6 (6.3-8.2) g/dL Albumin 3.4 L (3.5-5.0) g/dL Disposition Clinical Impression: Cellulitis Disposition: ADMITTED IP TO THIS HOSP Is patient prescribed a controlled substance at d/c from ED?: No Referrals: Scott Carrillo MD [Primary Care Provider] - 1-2 days Time of Disposition: 14:44
[2023-01-03 13:10] LABS: Basophils % (A) 0 %; Eosinophils # (A) 0.1 k/uL (0-0.7); Eosinophils % (A) 1 %; HCT 44.1 % (34.0-46.0); HGB 14.4 gm/dL (11.4-16.0); Lymphocytes # (A) 1.4 k/uL (1.0-4.8); Lymphocytes % (A) 10 %; MCHC 32.6 g/dL (31.0-37.0); MCV 94.9 fL (80.0-100.0); Mean Platelet Volume 8.3; Monocytes # (A) 0.9 k/uL (0-1.0); Monocytes % (A) 6 %; Neutrophils # (A) 11.7 k/uL (1.3-7.7); Neutrophils % (A) 82 %; Platelet Count 485 k/uL (150-450); RBC 4.65 m/uL (3.80-5.40); RDW 14.4 % (11.5-15.5); WBC 14.3 k/uL (3.8-10.6)
[2023-01-03 13:31] LABS: ALT 24 U/L (4-34); AST 37 U/L (14-36); African American GFR (CKD) >90 (>60 ml/min/1.73 sqM); Albumin 3.4 g/dL (3.5-5.0); Alkaline Phosphatase 73 U/L (38-126); Anion Gap 7 mmol/L; Blood Urea Nitrogen 21 mg/dL (7-17); C Reactive Protein <0.5 mg/dL (<1.0); Calcium 8.5 mg/dL (8.4-10.2); Carbon Dioxide 27 mmol/L (22-30); Chloride 103 mmol/L (98-107); Glucose 98 mg/dL (74-99); Non-African American GFR(CKD) >90 (>60 ml/min/1.73 sqM); Sodium 137 mmol/L (137-145); Total Bilirubin 0.7 mg/dL (0.2-1.3); Total Protein 6.6 g/dL (6.3-8.2)
--- NOTE | 2023-01-03 13:35 | XR ---
EXAMINATION TYPE: XR tibia fibula RT DATE OF EXAM: 01/03/2023 1:24 PM CLINICAL INDICATION:Female, 87 years old with history of infection; COMPARISON: 11/18/2022 TECHNIQUE: XR tibia fibula RT; tibia/fibula was examined in AP and lateral projections. FINDINGS: Pitting edema throughout the leg.. No evidence of fracture. The osseous structures appear i ntact. There is total arthroplasty changes of the right knee. Atherosclerosis of the arterial vascula ture. Calcaneal plantar spurring. Osteoarthrosis changes of the midfoot joints with subchondral scler otic change. No osseous erosion identified. IMPRESSION: No evidence of acute fracture. Soft tissue edema throughout the leg which could represent infection versus systemic causes with thir d spacing of fluid. No evidence for organizing fluid collection or osseous erosion.
--- NOTE | 2023-01-03 13:38 | XR ---
EXAMINATION TYPE: XR chest 2V DATE OF EXAM: 01/03/2023 1:24 PM CLINICAL INDICATION:Female, 87 years old with history of weak; [facility] COMPARISON: Chest radiographs from 11/24/2022, CT 05/29/2022 TECHNIQUE: XR chest 2V Frontal and lateral views of the chest. FINDINGS: Lungs/Pleura: There is no evidence of pleural effusion, focal consolidation, or pneumothorax. Pulmonary vascularity: Unremarkable. Heart/mediastinum: Cardiomediastinal silhouette is unremarkable. Atherosclerotic calcifications are seen in the aorta. Musculoskeletal: Degenerative changes of the shoulder joints. Midline sternotomy wires are noted. Large hiatal hernia. IMPRESSION: 1. Low lung volumes with a generalized hazy appearance which could represent atelectasis versus pulm onary edema correlate with serum BNP. 2. Large hiatal hernia seen on prior. 3.
[2023-01-03] MEDS ORDERED: ACETAMINOPHEN TAB 325 MG TAB PO PRN (14:44)
[2023-01-03] MEDS ORDERED: NALOXONE 0.4 MG/ML 1 ML VIAL IV PRN (14:44)
[2023-01-03] MEDS: SODIUM CHLORIDE 0.9% 1,000 ML IV SCH (15:36)
[2023-01-03] MEDS: MORPHINE SULFATE 4 MG/ML SYRINGE IV PRN (15:37)
[2023-01-03 16:12] LABS: Erythrocyte Sedimentation Rate 51 mm/Hr (0-30)
[2023-01-04 08:58] LABS: BUN/Creat Ratio 47.75 Ratio (12.00-20.00); Blood Urea Nitrogen 19.1 mg/dL (9.0-27.0); Calcium 8.5 mg/dL (8.7-10.3); Carbon Dioxide 28.1 mmol/L (21.6-31.8); Chloride 106 mmol/L (96-109); Glucose 92 mg/dL (70-110); Sodium 142 mmol/L (135-145)
[2023-01-04 09:57] LABS: Basophils # (A) 0.05 X 10*3/uL (0.00-0.10); Basophils % (A) 0.4 %; Eosinophils # (A) 0.16 X 10*3/uL (0.04-0.35); Eosinophils % (A) 1.4 %; HCT 41.8 % (37.2-46.3); HGB 13.2 d/dL (12.0-15.0); Lymphocytes # (A) 1.31 X 10*3/uL (0.90-5.00); Lymphocytes % (A) 11.7 %; MCH 29.9 pg (27.0-32.0); MCHC 31.6 d/dL (32.0-37.0); MCV 94.6 FL (80.0-97.0); Mean Platelet Volume 11.1 FL (9.5-12.2); Monocytes # (A) 0.89 X 10*3/uL (0.20-1.00); Monocytes % (A) 7.9 %; NRBC Per 100 WBC 0 X 10*3/uL (0.00-0.01); Neutrophils # (A) 8.75 X 10*3/uL (1.80-7.70); Neutrophils % (A) 78.1 %; Platelet Count 396 X 10*3/uL (140-440); RBC 4.42 X 10*6/uL (4.10-5.20); RBC Morphology Normal (Normal); RDW 15.7 % (11.5-14.5); WBC 11.22 X 10*3/uL (4.50-10.00)
[2023-01-04] MEDS: SODIUM CHLORIDE 0.9% 1,000 ML IV SCH (10:09)
[2023-01-04] MEDS: traMADol 50 MG TAB PO PRN (10:10)
[2023-01-04] MEDS: LORazepam 2 MG/ML INJ IV PRN (13:42)
--- NOTE | 2023-01-04 16:12 | P.GSCN ---
History of Present Illness History of present illness: 87-year-old white female patient was brought in by the family patient has history of weakness dementia and patient also has a wound on the right lower leg lateral aspect patient complained of some pain and discomfort x-ray shows no evidence of fracture Patient was seen in the room patient complaining of some discomfort right lower leg Chest is clear good and both lungs first and second sound present Abdomen soft nontender Femorals are 1+ bilateral right lower extremity there is a superficial wound no evidence of discharge or redness noted wound was cleaned and we placed medihoney gel patient IV antibiotic at this point patient does not need any debridement we'll continue with medihoney gel which should be changed every 48 hours Past Medical History Past Medical History: Coronary Artery Disease (CAD), Dementia, Hyperlipidemia, Hypertension, Osteoarthritis (OA) Additional Past Medical History / Comment(s): right renal cyst; fall at home 04/30/20, admitted on 11/18/22 with acute bilat. lower extremity edema and back pain History of Any Multi-Drug Resistant Organisms: None Reported Past Surgical History: Appendectomy, Bladder Surgery, Cholecystectomy, Coronary Bypass/CABG, Hernia Repair, Orthopedic Surgery, Tubal Ligation Additional Past Surgical History / Comment(s): Bilat knee replace, bilat cataracts, CABG 3 vessel 12 years ago, D and C Past Anesthesia/Blood Transfusion Reactions: No Reported Reaction Additional Past Anesthesia/Blood Transfusion Reaction / Comm: stares that s ometimes when they "put me out it is hard to wake up" Past Psychological History: No Psychological Hx Reported Smoking Status: Never smoker Past Alcohol Use History: None Reported Past Drug Use History: None Reported - Past Family History Mother Family Medical History: Coronary Artery Disease (CAD) Father Family Medical History: Coronary Artery Disease (CAD) Medications and Allergies Home Medications Medication Instructions Recorded Confirmed Type Alendronate Sodium [Fosamax] 70 mg PO Q7D 11/26/21 01/03/23 History Pantoprazole [Protonix] 40 mg PO DAILY 11/26/21 01/03/23 History Aspirin [Adult Low Dose Aspirin EC] 81 mg PO DAILY 03/22/22 01/03/23 History Isosorbide Mononitrate ER [Imdur] 30 mg PO DAILY #30 tab 05/31/22 01/03/23 Rx Vit C/E/Zn/Coppr/Lutein/Zeaxan 1 cap PO BID 11/18/22 01/03/23 History [Preservision Areds 2 Softgel] Famotidine [Pepcid] 20 mg PO BID #60 tablet 11/25/22 01/03/23 Rx Atorvastatin [Lipitor] 10 mg PO DAILY 01/03/23 01/03/23 History Furosemide [Lasix] 20 mg PO BID 01/03/23 01/03/23 History HYDROcodone/APAP 5-325MG [Handley 1 tab PO Q8H PRN 01/03/23 01/03/23 History 5-325] Allergies Allergy/AdvReac Type Severity Reaction Status Date / Time No Known Allergies Allergy Verified 01/03/23 15:23 Surgical - Exam Vital Signs Temp Pulse Resp BP Pulse Ox 97.6 F 95 18 120/78 98 01/03/23 10:21 01/03/23 10:21 01/03/23 10:21 01/03/23 10:21 01/03/23 10:21 Results - Labs 01/04/23 05:39 01/04/23 05:39 Abnormal Lab Results - Last 24 Hours (Table) 01/03/23 01/04/23 01/04/23 Range/Units 12:52 05:39 05:39 WBC 11.22 H (4.50-10.00) X 10*3/uL MCHC 31.6 L (32.0-37.0) d/dL RDW 15.7 H (11.5-14.5) % Neutrophils # 8.75 H (1.80-7.70) X 10*3/uL ESR 51 H (0-30) mm/Hr Creatinine 0.4 L (0.6-1.5) mg/dL BUN/Creatinine Ratio 47.75 H (12.00-20.00) Ratio Calcium 8.5 L (8.7-10.3) mg/dL Diabetes panel 01/04/23 Range/Units 05:39 Sodium 142 (135-145) mmol/L Potassium 4.0 (3.5-5.5) mmol/L Chloride 106 (96-109) mmol/L Carbon Dioxide 28.1 (21.6-31.8) mmol/L BUN 19.1 (9.0-27.0) mg/dL Creatinine 0.4 L (0.6-1.5) mg/dL Glucose 92 (70-110) mg/dL Calcium 8.5 L (8.7-10.3) mg/dL Calcium panel 01/04/23 Range/Units 05:39 Calcium 8.5 L (8.7-10.3) mg/dL Pituitary panel 01/04/23 Range/Units 05:39 Sodium 142 (135-145) mmol/L Potassium 4.0 (3.5-5.5) mmol/L Chloride 106 (96-109) mmol/L Carbon Dioxide 28.1 (21.6-31.8) mmol/L BUN 19.1 (9.0-27.0) mg/dL Creatinine 0.4 L (0.6-1.5) mg/dL Glucose 92 (70-110) mg/dL Calcium 8.5 L (8.7-10.3) mg/dL Adrenal panel 01/04/23 Range/Units 05:39 Sodium 142 (135-145) mmol/L Potassium 4.0 (3.5-5.5) mmol/L Chloride 106 (96-109) mmol/L Carbon Dioxide 28.1 (21.6-31.8) mmol/L BUN 19.1 (9.0-27.0) mg/dL Creatinine 0.4 L (0.6-1.5) mg/dL Glucose 92 (70-110) mg/dL Calcium 8.5 L (8.7-10.3) mg/dL
[2023-01-05] MEDS: SODIUM CHLORIDE 0.9% 1,000 ML IV SCH (09:31)
[2023-01-05] MEDS: MORPHINE SULFATE 4 MG/ML SYRINGE IV PRN (18:46)
[2023-01-06] MEDS: traMADol 50 MG TAB PO PRN (08:24)
[2023-01-06] MEDS: SODIUM CHLORIDE 0.9% 1,000 ML IV SCH (08:27)
[2023-01-06] MEDS: LORazepam 2 MG/ML INJ IV PRN (20:32)
--- NOTE | 2023-01-07 02:58 | PN ---
PROGRESS NOTE DATE OF SERVICE: 01/06/2023 CHIEF COMPLAINTS: 1. Dementia. 2. Failure to thrive. 3. Frequent falls. 4. Lower extremity edema, cellulitis, and ulcers. HISTORY OF PRESENT ILLNESS: This lady remains very confused. She is getting local wound care. Two of her daughters who are co-guardians are working on a discharge plan. Apparently, there was some talk about the patient going home with Sammy who has been taking care of her. However, the whole idea of bringing her in to the hospital was to direct her care then to a long-term care facility because it is not safe for her to be in the home currently where she frequently has been falling and not receiving adequate care. Adult Protective Service has been involved. She will be kept in the hospital until retirement can be found. MMODL / IJN: [id number] /
--- NOTE | 2023-01-07 03:19 | PN ---
PROGRESS NOTE DATE OF SERVICE: 01/05/2023 CHIEF COMPLAINT: Frequent falling, general debility and dementia with cellulitis and ulcers of the lower extremities. HISTORY OF PRESENT ILLNESS: This lady has been extremely agitated and has required Ativan to calm her down. PHYSICAL EXAMINATION: GENERAL: She is arousable. She remains confused. HEENT: Head, ears, eyes, nose, and mouth are normal. CHEST: Clear. CARDIAC: Normal. ABDOMEN: Soft, nontender. EXTREMITIES: Lower extremities are dressed. IMPRESSION: 1. Frequent falling. 2. Dementia. 3. Failure to thrive and general debility. 4. Stasis disease of lower extremities with ulcers and abrasions as well as superficial lacerations. PLAN: Continue with local wound care to legs and await prison placement. MMODL / IJN: [id number] /
--- NOTE | 2023-01-07 03:43 | PN ---
PROGRESS NOTE DATE OF SERVICE: 01/04/2023 CHIEF COMPLAINT: Frequent falling, dementia, and stasis disease and cellulitis of the lower extremities. HISTORY OF PRESENT ILLNESS: This lady remains very agitated and confused. She has been slightly sedated. PHYSICAL EXAMINATION: VITAL SIGNS: Normal. CHEST: Clear. CARDIAC: Normal. ABDOMEN: Soft, nontender. LEGS: Being wrapped. IMPRESSION: 1. Frequent falling. 2. General debility and weakness. 3. Failure to thrive. 4. Dementia. 5. Lower extremity stasis disease with ulcers and cellulitis. PLAN: Continue with local wound care to legs and await residential placement. MMODL / IJN: [id number] /
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
[2023-01-07 12:32] VITALS: BP 132/88; PULSE 89; RESP 24; TEMP 97.3
[2023-01-07] MEDS: SODIUM CHLORIDE 0.9% 1,000 ML IV SCH (14:56)
--- NOTE | 2023-01-07 16:19 | P.DS ---
Providers Date of admission: 01/03/23 14:44 Expected date of discharge: 01/07/23 Attending physician: Scott Carrillo Consults: 01/04/23 10:48 Consult Physician Routine Consulting Provider: Grover Garcia Consult Reason/Comments: Stasis disease Do you want consulting provider notified?: Yes Primary care physician: Scott Carrillo Hospital Course: Patient admitted for wound and celluilits of the left leg as well as worsening confusion. Seen by the vascular surgeon and no need for surgery. The ulceration is minimally tender and has no drainage. Assessment: On exam The patient is confused and cannot provide any history. On Exam the patient is not in distress Breathing is comfortable Abd is soft UE without active lesions RLE with bruises and scratches that are healing LLE shows the wound that is without drainage, has minimal tenderness to touch no significant erythema. Patient Condition at Discharge: Poor Plan - Discharge Summary New Discharge Prescriptions: New Acetaminophen Tab [Tylenol] 650 mg PO Q6HR PRN 30 Days #30 tab PRN Reason: Mild Pain Or Fever > 100.5 Continue Vit C/E/Zn/Coppr/Lutein/Zeaxan [Preservision Areds 2 Softgel] 1 cap PO BID Atorvastatin [Lipitor] 10 mg PO DAILY Furosemide [Lasix] 20 mg PO BID Alendronate Sodium [Fosamax] 70 mg PO Q7D Aspirin [Adult Low Dose Aspirin EC] 81 mg PO DAILY Isosorbide Mononitrate ER [Imdur] 30 mg PO DAILY #30 tab Famotidine [Pepcid] 20 mg PO BID #60 tablet Discontinued Pantoprazole [Protonix] 40 mg PO DAILY HYDROcodone/APAP 5-325MG [Marshall 5-325] 1 tab PO Q8H PRN PRN Reason: Pain Discharge Medication List Alendronate Sodium [Fosamax] 70 mg PO Q7D 11/26/21 [History] Aspirin [Adult Low Dose Aspirin EC] 81 mg PO DAILY 03/22/22 [History] Isosorbide Mononitrate ER [Imdur] 30 mg PO DAILY #30 tab 05/31/22 [Rx] Vit C/E/Zn/Coppr/Lutein/Zeaxan [Preservision Areds 2 Softgel] 1 cap PO BID 11/18/22 [History] Famotidine [Pepcid] 20 mg PO BID #60 tablet 11/25/22 [Rx] Atorvastatin [Lipitor] 10 mg PO DAILY 01/03/23 [History] Furosemide [Lasix] 20 mg PO BID 01/03/23 [History] Acetaminophen Tab [Tylenol] 650 mg PO Q6HR PRN 30 Days #30 tab 01/07/23 [Rx] Follow up Appointment(s)/Referral(s): Scott Carrillo MD [Primary Care Provider] - 1-2 days [facility], [NON-STAFF] - 1 Week Activity/Diet/Wound Care/Special Instructions: Wound care-Change dressing to right monroe every 48 hours. MediHoney, nonstick dressing, secured by rolled gauze.
--- NOTE | 2023-01-08 00:08 | PN ---
PROGRESS NOTE CHIEF COMPLAINT: Inability to ambulate, frequent falls, general debility, weakness and dementia with lower extremity stasis disease and ulcers. HISTORY OF PRESENT ILLNESS: This lady is doing fairly well. There has been no interval change. We are waiting for discharge planning. Apparently, there was a home found for her at [place], but the family has requested that she be brought closer to home. She was declined [facility] for some reason. She has been at [facility] before. The latest word is that there will be a bed at [facility] and this is the family's preference. PHYSICAL EXAMINATION: VITAL SIGNS: Normal. CHEST: Clear. CARDIAC: Normal. ABDOMEN: Soft and nontender. EXTREMITIES: Lower extremities are wrapped. IMPRESSION: 1. Frequent falls. 2. Dementia. 3. Lower extremity stasis disease with ulcers. PLAN: Wait for long term opening at [facility]. JAILYN / BROCK: [id number] /
--- NOTE | 2023-01-19 12:20 | CDI ---
Documentation Clarification Form Date: From: Syeda Zeng Phone: Admit Date: 01/03/2023 02:44:00 PM Patient Name: Della Rosa Visit Number: [id number] Discharge Date: 01/07/2023 05:31:00 PM ATTENTION: The Clinical Documentation Specialists (CDI) and [facility] Coding Staff appreciate your assistance in clarifying documentation. Please respond to the clarification below the line at the bottom and electronically sign. The CDI & [facility] Coding staff will review the response and follow-up if needed. Please note: Queries are made part of the Legal Health Record. If you have any questions, please contact the author of this message via ITS. Dr. Scott Carrillo, Cellulitis is documented in the discharge summary as "cellulitis of the left leg as well as worsening confusion". H&P noted "cellulitis to both lower legs with multiple superficial lacerations and occasional ulcerations". PN's noted "cellulitis of the lower extremities". Additional clarification regarding the site of cellulitis is requested. History/risk factors: frequent falls and general debility with weakness Treatment: local wound care to legs and half-way placement Please clarify the site of cellulitis, if known: [ ] Left lower extremity cellulitis [ ] Bilateral lower extremity cellulitis [ ] Other, please specify: [ ] Unable to determine (Template Last Revised: March 2022) MTDD
== END 2023-01-07 17:31 | DRG 603 ==
LOC: EC 10:06 → 5NMEDONC 14:44 → EEVIPCON 14:44 → 5NMEDONC 16:44
PROVIDERS: ADMIT Family Medicine; ATTEND Family Medicine
DX: L03.116 Cellulitis of left lower limb (principal); F03.911 Unspecified dementia, unspecified severity, with agitation; K44.9 Diaphragmatic hernia without obstruction or gangrene; R29.6 Repeated falls; R62.7 Adult failure to thrive; I87.2 Venous insufficiency (chronic) (peripheral); I25.10 Atherosclerotic heart disease of native coronary artery without angina pectoris; I10 Essential (primary) hypertension; Z96.653 Presence of artificial knee joint, bilateral; E78.5 Hyperlipidemia, unspecified; Z79.02 Long term (current) use of antithrombotics/antiplatelets; Z79.82 Long term (current) use of aspirin; Z79.83 Long term (current) use of bisphosphonates; Z79.899 Other long term (current) drug therapy; Z82.49 Family history of ischemic heart disease and other diseases of the circulatory system; Z95.1 Presence of aortocoronary bypass graft; Z68.22 Body mass index [BMI] 22.0-22.9, adult
CPT/HCPCS: 36415; 71046; 80048; 80053; 83605; 85025; 85652; 86140; 87040; 93005; 96365; 96366; 96375; 99284